=== PATIENT | male | born 1950 | race Two or more races ===

== ENCOUNTER 2020-04-06 17:45 | Inpatient (IN) | payer SELFPAY ==
[~2020-04-06] VITALS: Ht 182.9 cm; Wt 100.2 kg
--- NOTE | 2020-04-06 18:32 | Emergency Room Report ---
History of Present Illness General Chief Complaint: Dyspnea/Respdistress Source: Patient Present Illness HPI Disclaimer: Please note that this report is being documented using LiquidMON technology. This can lead to erroneous entry secondary to incorrect interpretation by the dictating instrument. HPI: 69-year-old male no reported past medical history presented from home due to shortness of breath. Patient tested positive for Covid approximately 2 to 3 weeks ago. He reports a cough, shortness of breath, and lower extremity edema. He denies any diabetes, hypertension or cardiac history. Intermittent fever. Currently not on any medication. Allergies: Coded Allergies: No Known Allergies (Unverified , 04/06/20) COVID-19 Screening Contact w/high risk pt: No Experienced COVID-19 symptoms?: Yes COVID-19 Testing performed [employer]: Yes COVID-19 Screening: Positive COVID-19 COVID-19 Testing Source: 1 month ago Patient History Reviewed Nursing Documentation: PMH: Agreed; PSxH: Agreed Nursing Documentation-PMH Past Medical History: No Stated History Review of Systems All Other Systems: negative except mentioned in HPI Physical Exam Vital Signs Date Time Temp Pulse Resp B/P (MAP) Pulse Ox O2 Delivery O2 Flow Rate FiO2 04/06/20 17:57 98.1 97 24 127/78 (94) 87 Room Air Sp02 EP Interpretation: reviewed, abnormal General Appearance: GCS 15, moderate distress Head: normocephalic, atraumatic Eyes: bilateral eye PERRL, bilateral eye EOMI ENT: hearing grossly normal, moist mucus membranes Neck: full range of motion, supple Respiratory: lungs clear, normal breath sounds, no rhonchi, no retraction, no wheezing, respiratory distress - Respiratory distress Cardiovascular #1: normal peripheral pulses, regular rate, rhythm, no murmur Gastrointestinal: non tender, soft, non-distended, no guarding Neurologic: alert, oriented x3, no focal defects Skin: normal color, warm/dry Procedures Critical Care Time Critical Care Time Critical care is made on this patient due to presentation with COVID-19 pneumonia and hypoxia requiring my acute intervention. Critical care time is 35 minutes and excludes procedures. Medical Decision Making Diagnostic Impression: Primary Impression: Pneumonia due to COVID-19 virus Additional Impression: Hypoxia ER Course MDM: Differential included but not limited to COVID-19 pneumonia, bacterial pneumonia, hypoxic respiratory failure to name a few. Clinical course-IV inserted, IV antibiotics and Decadron given. Patient was hypoxic so oxygen supplementation provided. Septic work-up initiated in the ER. Patient has known COVID-19 positive. Chest x-ray was consistent with bilateral infiltrates and COVID-19 pneumonia. Will require admission the hospital due to hypoxia and COVID-19 pneumonia. Troponin was mildly elevated and BNP elevated as well. Patient given a dose of Lasix in addition to Lovenox secondary to his peripheral edema. Patient will require further work-up on the telemetry floor. Ay have Labs - Laboratory Tests Test 04/06/20 18:54 04/06/20 19:12 04/06/20 20:14 White Blood Count 9.5 K/UL (4.8-10.8) Red Blood Count 4.58 M/UL (4.70-6.10) L Hemoglobin 13.7 G/DL (14.2-18.0) L Hematocrit 43.7 % (42.0-52.0) Mean Corpuscular Volume 95 FL (80-99) Mean Corpuscular Hemoglobin 29.8 PG (27.0-31.0) Mean Corpuscular Hemoglobin Concent 31.3 G/DL (32.0-36.0) L Red Cell Distribution Width 14.4 % (11.6-14.8) Platelet Count 192 K/UL (150-450) Mean Platelet Volume 7.1 FL (6.5-10.1) Neutrophils (%) (Auto) % (45.0-75.0) Lymphocytes (%) (Auto) % (20.0-45.0) Monocytes (%) (Auto) % (1.0-10.0) Eosinophils (%) (Auto) % (0.0-3.0) Basophils (%) (Auto) % (0.0-2.0) Differential Total Cells Counted 100 Neutrophils % (Manual) 82 % (45-75) H Lymphocytes % (Manual) 10 % (20-45) L Monocytes % (Manual) 1 % (1-10) Eosinophils % (Manual) 0 % (0-3) Basophils % (Manual) 2 % (0-2) Band Neutrophils 5 % (0-8) Platelet Estimate Adequate Platelet Morphology Normal Red Blood Cell Morphology Normal Prothrombin Time 12.7 SEC (9.30-11.50) H Prothrombin Time INR 1.2 (0.9-1.1) H Activated Partial Thromboplast Time 28 SEC (23-33) D-Dimer 2.05 mg/L FEU (0.00-0.49) H Sodium Level 135 MMOL/L (136-145) L Potassium Level 3.8 MMOL/L (3.5-5.1) Chloride Level 102 MMOL/L (98-107) Carbon Dioxide Level 27 MMOL/L (21-32) Anion Gap 6 mmol/L (5-15) Blood Urea Nitrogen 25 mg/dL (7-18) H Creatinine 1.2 MG/DL (0.55-1.30) Estimated Glomerular Filtration Rate > 60 mL/min (>60) Glucose Level 97 MG/DL (74-106) Lactic Acid Level 1.80 mmol/L (0.4-2.0) Calcium Level 8.0 MG/DL (8.5-10.1) L Ferritin 643 NG/ML (8-388) H Total Bilirubin 0.8 MG/DL (0.2-1.0) Aspartate Amino Transferase (AST) 148 U/L (15-37) H Alanine Aminotransferase (ALT) 188 U/L (12-78) H Alkaline Phosphatase 126 U/L (46-116) H Lactate Dehydrogenase 735 U/L (81-234) H Troponin I 0.076 ng/mL (0.000-0.056) C-Reactive Protein, Quantitative Pending Pro-B-Type Natriuretic Peptide 06649 pg/mL (0-125) H Total Protein 5.9 G/DL (6.4-8.2) L Albumin 2.0 G/DL (3.4-5.0) L Globulin 3.9 g/dL Albumin/Globulin Ratio 0.5 (1.0-2.7) L Lipase 530 U/L (73-393) H Arterial Blood pH 7.502 (7.350-7.450) Arterial Blood Partial Pressure CO2 33.7 mmHg (35.0-45.0) L Arterial Blood Partial Pressure O2 52.7 mmHg (75.0-100.0) L Arterial Blood HCO3 25.8 mmol/L (22.0-26.0) Arterial Blood Oxygen Saturation 88.5 % (95-100) *L Arterial Blood Base Excess 3.1 (-2-2) H Deo Test Positive Urine Color Yellow Urine Appearance Clear Urine pH 5 (4.5-8.0) Urine Specific [place] 1.010 (1.005-1.035) Urine Protein 3+ (NEGATIVE) H Urine Glucose (UA) Negative (NEGATIVE) Urine Ketones 1+ (NEGATIVE) H Urine Blood 1+ (NEGATIVE) H Urine Nitrite Negative (NEGATIVE) Urine Bilirubin Negative (NEGATIVE) Urine Urobilinogen 4 MG/DL (0.0-1.0) H Urine Leukocyte Esterase 1+ (NEGATIVE) H Urine RBC 0-2 /HPF (0 - 0) H Urine WBC 0-2 /HPF (0 - 0) Urine Squamous Epithelial Cells None /LPF (NONE/OCC) Urine Bacteria Occasional /HPF (NONE) Microbiology Date/Time Source Procedure Growth Status 04/06/20 18:54 Nasopharynx SARS-CoV-2 RdRp Gene Assay - Final Complete On reevaluation: Patient more comfortable but still tachypneic nasal cannula Plan-admission to the telemetry floor under Dr. Magallon EKG Diagnostic Results Rate: tachycardiac Rhythm: other Other Impression Left anterior fascicular block, Rhythm Strip Diag. Results EP Interpretation: yes Rate: 98 Rhythm: NSR, no ectopy Chest X-Ray Diagnostic Results Chest X-Ray Diagnostic Results : Chest X-Ray Ordered: Yes # of Views/Limited/Complete: 1 View Indication: Shortness of Breath Interpretation: other - Bilateral infiltrates noted no pneumothorax, mild ca rdiomegaly Electronically Signed by: Alexander Ojeda MD Last Vital Signs Date Time Temp Pulse Resp B/P (MAP) Pulse Ox O2 Delivery O2 Flow Rate FiO2 04/06/20 17:57 98.1 97 24 127/78 (94) 87 Room Air Disposition: ADMITTED INPATIENT Condition: Serious Scripts No Active Prescriptions or Reported Meds Referrals: NOT CHOSEN IPA/,REFERRING (PCP) Alexander Ojeda M.D. Apr 06, 2020 18:32
[2020-04-06] MEDS ORDERED: Azithromycin 500 MG in NS 275 ML IVPB ONE (19:00)
[2020-04-06] MEDS ORDERED: dexAMETHasone 10mg/ml Inj IV ONE (19:00)
[2020-04-06] MEDS ORDERED: cefTRIAXone 1 GM in NS 55 ML IV ONE (19:00)
[2020-04-06 19:47] LABS: HEMATOCRIT 43.7 % (42.0-52.0); HEMOGLOBIN 13.7 G/DL (14.2-18.0); MEAN CORPUSCULAR VOLUME 95 FL (80-99); PLATELET COUNT 192 K/UL (150-450); RED BLOOD COUNT 4.58 M/UL (4.70-6.10); RED CELL DISTRIBUTION WIDTH 14.4 % (11.6-14.8); WHITE BLOOD COUNT 9.5 K/UL (4.8-10.8)
[2020-04-06 19:57] LABS: INR 1.2 (0.9-1.1)
[2020-04-06 19:58] LABS: ANION GAP 6 mmol/L (5-15); BLOOD UREA NITROGEN 25 mg/dL (7-18); CARBON DIOXIDE 27 MMOL/L (21-32); CHLORIDE 102 MMOL/L (98-107); CREATININE 1.2 MG/DL (0.55-1.30); POTASSIUM 3.8 MMOL/L (3.5-5.1); SODIUM 135 MMOL/L (136-145)
[2020-04-06 20:05] VITALS: BP 124/76
[2020-04-06 20:21] LABS: ALANINE AMINOTRANSFERASE 188 U/L (12-78); ALBUMIN/GLOBULIN RATIO 0.5 (1.0-2.7); ALKALINE PHOSPHATASE 126 U/L (46-116); ASPARTATE AMINO TRANSFERASE 148 U/L (15-37); BILIRUBIN,TOTAL 0.8 MG/DL (0.2-1.0); FERRITIN 643 NG/ML (8-388); LACTATE DEHYDROGENASE 735 U/L (81-234)
[2020-04-06 21:27] LABS: APPEARANCE,URINE CLEAR; BILIRUBIN, URINE NEGATIVE (NEGATIVE); GLUCOSE, URINE (UA) NEGATIVE (NEGATIVE); KETONES,URINE 1+ (NEGATIVE); LEUKOCYTE ESTERASE ,URINE 1+ (NEGATIVE); NITRITE,URINE NEGATIVE (NEGATIVE); PH,URINE 5 (4.5-8.0); PROTEIN,URINE 3+ (NEGATIVE); UROBILINOGEN,URINE 4 MG/DL (0.0-1.0)
[2020-04-06 21:30] LABS: COLOR,URINE YELLOW
[2020-04-06] MEDS ORDERED: Aspirin Baby 81mg ORAL ONE (21:30)
[2020-04-06] MEDS ORDERED: Enoxaparin 40mg Inj SUBQ SCH (21:30)
[2020-04-07] MEDS ORDERED: Albuterol/Ipratropium 3ml neb HHN PRN (01:00)
[2020-04-07 04:00] VITALS: BP 134/93
[2020-04-07 05:52] LABS: HEMATOCRIT 42.5 % (42.0-52.0); HEMOGLOBIN 13.8 G/DL (14.2-18.0); MEAN CORPUSCULAR VOLUME 93 FL (80-99); PLATELET COUNT 186 K/UL (150-450); RED BLOOD COUNT 4.58 M/UL (4.70-6.10); RED CELL DISTRIBUTION WIDTH 14.9 % (11.6-14.8); WHITE BLOOD COUNT 8.3 K/UL (4.8-10.8)
[2020-04-07 06:23] LABS: ALANINE AMINOTRANSFERASE 160 U/L (12-78); ALBUMIN 1.8 G/DL (3.4-5.0); ALBUMIN/GLOBULIN RATIO 0.4 (1.0-2.7); ALKALINE PHOSPHATASE 123 U/L (46-116); ANION GAP 8 mmol/L (5-15); ASPARTATE AMINO TRANSFERASE 108 U/L (15-37); BILIRUBIN,TOTAL 0.7 MG/DL (0.2-1.0); BLOOD UREA NITROGEN 24 mg/dL (7-18); CALCIUM 8.1 MG/DL (8.5-10.1); CARBON DIOXIDE 27 MMOL/L (21-32); CHLORIDE 101 MMOL/L (98-107); CREATININE 1.2 MG/DL (0.55-1.30); PHOSPHORUS 4.3 MG/DL (2.5-4.9); SODIUM 135 MMOL/L (136-145)
[2020-04-07 08:00] VITALS: BP 141/90
--- NOTE | 2020-04-07 08:52 | History & Physical ---
History of Present Illness General Reason for Hospitalization: Dyspnea/Respdistress Present Illness HPI 69-year-old male no reported past medical history presented from home due to shortness of breath. Patient tested positive for Covid approximately 2 to 3 weeks ago. He reports a cough, shortness of breath, and lower extremity edema. He denies any diabetes, hypertension or cardiac history. Intermittent fever. Currently not on any medication. Allergies: Coded Allergies: No Known Allergies (Unverified , 04/06/20) COVID-19 Screening Contact w/high risk pt: No Experienced COVID-19 symptoms?: Yes Coronavirus symptoms experienc: Shortness of Breath, Cough Medication History No Active Prescriptions or Reported Meds Patient History Healthcare decision maker Resuscitation status Advanced Directive on File Review of Systems Review of Symptoms General ROS: no weight loss or fever Psychological ROS: no depression or mood changes, no memory loss Ophthalmic ROS: no visual changes or eye irritation ENT ROS: no nasal congestion, hearing loss, dizziness Allergy and Immunology ROS: no allergic symptoms or urticaria Hematological and Lymphatic ROS: no swollen glands, unusual bleeding or bruising Endocrine ROS: no polyuria, polydipsia, weight changes, temperature intolerance Respiratory ROS: no cough, shortness of breath, or wheezing Cardiovascular ROS: no chest pain or dyspnea on exertion Gastrointestinal ROS: denies abdominal pain, bright red blood in stool. Musculoskeletal ROS: no myalgias or arthralgias Neurological ROS: no TIA or stroke symptoms Dermatological ROS: no new or changing skin lesions, rashes or pruritis Physical Exam Physical Exam General appearance: alert, cooperative, no distress, appears stated age Head: Normocephalic, without obvious abnormality, atraumatic Eyes: conjunctivae/corneas clear. PERRL, EOM's intact. Fundi benign Throat: Lips, mucosa, and tongue normal. Teeth and gums normal Neck: supple, symmetrical, trachea midline, no adenopathy, thyroid: not enlarged, symmetric, no tenderness/mass/nodules, no carotid bruit and no JVD Lungs: + rhonchi bilaterally Heart: regular rate and rhythm, S1, S2 normal, no murmur, click, rub or gallop Abdomen: soft, non-tender. Bowel sounds normal. No masses, no organomegaly Extremities: 1+ pedal edema Pulses: 2+ and symmetric Skin: Skin color, texture, turgor normal. No rashes or lesions Neurologic: Grossly normal Last 24 Hour Vital Signs Date Time Temp Pulse Resp B/P (MAP) Pulse Ox O2 Delivery O2 Flow Rate FiO2 04/07/20 04:00 103 04/07/20 04:00 97.7 22 134/93 (107) 96 04/07/20 01:10 Nasal Cannula 4.0 04/07/20 00:40 97.9 92 28 132/79 98 Nasal Cannula 4.0 04/06/20 20:05 98.0 88 30 124/76 99 Nasal Cannula 2.0 04/06/20 19:06 105 28 Room Air 04/06/20 17:57 98.1 97 24 127/78 (94) 87 Room Air Intake and Output 04/06/20 04/07/20 19:00 07:00 Intake Total 240 ml Balance 240 ml Intake Oral 240 ml # Voids 2 Laboratory Tests Test 04/06/20 18:54 04/06/20 19:12 04/06/20 20:14 04/07/20 03:30 White Blood Count 9.5 K/UL (4.8-10.8) 8.3 K/UL (4.8-10.8) Red Blood Count 4.58 M/UL (4.70-6.10) L 4.58 M/UL (4.70-6.10) L Hemoglobin 13.7 G/DL (14.2-18.0) L 13.8 G/DL (14.2-18.0) L Hematocrit 43.7 % (42.0-52.0) 42.5 % (42.0-52.0) Mean Corpuscular Volume 95 FL (80-99) 93 FL (80-99) Mean Corpuscular Hemoglobin 29.8 PG (27.0-31.0) 30.1 PG (27.0-31.0) Mean Corpuscular Hemoglobin Concent 31.3 G/DL (32.0-36.0) L 32.5 G/DL (32.0-36.0) Red Cell Distribution Width 14.4 % (11.6-14.8) 14.9 % (11.6-14.8) H Platelet Count 192 K/UL (150-450) 186 K/UL (150-450) Mean Platelet Volume 7.1 FL (6.5-10.1) 6.6 FL (6.5-10.1) Neutrophils (%) (Auto) % (45.0-75.0) % (45.0-75.0) Lymphocytes (%) (Auto) % (20.0-45.0) % (20.0-45.0) Monocytes (%) (Auto) % (1.0-10.0) % (1.0-10.0) Eosinophils (%) (Auto) % (0.0-3.0) % (0.0-3.0) Basophils (%) (Auto) % (0.0-2.0) % (0.0-2.0) Differential Total Cells Counted 100 Neutrophils % (Manual) 82 % (45-75) H Pending Lymphocytes % (Manual) 10 % (20-45) L Pending Monocytes % (Manual) 1 % (1-10) Eosinophils % (Manual) 0 % (0-3) Basophils % (Manual) 2 % (0-2) Band Neutrophils 5 % (0-8) Platelet Estimate Adequate Pending Platelet Morphology Normal Pending Red Blood Cell Morphology Normal Prothrombin Time 12.7 SEC (9.30-11.50) H Prothromb Time International Ratio 1.2 (0.9-1.1) H Activated Partial Thromboplast Time 28 SEC (23-33) D-Dimer 2.05 mg/L FEU (0.00-0.49) H Sodium Level 135 MMOL/L (136-145) L 135 MMOL/L (136-145) L Potassium Level 3.8 MMOL/L (3.5-5.1) 4.0 MMOL/L (3.5-5.1) Chloride Level 102 MMOL/L (98-107) 101 MMOL/L (98-107) Carbon Dioxide Level 27 MMOL/L (21-32) 27 MMOL/L (21-32) Anion Gap 6 mmol/L (5-15) 8 mmol/L (5-15) Blood Urea Nitrogen 25 mg/dL (7-18) H 24 mg/dL (7-18) H Creatinine 1.2 MG/DL (0.55-1.30) 1.2 MG/DL (0.55-1.30) Estimat Glomerular Filtration Rate > 60 mL/min (>60) > 60 mL/min (>60) Glucose Level 97 MG/DL (74-106) 163 MG/DL (74-106) H Lactic Acid Level 1.80 mmol/L (0.4-2.0) Calcium Level 8.0 MG/DL (8.5-10.1) L 8.1 MG/DL (8.5-10.1) L Ferritin 643 NG/ML (8-388) H Total Bilirubin 0.8 MG/DL (0.2-1.0) 0.7 MG/DL (0.2-1.0) Aspartate Amino Transf (AST/SGOT) 148 U/L (15-37) H 108 U/L (15-37) H Alanine Aminotransferase (ALT/SGPT) 188 U/L (12-78) H 160 U/L (12-78) H Alkaline Phosphatase 126 U/L (46-116) H 123 U/L (46-116) H Lactate Dehydrogenase 735 U/L (81-234) H Troponin I 0.076 ng/mL (0.000-0.056) C-Reactive Protein, Quantitative Pending Pro-B-Type Natriuretic Peptide 14229 pg/mL (0-125) H Total Protein 5.9 G/DL (6.4-8.2) L 5.8 G/DL (6.4-8.2) L Albumin 2.0 G/DL (3.4-5.0) L 1.8 G/DL (3.4-5.0) L Globulin 3.9 g/dL 4.0 g/dL Albumin/Globulin Ratio 0.5 (1.0-2.7) L 0.4 (1.0-2.7) L Lipase 530 U/L (73-393) H Arterial Blood pH 7.502 (7.350-7.450) Arterial Blood Partial Pressure CO2 33.7 mmHg (35.0-45.0) L Arterial Blood Partial Pressure O2 52.7 mmHg (75.0-100.0) L Arterial Blood HCO3 25.8 mmol/L (22.0-26.0) Arterial Blood Oxygen Saturation 88.5 % (95-100) *L Arterial Blood Base Excess 3.1 (-2-2) H Deo Test Positive Urine Color Yellow Urine Appearance Clear Urine pH 5 (4.5-8.0) Urine Specific [place] 1.010 (1.005-1.035) Urine Protein 3+ (NEGATIVE) H Urine Glucose (UA) Negative (NEGATIVE) Urine Ketones 1+ (NEGATIVE) H Urine Blood 1+ (NEGATIVE) H Urine Nitrite Negative (NEGATIVE) Urine Bilirubin Negative (NEGATIVE) Urine Urobilinogen 4 MG/DL (0.0-1.0) H Urine Leukocyte Esterase 1+ (NEGATIVE) H Urine RBC 0-2 /HPF (0 - 0) H Urine WBC 0-2 /HPF (0 - 0) Urine Squamous Epithelial Cells None /LPF (NONE/OCC) Urine Bacteria Occasional /HPF (NONE) Phosphorus Level 4.3 MG/DL (2.5-4.9) Magnesium Level 1.6 MG/DL (1.8-2.4) L Microbiology Date/Time Source Procedure Growth Status 04/06/20 18:54 Nasopharynx SARS-CoV-2 RdRp Gene Assay - Final Complete Height (Feet): 6 Height (Inches): 0.00 Weight (Pounds): 200 Medications Current Medications Medications (Trade) Dose Ordered Sig/Rima Route PRN Reason Start Time Stop Time Status Last Admin Dose Admin Acetaminophen (Tylenol) 650 mg Q6H PRN ORAL For Pain 04/07/20 01:00 05/07/20 00:59 Acetaminophen (Tylenol) 650 mg Q6H PRN ORAL Temp >100.5 04/07/20 01:00 05/07/20 00:59 Albuterol/ Ipratropium (Albuterol/ Ipratropium) 3 ml Q4H PRN HHN Shortness of Breath 04/07/20 01:00 04/12/20 00:59 Dexamethasone Sodium Phosphate (Decadron 4mg/ml vial) 6 mg DAILY IVP 04/07/20 09:00 04/16/20 08:59 Furosemide (Lasix) 20 mg DAILY IV 04/07/20 09:00 05/07/20 08:59 Heparin Sodium (Porcine) (Heparin 5000 units/ml) 5,000 units EVERY 12 HOURS SUBQ 04/07/20 09:00 05/22/20 08:59 Assessment/Plan Diagnosis [place] I: #COVID infection #elevated trop #LE edema #Elevated BNP #elevated lipase - admit tele - ID eval - pulm eval - cardiology eval - 2d echo - LE duplex - dexamethasone - monitor lytes - abd US - lasix 20 IV daily - metop 25 BID - aspirin 81mg daily MIPS Hospital declaration I spent 70 minutes on this patient's case, and 35 minutes was dedicated to counseling and/or care coordination. MIPS ([employer]-based Incentive Payment System) Applicable CPT: 83106, 09332 CHECK ALL THAT ARE MET: Measure #5 (CHF): All ages. Prescribe [place]/ARB upon discharge for patients with left ventricular systolic dysfunction. If not, the reason is clearly documented in the medical chart. Measure #8 (CHF): All ages. Prescribe a beta sharifa upon discharge for patients with left ventricular systolic dysfunction. If not, the reason is clearly documented in the medical chart. Measure #47 Advance care plan or surrogate decision maker documented in the medical record. Measure #130 The provider has documented, updated, or reviewed the patients current medication list and has documented it in the patients note. Measure #374 (All): Send report to referring provider. Measure #407(Sepsis due to MSSA bacteremia): Age 18+ Patient treated with a beta-lactam antibiotic (Nafcillin, Oxacillin or Cefazolin) as definitive therapy. MEDICAL COMPLEXITY High complexity medical decision making (need 2/3 categories) Problem - need 4 points Acute/new problem with new plan for workup (4 points, 1 max) Acute/new problem without additional workup (3 points, 1 max) Unstable chronic problem actively being managed (2 point each, 2 max) Stable chronic problem actively being managed (1 point each, 2 max) Self-limited/transient process (constipation, muscle ache, etc) (1 point each, 2 max) Data - need 4 points Reviewed labs/imaging studies (1 points, 2 max) Independent review of imaging (EKG, xrays, etc) (2 points, 2 max) Discussed case with consult/other MD/RN (2 points, 2 max) High Risk - qualify if have one of the following: Severe exacerbation of acute problem, acute mental status change, IV narcotics, monitoring drug levels (vancomycin, INR, tacrolimus etc) Didier Magallon M.D. Apr 07, 2020 08:52
[2020-04-07] MEDS: Heparin 5000 units/ml inj SUBQ SCH ×2 (09:08→21:23)
[2020-04-07 12:00] VITALS: BP 147/96
--- NOTE | 2020-04-07 14:04 | Consultation ---
Consult Note Consult Note DATE OF CONSULTATION: 04/07/2020 CONSULTING PHYSICIAN: Chan Lucio MD. ATTENDING PHYSICIAN: Dr. Magallon REASON FOR CONSULTATION: COVID-19, shortness of breath HISTORY OF PRESENT ILLNESS: This is a 69-year-old male with no reported past medical history who presented to the ER from home for evaluation of shortness of breath. Patient reports testing positive for COVID-19 approximately 2 to 3 weeks ago. He reports associated cough, and lower extremity edema. He denies any diabetes, hypertension, or cardiac history. Initial laboratory studies are remarkable for elevated LFTs, elevated troponin, elevated BUN, respiratory alkalosis, proteinuria, ketonuria and presence of leukocyte esterase on UA. Chest x-ray read by ER MD showed bilateral infiltrates with mild cardiomegaly. Patient received aspirin, Lasix, Lovenox, Decadron, ceftriaxone and azithromycin in the ER and was admitted to the hospital for further management. On evaluation, patient is sitting on the edge of bed with mild respiratory distress on 4 L NC. Patient is saturating at 96-98%. PAST MEDICAL HISTORY: Nonpertinent per patient MEDICATIONS: None per patient ALLERGIES: No known allergies FAMILY HISTORY: Unknown PERSONAL/SOCIAL HISTORY: Patient is from home REVIEW OF SYSTEMS: Negative except for mentioned in HPI PHYSICAL EXAMINATION: VITAL SIGNS: Blood pressure 147/96, heart rate 104, respiratory rate 22, weight 90 kg, height 182 cm. General: Sitting on the edge of bed with normal work of breathing on 4 L NC HEENT: Head exam reveals that the head is normocephalic, atraumatic without deformity or unusual swelling. Pupils are PERRLA. CHEST AND LUNGS: Reveals clear, normal, symmetrical breath sounds with no adventitious sounds. CARDIOVASCULAR: Reveals normal S1, S2 without murmurs, rubs, or clicks. ABDOMEN: Soft with no tenderness or organomegaly. RECTAL: Deferred. MUSCULOSKELETAL: There is no tenderness to palpation. Range of motion is normal. Bilateral 1+ pitting edema in lower extremities worse on the left NEUROLOGICAL: Alert and oriented x3 , nonfocal LABORATORY DATA: Laboratory testing shows WBC 8.3, hemoglobin 13.8. Sodium 135, BUN 24, glucose 163, calcium 8.1, magnesium 1.6, AST 108, ALT 160, alk phos 123 Chemistries show sodium 135, BUN 24, glucose 163, calcium 8.1, magnesium 1.6, AST 108, ALT 160, alk phos 123, Troponin 0.076, BNP 12274 Urinalysis shows 3+ protein, 1+ ketones, 1+ blood, 1+ leuk esterase Assessment/Plan 1. Hyperglycemia -Monitor BG -Of note, he is on Decadron 2. Leg edema -Patient is on Lasix -Venous duplex ultrasound of LE pending - 2D echo pending 3. COVID-19 pneumonia with respiratory distress -Agree with dexamethasone - s/p broad spectrum Abx in ER - Antibiotics per ID -Currently saturating at 96-98% on 4 L NC -Continue providing on supplemental oxygen 4. DVT prophylaxis -On heparin 5. Respiratory alkalosis -Continue supplemental oxygen -Monitor ABG 6. ?UTI - per primary MD, and ID 7. The care for this patient was discussed with my supervising physician. Time spent for this case was approximately 31 minutes. Javan Wren Apr 07, 2020 14:04
--- NOTE | 2020-04-07 15:12 | Diagnostic Imaging Report ---
Procedure: XRAY Chest 1v Reason for study: Reason For Exam: SOB Comparison films: None. FINDINGS: A single one view chest is obtained. Vascularity is normal. Diffuse bilateral infiltrates noted. There is cardiomegaly. CP angles are sharp. The bony thorax appear unremarkable. IMPRESSION: Diffuse bilateral infiltrates.
--- NOTE | 2020-04-07 15:14 | Consultation ---
DATE OF CONSULTATION: 04/07/2020 INFECTIOUS DISEASES CONSULTATION CONSULTING PHYSICIAN: Hernan Greene MD This consult is for coverage of Catia Oglesby MD. PRIMARY ATTENDING PHYSICIAN: Didier Magallon MD REASON FOR CONSULT: COVID-19 disease. HISTORY OF PRESENT ILLNESS: This is a 69-year-old male admitted yesterday from home because of shortness of breath, coughing, and legs edema. The patient states that they had a positive COVID test a couple of weeks ago. PAST MEDICAL HISTORY: Insignificant. 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 ALLERGIES: No known drug allergies. MEDICATIONS: Getting Lasix, heparin, dexamethasone, albuterol/ipratropium inhaler, and Tylenol. Got a dose of ceftriaxone, Lasix, and azithromycin in the ER. SOCIAL HISTORY: from many years ago. Ex-smoker. Drinks alcohol. REVIEW OF SYSTEMS: As in history of present illness. PHYSICAL EXAMINATION: VITAL SIGNS: Temperature 97.7, pulse 103, blood pressure 134/93. GENERAL APPEARANCE: Well developed. HEAD AND NECK: [place] conjunctivae. HEART: Normal rate. LUNGS: Clear. ABDOMEN: Obese, soft. EXTREMITIES: He has edema of both legs. LABORATORY AND DIAGNOSTIC DATA: WBC 8.3, hemoglobin 13.8, hematocrit 42.5, and platelet is 186,000. Sodium 135, potassium 4, chloride 101, bicarb 27, BUN 24, creatinine 1.2, glucose is 163. AST 108, ALT 160, alkaline phosphatase 123, bilirubin 0.7. Troponin 0.076. Albumin is 1.8. Blood gas showed pH of 7.502, pCO2 of 33.5, pO2 of 52.7, O2 saturation is 88.5. COVID test was positive. IMPRESSION: COVID-19 disease. The patient states that he was positive for a couple of weeks. He has hypoxemia, hypoxemic respiratory failure. He has elevated transaminase. He has elevated BNP, may have CHF. He has decreased albumin. He has elevated lipase, likely pancreatitis. Alcohol abuse. RECOMMENDATION: Continue with dexamethasone. We will order echocardiogram and abdominal ultrasound. We will follow clinically. At the end of my exam, I thank Dr. Magallon for involving me in the care of this patient. Hernan Greene M.D. DR: NICOL JOB#: [id number] CC: [email or web address]
--- NOTE | 2020-04-07 15:20 | Diagnostic Imaging Report ---
EXAM: ULTRASOUND Venous Duplex Scan Ken Leg CLINICAL HISTORY: Leg pain and edema. COMPARISON: None TECHNIQUE: Doppler examination include grayscale images obtained with and without compression, and color and spectral doppler analysis. FINDINGS: Doppler examination shows normal spontaneity, phasicity, compressibility in the bilateral lower extremities. There is no thrombus identified by grayscale. Normal color and spectral flow is identified. There is no evidence of valvular incompetency or insufficiency. There is a left Lang[place]'s cyst noted. IMPRESSION: NO EVIDENCE OF DVT. LEFT LANGFORD'S CYST.
[2020-04-07 16:00] VITALS: BP 145/92
--- NOTE | 2020-04-07 17:05 | Cardiac Electrophysiology PN ---
Subjective Subjective [id number] Objective Last 24 Hour Vital Signs Date Time Temp Pulse Resp B/P (MAP) Pulse Ox O2 Delivery O2 Flow Rate FiO2 04/07/20 12:00 98.0 22 147/96 (113) 99 04/07/20 12:00 104 04/07/20 09:00 Nasal Cannula 4.0 04/07/20 08:00 101 04/07/20 08:00 98.2 23 141/90 (107) 93 04/07/20 04:00 103 04/07/20 04:00 97.7 22 134/93 (107) 96 04/07/20 01:10 Nasal Cannula 4.0 04/07/20 00:40 97.9 92 28 132/79 98 Nasal Cannula 4.0 04/06/20 20:05 98.0 88 30 124/76 99 Nasal Cannula 2.0 04/06/20 19:06 105 28 Room Air 04/06/20 17:57 98.1 97 24 127/78 (94) 87 Room Air Intake and Output 04/06/20 04/07/20 19:00 07:00 Intake Total 240 ml Balance 240 ml Intake Oral 240 ml # Voids 2 Laboratory Tests Test 04/06/20 18:54 04/06/20 19:12 04/06/20 20:14 04/07/20 03:30 White Blood Count 9.5 K/UL (4.8-10.8) 8.3 K/UL (4.8-10.8) Red Blood Count 4.58 M/UL (4.70-6.10) L 4.58 M/UL (4.70-6.10) L Hemoglobin 13.7 G/DL (14.2-18.0) L 13.8 G/DL (14.2-18.0) L Hematocrit 43.7 % (42.0-52.0) 42.5 % (42.0-52.0) Mean Corpuscular Volume 95 FL (80-99) 93 FL (80-99) Mean Corpuscular Hemoglobin 29.8 PG (27.0-31.0) 30.1 PG (27.0-31.0) Mean Corpuscular Hemoglobin Concent 31.3 G/DL (32.0-36.0) L 32.5 G/DL (32.0-36.0) Red Cell Distribution Width 14.4 % (11.6-14.8) 14.9 % (11.6-14.8) H Platelet Count 192 K/UL (150-450) 186 K/UL (150-450) Mean Platelet Volume 7.1 FL (6.5-10.1) 6.6 FL (6.5-10.1) Neutrophils (%) (Auto) % (45.0-75.0) % (45.0-75.0) Lymphocytes (%) (Auto) % (20.0-45.0) % (20.0-45.0) Monocytes (%) (Auto) % (1.0-10.0) % (1.0-10.0) Eosinophils (%) (Auto) % (0.0-3.0) % (0.0-3.0) Basophils (%) (Auto) % (0.0-2.0) % (0.0-2.0) Differential Total Cells Counted 100 100 Neutrophils % (Manual) 82 % (45-75) H 96 % (45-75) H Lymphocytes % (Manual) 10 % (20-45) L 3 % (20-45) L Monocytes % (Manual) 1 % (1-10) 1 % (1-10) Eosinophils % (Manual) 0 % (0-3) 0 % (0-3) Basophils % (Manual) 2 % (0-2) 0 % (0-2) Band Neutrophils 5 % (0-8) 0 % (0-8) Platelet Estimate Adequate Adequate Platelet Morphology Normal Normal Red Blood Cell Morphology Normal Prothrombin Time 12.7 SEC (9.30-11.50) H Prothromb Time International Ratio 1.2 (0.9-1.1) H Activated Partial Thromboplast Time 28 SEC (23-33) D-Dimer 2.05 mg/L FEU (0.00-0.49) H Sodium Level 135 MMOL/L (136-145) L 135 MMOL/L (136-145) L Potassium Level 3.8 MMOL/L (3.5-5.1) 4.0 MMOL/L (3.5-5.1) Chloride Level 102 MMOL/L (98-107) 101 MMOL/L (98-107) Carbon Dioxide Level 27 MMOL/L (21-32) 27 MMOL/L (21-32) Anion Gap 6 mmol/L (5-15) 8 mmol/L (5-15) Blood Urea Nitrogen 25 mg/dL (7-18) H 24 mg/dL (7-18) H Creatinine 1.2 MG/DL (0.55-1.30) 1.2 MG/DL (0.55-1.30) Estimat Glomerular Filtration Rate > 60 mL/min (>60) > 60 mL/min (>60) Glucose Level 97 MG/DL (74-106) 163 MG/DL (74-106) H Lactic Acid Level 1.80 mmol/L (0.4-2.0) Calcium Level 8.0 MG/DL (8.5-10.1) L 8.1 MG/DL (8.5-10.1) L Ferritin 643 NG/ML (8-388) H Total Bilirubin 0.8 MG/DL (0.2-1.0) 0.7 MG/DL (0.2-1.0) Aspartate Amino Transf (AST/SGOT) 148 U/L (15-37) H 108 U/L (15-37) H Alanine Aminotransferase (ALT/SGPT) 188 U/L (12-78) H 160 U/L (12-78) H Alkaline Phosphatase 126 U/L (46-116) H 123 U/L (46-116) H Lactate Dehydrogenase 735 U/L (81-234) H Troponin I 0.076 ng/mL (0.000-0.056) C-Reactive Protein, Quantitative Pending Pro-B-Type Natriuretic Peptide 77132 pg/mL (0-125) H Total Protein 5.9 G/DL (6.4-8.2) L 5.8 G/DL (6.4-8.2) L Albumin 2.0 G/DL (3.4-5.0) L 1.8 G/DL (3.4-5.0) L Globulin 3.9 g/dL 4.0 g/dL Albumin/Globulin Ratio 0.5 (1.0-2.7) L 0.4 (1.0-2.7) L Lipase 530 U/L (73-393) H Arterial Blood pH 7.502 (7.350-7.450) Arterial Blood Partial Pressure CO2 33.7 mmHg (35.0-45.0) L Arterial Blood Partial Pressure O2 52.7 mmHg (75.0-100.0) L Arterial Blood HCO3 25.8 mmol/L (22.0-26.0) Arterial Blood Oxygen Saturation 88.5 % (95-100) *L Arterial Blood Base Excess 3.1 (-2-2) H Deo Test Positive Urine Color Yellow Urine Appearance Clear Urine pH 5 (4.5-8.0) Urine Specific [place] 1.010 (1.005-1.035) Urine Protein 3+ (NEGATIVE) H Urine Glucose (UA) Negative (NEGATIVE) Urine Ketones 1+ (NEGATIVE) H Urine Blood 1+ (NEGATIVE) H Urine Nitrite Negative (NEGATIVE) Urine Bilirubin Negative (NEGATIVE) Urine Urobilinogen 4 MG/DL (0.0-1.0) H Urine Leukocyte Esterase 1+ (NEGATIVE) H Urine RBC 0-2 /HPF (0 - 0) H Urine WBC 0-2 /HPF (0 - 0) Urine Squamous Epithelial Cells None /LPF (NONE/OCC) Urine Bacteria Occasional /HPF (NONE) Anisocytosis 1+ Phosphorus Level 4.3 MG/DL (2.5-4.9) Magnesium Level 1.6 MG/DL (1.8-2.4) L Microbiology Date/Time Source Procedure Growth Status 04/06/20 18:54 Nasopharynx SARS-CoV-2 RdRp Gene Assay - Final Complete Tutu Farah MD Apr 07, 2020 17:05
--- NOTE | 2020-04-07 18:04 | Neurology Progress Note ---
Interim History Interim History Interim History seen this am for encephalopathy. 69-year-old male no reported past medical history presented from home due to shortness of breath. Patient tested positive for Covid approximately 2 to 3 weeks ago. He reports a cough, shortness of breath, and lower extremity edema. He denies any diabetes, hypertension or cardiac history. Intermittent fever. Now on oxygen, more responsive, non focal Objective Physical Exam Last Vital Signs Date Time Temp Pulse Resp B/P (MAP) Pulse Ox O2 Delivery O2 Flow Rate FiO2 04/07/20 16:00 97.5 23 145/92 (109) 100 04/07/20 12:00 104 04/07/20 09:00 Nasal Cannula 4.0 Laboratory Tests Test 04/06/20 18:54 04/06/20 19:12 04/06/20 20:14 04/07/20 03:30 White Blood Count 9.5 K/UL (4.8-10.8) 8.3 K/UL (4.8-10.8) Red Blood Count 4.58 M/UL (4.70-6.10) L 4.58 M/UL (4.70-6.10) L Hemoglobin 13.7 G/DL (14.2-18.0) L 13.8 G/DL (14.2-18.0) L Hematocrit 43.7 % (42.0-52.0) 42.5 % (42.0-52.0) Mean Corpuscular Volume 95 FL (80-99) 93 FL (80-99) Mean Corpuscular Hemoglobin 29.8 PG (27.0-31.0) 30.1 PG (27.0-31.0) Mean Corpuscular Hemoglobin Concent 31.3 G/DL (32.0-36.0) L 32.5 G/DL (32.0-36.0) Red Cell Distribution Width 14.4 % (11.6-14.8) 14.9 % (11.6-14.8) H Platelet Count 192 K/UL (150-450) 186 K/UL (150-450) Mean Platelet Volume 7.1 FL (6.5-10.1) 6.6 FL (6.5-10.1) Neutrophils (%) (Auto) % (45.0-75.0) % (45.0-75.0) Lymphocytes (%) (Auto) % (20.0-45.0) % (20.0-45.0) Monocytes (%) (Auto) % (1.0-10.0) % (1.0-10.0) Eosinophils (%) (Auto) % (0.0-3.0) % (0.0-3.0) Basophils (%) (Auto) % (0.0-2.0) % (0.0-2.0) Differential Total Cells Counted 100 100 Neutrophils % (Manual) 82 % (45-75) H 96 % (45-75) H Lymphocytes % (Manual) 10 % (20-45) L 3 % (20-45) L Monocytes % (Manual) 1 % (1-10) 1 % (1-10) Eosinophils % (Manual) 0 % (0-3) 0 % (0-3) Basophils % (Manual) 2 % (0-2) 0 % (0-2) Band Neutrophils 5 % (0-8) 0 % (0-8) Platelet Estimate Adequate Adequate Platelet Morphology Normal Normal Red Blood Cell Morphology Normal Prothrombin Time 12.7 SEC (9.30-11.50) H Prothromb Time International Ratio 1.2 (0.9-1.1) H Activated Partial Thromboplast Time 28 SEC (23-33) D-Dimer 2.05 mg/L FEU (0.00-0.49) H Sodium Level 135 MMOL/L (136-145) L 135 MMOL/L (136-145) L Potassium Level 3.8 MMOL/L (3.5-5.1) 4.0 MMOL/L (3.5-5.1) Chloride Level 102 MMOL/L (98-107) 101 MMOL/L (98-107) Carbon Dioxide Level 27 MMOL/L (21-32) 27 MMOL/L (21-32) Anion Gap 6 mmol/L (5-15) 8 mmol/L (5-15) Blood Urea Nitrogen 25 mg/dL (7-18) H 24 mg/dL (7-18) H Creatinine 1.2 MG/DL (0.55-1.30) 1.2 MG/DL (0.55-1.30) Estimat Glomerular Filtration Rate > 60 mL/min (>60) > 60 mL/min (>60) Glucose Level 97 MG/DL (74-106) 163 MG/DL (74-106) H Lactic Acid Level 1.80 mmol/L (0.4-2.0) Calcium Level 8.0 MG/DL (8.5-10.1) L 8.1 MG/DL (8.5-10.1) L Ferritin 643 NG/ML (8-388) H Total Bilirubin 0.8 MG/DL (0.2-1.0) 0.7 MG/DL (0.2-1.0) Aspartate Amino Transf (AST/SGOT) 148 U/L (15-37) H 108 U/L (15-37) H Alanine Aminotransferase (ALT/SGPT) 188 U/L (12-78) H 160 U/L (12-78) H Alkaline Phosphatase 126 U/L (46-116) H 123 U/L (46-116) H Lactate Dehydrogenase 735 U/L (81-234) H Troponin I 0.076 ng/mL (0.000-0.056) C-Reactive Protein, Quantitative Pending Pro-B-Type Natriuretic Peptide 93232 pg/mL (0-125) H Total Protein 5.9 G/DL (6.4-8.2) L 5.8 G/DL (6.4-8.2) L Albumin 2.0 G/DL (3.4-5.0) L 1.8 G/DL (3.4-5.0) L Globulin 3.9 g/dL 4.0 g/dL Albumin/Globulin Ratio 0.5 (1.0-2.7) L 0.4 (1.0-2.7) L Lipase 530 U/L (73-393) H Arterial Blood pH 7.502 (7.350-7.450) Arterial Blood Partial Pressure CO2 33.7 mmHg (35.0-45.0) L Arterial Blood Partial Pressure O2 52.7 mmHg (75.0-100.0) L Arterial Blood HCO3 25.8 mmol/L (22.0-26.0) Arterial Blood Oxygen Saturation 88.5 % (95-100) *L Arterial Blood Base Excess 3.1 (-2-2) H Deo Test Positive Urine Color Yellow Urine Appearance Clear Urine pH 5 (4.5-8.0) Urine Specific [place] 1.010 (1.005-1.035) Urine Protein 3+ (NEGATIVE) H Urine Glucose (UA) Negative (NEGATIVE) Urine Ketones 1+ (NEGATIVE) H Urine Blood 1+ (NEGATIVE) H Urine Nitrite Negative (NEGATIVE) Urine Bilirubin Negative (NEGATIVE) Urine Urobilinogen 4 MG/DL (0.0-1.0) H Urine Leukocyte Esterase 1+ (NEGATIVE) H Urine RBC 0-2 /HPF (0 - 0) H Urine WBC 0-2 /HPF (0 - 0) Urine Squamous Epithelial Cells None /LPF (NONE/OCC) Urine Bacteria Occasional /HPF (NONE) Anisocytosis 1+ Phosphorus Level 4.3 MG/DL (2.5-4.9) Magnesium Level 1.6 MG/DL (1.8-2.4) L General: well developed Head: normocophalic Neck: no rigidity EENT: benign Neurologic Exam Objective nc at more alert, responsive, oriented x 2 non focal, diffuse weakness Impression/Recommendations Problems: (1) Hypoxia (2) Pneumonia due to COVID-19 virus Diagnostic Impression encephalopathy likely 2/2 covid non focal exam defer neuro imaging delirium precautions Mark Edouard MD Apr 07, 2020 18:04
--- NOTE | 2020-04-07 18:15 | Consultation ---
DATE OF CONSULTATION: 04/07/2020 CARDIOLOGY CONSULTATION CONSULTING PHYSICIAN: Tutu Farah MD. REFERRING PHYSICIAN: Didier Magallon MD. REASON FOR CONSULTATION: Non-ST elevation myocardial infarction, congestive heart failure, as well as frequent PVCs in a patient with COVID pneumonia. HISTORY OF PRESENT ILLNESS: The patient is a 69-year-old gentleman who presented to the emergency room with shortness of breath and cough and he had also positive COVID test a couple of weeks ago. The patient also has history of surgical amputation of the left thumb. The patient was noted to have elevated troponin as well as elevated brain natriuretic peptide. On telemetry, the patient has frequent PVCs and Cardiology consultation was obtained for further evaluation and management. REVIEW OF SYSTEMS: Negative other than what was mentioned in history of present illness. PAST MEDICAL HISTORY: As mentioned above. FAMILY HISTORY: Noncontributory. MEDICATIONS: None. ALLERGIES: No known drug allergies. SOCIAL HISTORY: He lives at home. Does not smoke or drink alcohol. PHYSICAL EXAMINATION: VITAL SIGNS: Show blood pressure of 147/96, pulse 100, respirations 18, temperature 98. HEAD AND NECK: Shows mild JVD. LUNGS: Decreased breath sounds. CARDIOVASCULAR: Shows regular S1 and S2 with no gallop. ABDOMEN: Soft. EXTREMITIES: 1+ pitting edema. LABORATORY DATA: Labs show white count 8.3, hemoglobin 13.8, hematocrit 42, and platelet count 186,000. Sodium is 135, potassium 4.0, BUN of 24, creatinine 1.2, and glucose of 163. BNP is 12,342 and troponin is 0.076. ASSESSMENT AND PLAN: 1. Non-ST elevation myocardial infarction with troponin of 0.076. It could be some myocarditis due to the patient's COVID. The patient does not have renal failure and the creatinine is 1.2. We will repeat troponin as well as EKG and echocardiogram for further evaluation. 2. Congestive heart failure with BNP of more than 12,000. Again echocardiogram is pending. Continue the patient on Lasix 20 mg IV daily. 3. Elevated troponin. The patient is already on aspirin 81 mg daily and metoprolol 25 mg b.i.d. 4. Frequent PVCs. I will see what the echocardiogram shows, and rule out for myocardial infarction. Continue metoprolol 25 mg b.i.d. 5. COVID-19 pneumonia, on dexamethasone per ID. Thank you very much for allowing me to participate in the care of this patient. Please do not hesitate to contact me for any questions regarding my evaluation. Tutu Farah M.D. DR: KEIRY JOB#: [id number] CC:
--- NOTE | 2020-04-07 18:25 | Consultation ---
History of Present Illness General Date patient seen: Apr 07, 2020 Reason for Hospitalization: Dyspnea/Respdistress Present Illness HPI 69-year-old male no reported past medical history presented from home due to shortness of breath. Patient tested positive for Covid approximately 2 to 3 weeks ago. He reports a cough, shortness of breath, and lower extremity edema. He denies any diabetes, hypertension or cardiac history. Intermittent fever. Currently not on any medication. noted to have abnormal lft's. surgery called toe vlauate. no abd pain. no n/v/f/c. Allergies: Coded Allergies: No Known Allergies (Unverified , 04/06/20) COVID-19 Screening Contact w/high risk pt: No Experienced COVID-19 symptoms?: Yes Coronavirus symptoms experienc: Shortness of Breath, Cough Medication History No Active Prescriptions or Reported Meds Patient History History Provided By: Patient Healthcare decision maker Resuscitation status Advanced Directive on File Past Medical/Surgical History Past Medical/Surgical History: (1) Abnormal LFTs (2) Hypoxia (3) Pneumonia due to COVID-19 virus Review of Systems Review of Symptoms General ROS: no weight loss or fever Psychological ROS: no depression or mood changes, no memory loss Ophthalmic ROS: no visual changes or eye irritation ENT ROS: no nasal congestion, hearing loss, dizziness Allergy and Immunology ROS: no allergic symptoms or urticaria Hematological and Lymphatic ROS: no swollen glands, unusual bleeding or bruising Endocrine ROS: no polyuria, polydipsia, weight changes, temperature intolerance Respiratory ROS: no cough, shortness of breath, or wheezing Cardiovascular ROS: no chest pain or dyspnea on exertion Gastrointestinal ROS: denies abdominal pain, bright red blood in stool. Musculoskeletal ROS: no myalgias or arthralgias Neurological ROS: no TIA or stroke symptoms Dermatological ROS: no new or changing skin lesions, rashes or pruritis Physical Exam Physical Exam General appearance: alert, cooperative, no distress, appears stated age Head: Normocephalic, without obvious abnormality, atraumatic Eyes: conjunctivae/corneas clear. PERRL, EOM's intact. Fundi benign Throat: Lips, mucosa, and tongue normal. Teeth and gums normal Neck: supple, symmetrical, trachea midline, no adenopathy, thyroid: not enlarged, symmetric, no tenderness/mass/nodules, no carotid bruit and no JVD Lungs: clear to auscultation bilaterally Heart: regular rate and rhythm, S1, S2 normal, no murmur, click, rub or gallop Abdomen: soft, non-tender. Bowel sounds normal. No masses, no organomegaly Extremities: extremities normal, atraumatic, no cyanosis or edema Pulses: 2+ and symmetric Skin: Skin color, texture, turgor normal. No rashes or lesions Neurologic: Grossly normal Last 24 Hour Vital Signs Date Time Temp Pulse Resp B/P (MAP) Pulse Ox O2 Delivery O2 Flow Rate FiO2 04/07/20 16:00 104 04/07/20 16:00 97.5 23 145/92 (109) 100 04/07/20 12:00 98.0 22 147/96 (113) 99 04/07/20 12:00 104 04/07/20 09:00 Nasal Cannula 4.0 04/07/20 08:00 101 04/07/20 08:00 98.2 23 141/90 (107) 93 04/07/20 04:00 103 04/07/20 04:00 97.7 22 134/93 (107) 96 04/07/20 01:10 Nasal Cannula 4.0 04/07/20 00:40 97.9 92 28 132/79 98 Nasal Cannula 4.0 04/06/20 20:05 98.0 88 30 124/76 99 Nasal Cannula 2.0 04/06/20 19:06 105 28 Room Air Intake and Output 04/06/20 04/07/20 19:00 07:00 Intake Total 240 ml Balance 240 ml Intake Oral 240 ml # Voids 2 Laboratory Tests Test 04/06/20 18:54 04/06/20 19:12 04/06/20 20:14 04/07/20 03:30 White Blood Count 9.5 K/UL (4.8-10.8) 8.3 K/UL (4.8-10.8) Red Blood Count 4.58 M/UL (4.70-6.10) L 4.58 M/UL (4.70-6.10) L Hemoglobin 13.7 G/DL (14.2-18.0) L 13.8 G/DL (14.2-18.0) L Hematocrit 43.7 % (42.0-52.0) 42.5 % (42.0-52.0) Mean Corpuscular Volume 95 FL (80-99) 93 FL (80-99) Mean Corpuscular Hemoglobin 29.8 PG (27.0-31.0) 30.1 PG (27.0-31.0) Mean Corpuscular Hemoglobin Concent 31.3 G/DL (32.0-36.0) L 32.5 G/DL (32.0-36.0) Red Cell Distribution Width 14.4 % (11.6-14.8) 14.9 % (11.6-14.8) H Platelet Count 192 K/UL (150-450) 186 K/UL (150-450) Mean Platelet Volume 7.1 FL (6.5-10.1) 6.6 FL (6.5-10.1) Neutrophils (%) (Auto) % (45.0-75.0) % (45.0-75.0) Lymphocytes (%) (Auto) % (20.0-45.0) % (20.0-45.0) Monocytes (%) (Auto) % (1.0-10.0) % (1.0-10.0) Eosinophils (%) (Auto) % (0.0-3.0) % (0.0-3.0) Basophils (%) (Auto) % (0.0-2.0) % (0.0-2.0) Differential Total Cells Counted 100 100 Neutrophils % (Manual) 82 % (45-75) H 96 % (45-75) H Lymphocytes % (Manual) 10 % (20-45) L 3 % (20-45) L Monocytes % (Manual) 1 % (1-10) 1 % (1-10) Eosinophils % (Manual) 0 % (0-3) 0 % (0-3) Basophils % (Manual) 2 % (0-2) 0 % (0-2) Band Neutrophils 5 % (0-8) 0 % (0-8) Platelet Estimate Adequate Adequate Platelet Morphology Normal Normal Red Blood Cell Morphology Normal Prothrombin Time 12.7 SEC (9.30-11.50) H Prothromb Time International Ratio 1.2 (0.9-1.1) H Activated Partial Thromboplast Time 28 SEC (23-33) D-Dimer 2.05 mg/L FEU (0.00-0.49) H Sodium Level 135 MMOL/L (136-145) L 135 MMOL/L (136-145) L Potassium Level 3.8 MMOL/L (3.5-5.1) 4.0 MMOL/L (3.5-5.1) Chloride Level 102 MMOL/L (98-107) 101 MMOL/L (98-107) Carbon Dioxide Level 27 MMOL/L (21-32) 27 MMOL/L (21-32) Anion Gap 6 mmol/L (5-15) 8 mmol/L (5-15) Blood Urea Nitrogen 25 mg/dL (7-18) H 24 mg/dL (7-18) H Creatinine 1.2 MG/DL (0.55-1.30) 1.2 MG/DL (0.55-1.30) Estimat Glomerular Filtration Rate > 60 mL/min (>60) > 60 mL/min (>60) Glucose Level 97 MG/DL (74-106) 163 MG/DL (74-106) H Lactic Acid Level 1.80 mmol/L (0.4-2.0) Calcium Level 8.0 MG/DL (8.5-10.1) L 8.1 MG/DL (8.5-10.1) L Ferritin 643 NG/ML (8-388) H Total Bilirubin 0.8 MG/DL (0.2-1.0) 0.7 MG/DL (0.2-1.0) Aspartate Amino Transf (AST/SGOT) 148 U/L (15-37) H 108 U/L (15-37) H Alanine Aminotransferase (ALT/SGPT) 188 U/L (12-78) H 160 U/L (12-78) H Alkaline Phosphatase 126 U/L (46-116) H 123 U/L (46-116) H Lactate Dehydrogenase 735 U/L (81-234) H Troponin I 0.076 ng/mL (0.000-0.056) C-Reactive Protein, Quantitative Pending Pro-B-Type Natriuretic Peptide 17969 pg/mL (0-125) H Total Protein 5.9 G/DL (6.4-8.2) L 5.8 G/DL (6.4-8.2) L Albumin 2.0 G/DL (3.4-5.0) L 1.8 G/DL (3.4-5.0) L Globulin 3.9 g/dL 4.0 g/dL Albumin/Globulin Ratio 0.5 (1.0-2.7) L 0.4 (1.0-2.7) L Lipase 530 U/L (73-393) H Arterial Blood pH 7.502 (7.350-7.450) Arterial Blood Partial Pressure CO2 33.7 mmHg (35.0-45.0) L Arterial Blood Partial Pressure O2 52.7 mmHg (75.0-100.0) L Arterial Blood HCO3 25.8 mmol/L (22.0-26.0) Arterial Blood Oxygen Saturation 88.5 % (95-100) *L Arterial Blood Base Excess 3.1 (-2-2) H Deo Test Positive Urine Color Yellow Urine Appearance Clear Urine pH 5 (4.5-8.0) Urine Specific [place] 1.010 (1.005-1.035) Urine Protein 3+ (NEGATIVE) H Urine Glucose (UA) Negative (NEGATIVE) Urine Ketones 1+ (NEGATIVE) H Urine Blood 1+ (NEGATIVE) H Urine Nitrite Negative (NEGATIVE) Urine Bilirubin Negative (NEGATIVE) Urine Urobilinogen 4 MG/DL (0.0-1.0) H Urine Leukocyte Esterase 1+ (NEGATIVE) H Urine RBC 0-2 /HPF (0 - 0) H Urine WBC 0-2 /HPF (0 - 0) Urine Squamous Epithelial Cells None /LPF (NONE/OCC) Urine Bacteria Occasional /HPF (NONE) Anisocytosis 1+ Phosphorus Level 4.3 MG/DL (2.5-4.9) Magnesium Level 1.6 MG/DL (1.8-2.4) L Microbiology Date/Time Source Procedure Growth Status 04/06/20 18:54 Nasopharynx SARS-CoV-2 RdRp Gene Assay - Final Complete Height (Feet): 6 Height (Inches): 0.00 Weight (Pounds): 200 Medications Current Medications Medications (Trade) Dose Ordered Sig/Rima Route PRN Reason Start Time Stop Time Status Last Admin Dose Admin Acetaminophen (Tylenol) 650 mg Q6H PRN ORAL For Pain 04/07/20 01:00 05/07/20 00:59 Acetaminophen (Tylenol) 650 mg Q6H PRN ORAL Temp >100.5 04/07/20 01:00 05/07/20 00:59 Albuterol/ Ipratropium (Albuterol/ Ipratropium) 3 ml Q4H PRN HHN Shortness of Breath 04/07/20 01:00 04/12/20 00:59 Aspirin (Ecotrin) 81 mg DAILY ORAL 04/08/20 09:00 05/23/20 08:59 Dexamethasone Sodium Phosphate (Decadron 4mg/ml vial) 6 mg DAILY IVP 04/07/20 09:00 04/16/20 08:59 04/07/20 09:05 Furosemide (Lasix) 20 mg DAILY IV 04/07/20 09:00 05/07/20 08:59 04/07/20 09:04 Heparin Sodium (Porcine) (Heparin 5000 units/ml) 5,000 units EVERY 12 HOURS SUBQ 04/07/20 09:00 05/22/20 08:59 04/07/20 09:08 Metoprolol Tartrate (Lopressor) 25 mg Q12HR ORAL 04/07/20 21:00 07/06/20 20:59 Assessment/Plan Problem List: (1) Hypoxia ICD Codes: R09.02 - Hypoxemia; J12.82 - Pneumonia due to coronavirus disease 2019 SNOMED: 538926436 (2) Pneumonia due to COVID-19 virus ICD Codes: U07.1 - COVID-19; J12.82 - Pneumonia due to coronavirus disease 2019 SNOMED: [id number] (3) Abnormal LFTs Assessment & Plan: significantly elevated lfts on admission no etoh use meds noted and reviewed US ordered trend labs no abd pain exam benign will follow with recs thank you ICD Codes: R94.5 - Abnormal results of liver function studies SNOMED: [id number] Shaji Godinez Apr 07, 2020 18:25
[2020-04-07 20:00] VITALS: BP 148/90
[2020-04-07] MEDS ORDERED: guaiFENesin /DM 10ml syrup ORAL PRN (20:15)
[2020-04-08] VITALS: BP 136/94
[2020-04-08] MEDS ORDERED: Albuterol 90mcg Inhaler 8gm INH PRN (02:00)
[2020-04-08 04:00] VITALS: BP 126/82
[2020-04-08 05:08] LABS: INR 1.1 (0.9-1.1)
[2020-04-08 05:25] LABS: HEMATOCRIT 41.7 % (42.0-52.0); HEMOGLOBIN 13.4 G/DL (14.2-18.0); MEAN CORPUSCULAR VOLUME 94 FL (80-99); PLATELET COUNT 220 K/UL (150-450); RED BLOOD COUNT 4.45 M/UL (4.70-6.10); RED CELL DISTRIBUTION WIDTH 15.6 % (11.6-14.8); WHITE BLOOD COUNT 9.7 K/UL (4.8-10.8)
[2020-04-08 06:03] LABS: AMYLASE 70 U/L (25-115)
[2020-04-08 06:12] LABS: ALANINE AMINOTRANSFERASE 144 U/L (12-78); ALBUMIN 1.9 G/DL (3.4-5.0); ALBUMIN/GLOBULIN RATIO 0.6 (1.0-2.7); ALKALINE PHOSPHATASE 114 U/L (46-116); ANION GAP 4 mmol/L (5-15); ASPARTATE AMINO TRANSFERASE 109 U/L (15-37); BILIRUBIN,TOTAL 0.6 MG/DL (0.2-1.0); BLOOD UREA NITROGEN 28 mg/dL (7-18); CALCIUM 8.1 MG/DL (8.5-10.1); CARBON DIOXIDE 30 MMOL/L (21-32); CHLORIDE 103 MMOL/L (98-107); PHOSPHORUS 3.9 MG/DL (2.5-4.9); POTASSIUM 4.9 MMOL/L (3.5-5.1); SODIUM 137 MMOL/L (136-145)
[2020-04-08 08:00] VITALS: BP 129/93
[2020-04-08] MEDS: Aspirin EC 81mg tab ORAL SCH (09:00)
[2020-04-08] MEDS: Heparin 5000 units/ml inj SUBQ SCH ×2 (09:00→21:23)
--- NOTE | 2020-04-08 10:55 | Surgery Progress Note ---
Surgery Progress Note Subjective Additional Comments Patient seen and examined bedside. No acute events. Resting comfortably. Labs reviewed micro reviewed imaging reviewed. Afebrile hemodynamically stable at this time Objective Last 24 Hour Vital Signs Date Time Temp Pulse Resp B/P (MAP) Pulse Ox O2 Delivery O2 Flow Rate FiO2 04/08/20 09:00 90 126/82 04/08/20 08:39 Venturi Mask 15.0 04/08/20 04:00 90 04/08/20 04:00 97.5 92 20 126/82 (97) 94 04/08/20 00:00 97.4 91 22 136/94 (108) 96 04/08/20 00:00 108 04/07/20 21:22 101 148/90 04/07/20 21:00 Venturi Mask 15.0 04/07/20 20:00 96 04/07/20 20:00 97.5 19 148/90 (109) 95 04/07/20 16:00 104 04/07/20 16:00 97.5 23 145/92 (109) 100 04/07/20 12:00 98.0 22 147/96 (113) 99 04/07/20 12:00 104 I&O Intake and Output 04/07/20 04/08/20 19:00 07:00 Intake Total 350 ml Output Total 650 ml Balance 350 ml -650 ml Intake Oral 350 ml Output Urine Total 650 ml # Voids 6 3 # Bowel Movements 1 1 Cardiovascular: RSR Respiratory: clear Abdomen: soft, non-tender, present bowel sounds, non-distended Extremities: no edema, no tenderness, no cyanosis Laboratory Tests Test 04/08/20 04:00 White Blood Count 9.7 K/UL (4.8-10.8) Red Blood Count 4.45 M/UL (4.70-6.10) L Hemoglobin 13.4 G/DL (14.2-18.0) L Hematocrit 41.7 % (42.0-52.0) L Mean Corpuscular Volume 94 FL (80-99) Mean Corpuscular Hemoglobin 30.2 PG (27.0-31.0) Mean Corpuscular Hemoglobin Concent 32.2 G/DL (32.0-36.0) Red Cell Distribution Width 15.6 % (11.6-14.8) H Platelet Count 220 K/UL (150-450) Mean Platelet Volume 7.4 FL (6.5-10.1) Neutrophils (%) (Auto) % (45.0-75.0) Lymphocytes (%) (Auto) % (20.0-45.0) Monocytes (%) (Auto) % (1.0-10.0) Eosinophils (%) (Auto) % (0.0-3.0) Basophils (%) (Auto) % (0.0-2.0) Erythrocyte Sedimentation Rate 44 MM/HR (0-20) H Prothrombin Time 12.0 SEC (9.30-11.50) H Prothromb Time International Ratio 1.1 (0.9-1.1) Activated Partial Thromboplast Time 26 SEC (23-33) Sodium Level 137 MMOL/L (136-145) Potassium Level 4.9 MMOL/L (3.5-5.1) Chloride Level 103 MMOL/L (98-107) Carbon Dioxide Level 30 MMOL/L (21-32) Anion Gap 4 mmol/L (5-15) L Blood Urea Nitrogen 28 mg/dL (7-18) H Creatinine 1.0 MG/DL (0.55-1.30) Estimat Glomerular Filtration Rate > 60 mL/min (>60) Glucose Level 139 MG/DL (74-106) H Lactic Acid Level 1.60 mmol/L (0.4-2.0) Calcium Level 8.1 MG/DL (8.5-10.1) L Phosphorus Level 3.9 MG/DL (2.5-4.9) Magnesium Level 2.2 MG/DL (1.8-2.4) Total Bilirubin 0.6 MG/DL (0.2-1.0) Aspartate Amino Transf (AST/SGOT) 109 U/L (15-37) H Alanine Aminotransferase (ALT/SGPT) 144 U/L (12-78) H Alkaline Phosphatase 114 U/L (46-116) Troponin I 0.042 ng/mL (0.000-0.056) C-Reactive Protein, Quantitative Pending Pro-B-Type Natriuretic Peptide 68348 pg/mL (0-125) H Total Protein 5.3 G/DL (6.4-8.2) L Albumin 1.9 G/DL (3.4-5.0) L Globulin 3.4 g/dL Albumin/Globulin Ratio 0.6 (1.0-2.7) L Amylase Level 70 U/L (25-115) Lipase 307 U/L (73-393) Thyroid Stimulating Hormone (TSH) 0.215 uiU/mL (0.358-3.740) Free Thyroxine 1.03 NG/DL (0.76-1.46) Plan Problems: (1) Hypoxia (2) Pneumonia due to COVID-19 virus (3) Abnormal LFTs Assessment & Plan: significantly elevated lfts on admission no etoh use meds noted and reviewed US ordered trend labs no abd pain exam benign will follow with recs thank you Shaji Godinez Apr 08, 2020 10:55
--- NOTE | 2020-04-08 11:34 | Infectious Diseases Prog Note ---
Assessment/Plan Assessment/Plan antibiotics : none A 1. covid 19 pneumonia on 15 liters O2 with saturation 94 % 2. increased LFT 3. CHF P 1. start remdesivir 2. continue dexamethasone day 3 3. continue isolation Subjective Constitutional: Denies: fever, chills Respiratory: Reports: shortness of breath, dry cough Gastrointestinal/Abdominal: Reports: diarrhea; Denies: nausea, vomiting Musculoskeletal: Denies: pain Allergies: Coded Allergies: No Known Allergies (Unverified , 04/06/20) Objective Last 24 Hour Vital Signs Date Time Temp Pulse Resp B/P (MAP) Pulse Ox O2 Delivery O2 Flow Rate FiO2 04/08/20 09:00 90 126/82 04/08/20 08:39 Venturi Mask 15.0 04/08/20 04:00 90 04/08/20 04:00 97.5 92 20 126/82 (97) 94 04/08/20 00:00 97.4 91 22 136/94 (108) 96 04/08/20 00:00 108 04/07/20 21:22 101 148/90 04/07/20 21:00 Venturi Mask 15.0 04/07/20 20:00 96 04/07/20 20:00 97.5 19 148/90 (109) 95 04/07/20 16:00 104 04/07/20 16:00 97.5 23 145/92 (109) 100 04/07/20 12:00 98.0 22 147/96 (113) 99 04/07/20 12:00 104 Height (Feet): 6 Height (Inches): 0.00 Weight (Pounds): 200 Microbiology Date/Time Source Procedure Growth Status 04/06/20 18:54 Nasopharynx SARS-CoV-2 RdRp Gene Assay - Final Complete 04/06/20 18:54 Blood Blood Culture - Preliminary NO GROWTH AFTER 24 HOURS Resulted 04/06/20 18:40 Blood Blood Culture - Preliminary NO GROWTH AFTER 24 HOURS Resulted Laboratory Tests Test 04/08/20 04:00 White Blood Count 9.7 K/UL (4.8-10.8) Red Blood Count 4.45 M/UL (4.70-6.10) L Hemoglobin 13.4 G/DL (14.2-18.0) L Hematocrit 41.7 % (42.0-52.0) L Mean Corpuscular Volume 94 FL (80-99) Mean Corpuscular Hemoglobin 30.2 PG (27.0-31.0) Mean Corpuscular Hemoglobin Concent 32.2 G/DL (32.0-36.0) Red Cell Distribution Width 15.6 % (11.6-14.8) H Platelet Count 220 K/UL (150-450) Mean Platelet Volume 7.4 FL (6.5-10.1) Neutrophils (%) (Auto) % (45.0-75.0) Lymphocytes (%) (Auto) % (20.0-45.0) Monocytes (%) (Auto) % (1.0-10.0) Eosinophils (%) (Auto) % (0.0-3.0) Basophils (%) (Auto) % (0.0-2.0) Erythrocyte Sedimentation Rate 44 MM/HR (0-20) H Prothrombin Time 12.0 SEC (9.30-11.50) H Prothromb Time International Ratio 1.1 (0.9-1.1) Activated Partial Thromboplast Time 26 SEC (23-33) Sodium Level 137 MMOL/L (136-145) Potassium Level 4.9 MMOL/L (3.5-5.1) Chloride Level 103 MMOL/L (98-107) Carbon Dioxide Level 30 MMOL/L (21-32) Anion Gap 4 mmol/L (5-15) L Blood Urea Nitrogen 28 mg/dL (7-18) H Creatinine 1.0 MG/DL (0.55-1.30) Estimat Glomerular Filtration Rate > 60 mL/min (>60) Glucose Level 139 MG/DL (74-106) H Lactic Acid Level 1.60 mmol/L (0.4-2.0) Calcium Level 8.1 MG/DL (8.5-10.1) L Phosphorus Level 3.9 MG/DL (2.5-4.9) Magnesium Level 2.2 MG/DL (1.8-2.4) Total Bilirubin 0.6 MG/DL (0.2-1.0) Aspartate Amino Transf (AST/SGOT) 109 U/L (15-37) H Alanine Aminotransferase (ALT/SGPT) 144 U/L (12-78) H Alkaline Phosphatase 114 U/L (46-116) Troponin I 0.042 ng/mL (0.000-0.056) C-Reactive Protein, Quantitative Pending Pro-B-Type Natriuretic Peptide 72197 pg/mL (0-125) H Total Protein 5.3 G/DL (6.4-8.2) L Albumin 1.9 G/DL (3.4-5.0) L Globulin 3.4 g/dL Albumin/Globulin Ratio 0.6 (1.0-2.7) L Amylase Level 70 U/L (25-115) Lipase 307 U/L (73-393) Thyroid Stimulating Hormone (TSH) 0.215 uiU/mL (0.358-3.740) Free Thyroxine 1.03 NG/DL (0.76-1.46) Current Medications Medications (Trade) Dose Ordered Sig/Rima Route PRN Reason Start Time Stop Time Status Last Admin Dose Admin Acetaminophen (Tylenol) 650 mg Q6H PRN ORAL For Pain 04/07/20 01:00 05/07/20 00:59 Acetaminophen (Tylenol) 650 mg Q6H PRN ORAL Temp >100.5 04/07/20 01:00 05/07/20 00:59 Albuterol Sulfate (Proventil MDI) 2 puff Q4H PRN INH Shortness of Breath 04/08/20 02:00 07/07/20 01:59 Aspirin (Ecotrin) 81 mg DAILY ORAL 04/08/20 09:00 05/23/20 08:59 04/08/20 09:00 Dexamethasone Sodium Phosphate (Decadron 4mg/ml vial) 6 mg DAILY IVP 04/07/20 09:00 04/16/20 08:59 04/08/20 09:00 Furosemide (Lasix) 20 mg DAILY IV 04/07/20 09:00 05/07/20 08:59 04/08/20 09:00 Guaifenesin/ Dextromethorphan (Robitussin DM Syrup) 10 ml Q6H PRN ORAL For Cough 04/07/20 20:15 07/06/20 20:14 04/07/20 21:27 Heparin Sodium (Porcine) (Heparin 5000 units/ml) 5,000 units EVERY 12 HOURS SUBQ 04/07/20 09:00 05/22/20 08:59 04/08/20 09:00 Metoprolol Tartrate (Lopressor) 25 mg Q12HR ORAL 04/07/20 21:00 07/06/20 20:59 04/08/20 09:00 Catia Oglesby MD Apr 08, 2020 11:34
[2020-04-08 12:00] VITALS: BP 133/94
--- NOTE | 2020-04-08 12:03 | Neurology Progress Note ---
Interim History Interim History Events: confused no acute events covering Dr. Edouard Objective Physical Exam Last Vital Signs Date Time Temp Pulse Resp B/P (MAP) Pulse Ox O2 Delivery O2 Flow Rate FiO2 04/08/20 09:00 90 126/82 04/08/20 08:39 Venturi Mask 15.0 04/08/20 04:00 97.5 20 94 Laboratory Tests Test 04/08/20 04:00 White Blood Count 9.7 K/UL (4.8-10.8) Red Blood Count 4.45 M/UL (4.70-6.10) L Hemoglobin 13.4 G/DL (14.2-18.0) L Hematocrit 41.7 % (42.0-52.0) L Mean Corpuscular Volume 94 FL (80-99) Mean Corpuscular Hemoglobin 30.2 PG (27.0-31.0) Mean Corpuscular Hemoglobin Concent 32.2 G/DL (32.0-36.0) Red Cell Distribution Width 15.6 % (11.6-14.8) H Platelet Count 220 K/UL (150-450) Mean Platelet Volume 7.4 FL (6.5-10.1) Neutrophils (%) (Auto) % (45.0-75.0) Lymphocytes (%) (Auto) % (20.0-45.0) Monocytes (%) (Auto) % (1.0-10.0) Eosinophils (%) (Auto) % (0.0-3.0) Basophils (%) (Auto) % (0.0-2.0) Erythrocyte Sedimentation Rate 44 MM/HR (0-20) H Prothrombin Time 12.0 SEC (9.30-11.50) H Prothromb Time International Ratio 1.1 (0.9-1.1) Activated Partial Thromboplast Time 26 SEC (23-33) Sodium Level 137 MMOL/L (136-145) Potassium Level 4.9 MMOL/L (3.5-5.1) Chloride Level 103 MMOL/L (98-107) Carbon Dioxide Level 30 MMOL/L (21-32) Anion Gap 4 mmol/L (5-15) L Blood Urea Nitrogen 28 mg/dL (7-18) H Creatinine 1.0 MG/DL (0.55-1.30) Estimat Glomerular Filtration Rate > 60 mL/min (>60) Glucose Level 139 MG/DL (74-106) H Lactic Acid Level 1.60 mmol/L (0.4-2.0) Calcium Level 8.1 MG/DL (8.5-10.1) L Phosphorus Level 3.9 MG/DL (2.5-4.9) Magnesium Level 2.2 MG/DL (1.8-2.4) Total Bilirubin 0.6 MG/DL (0.2-1.0) Aspartate Amino Transf (AST/SGOT) 109 U/L (15-37) H Alanine Aminotransferase (ALT/SGPT) 144 U/L (12-78) H Alkaline Phosphatase 114 U/L (46-116) Troponin I 0.042 ng/mL (0.000-0.056) C-Reactive Protein, Quantitative Pending Pro-B-Type Natriuretic Peptide 29636 pg/mL (0-125) H Total Protein 5.3 G/DL (6.4-8.2) L Albumin 1.9 G/DL (3.4-5.0) L Globulin 3.4 g/dL Albumin/Globulin Ratio 0.6 (1.0-2.7) L Amylase Level 70 U/L (25-115) Lipase 307 U/L (73-393) Thyroid Stimulating Hormone (TSH) 0.215 uiU/mL (0.358-3.740) Free Thyroxine 1.03 NG/DL (0.76-1.46) General: well developed Head: normocophalic Neck: no rigidity EENT: benign Neurologic Exam Objective General: well developed Head: normocophalic Neck: no rigidity EENT: benign Neuro: Objective nc at more alert, responsive, oriented x 2 non focal, diffuse weakness Impression/Recommendations Diagnostic Impression Assessment and Rec's: 1. Encephalopathy likely 2/2 Covid 19 --> non focal exam 2. Hypoxia- -> oxygen 3. COVID 19+++ PNA --> isolation ID rec's defer neuro imaging delirium precautions Gissel Quiroga NP Apr 08, 2020 12:03
--- NOTE | 2020-04-08 12:18 | Pulmonology Progress Note ---
Subjective ROS Limited/Unobtainable: No Constitutional: Reports: no symptoms; Denies: fever, chills HEENT: Repors: no symptoms Respiratory: Reports: dry cough, shortness of breath Cardiovascular: Reports: no symptoms Gastrointestinal/Abdominal: Reports: no symptoms, diarrhea; Denies: nausea, vomiting Genitourinary: Reports: no symptoms Musculoskeletal: Denies: pain Allergies: Coded Allergies: No Known Allergies (Unverified , 04/06/20) Objective Last 24 Hour Vital Signs Date Time Temp Pulse Resp B/P (MAP) Pulse Ox O2 Delivery O2 Flow Rate FiO2 04/08/20 09:00 90 126/82 04/08/20 08:39 Venturi Mask 15.0 04/08/20 04:00 90 04/08/20 04:00 97.5 92 20 126/82 (97) 94 04/08/20 00:00 97.4 91 22 136/94 (108) 96 04/08/20 00:00 108 04/07/20 21:22 101 148/90 04/07/20 21:00 Venturi Mask 15.0 04/07/20 20:00 96 04/07/20 20:00 97.5 19 148/90 (109) 95 04/07/20 16:00 104 04/07/20 16:00 97.5 23 145/92 (109) 100 Intake and Output 04/07/20 04/08/20 19:00 07:00 Intake Total 350 ml Output Total 650 ml Balance 350 ml -650 ml Intake Oral 350 ml Output Urine Total 650 ml # Voids 6 3 # Bowel Movements 1 1 Objective 04/08 saturating at 97% on 15L Venturi mask Microbiology Date/Time Source Procedure Growth Status 04/06/20 18:54 Nasopharynx SARS-CoV-2 RdRp Gene Assay - Final Complete 04/06/20 18:54 Blood Blood Culture - Preliminary NO GROWTH AFTER 24 HOURS Resulted 04/06/20 18:40 Blood Blood Culture - Preliminary NO GROWTH AFTER 24 HOURS Resulted Laboratory Tests 04/08/20 04:00: White Blood Count 9.7, Red Blood Count 4.45L, Hemoglobin 13.4L, Hematocrit 41.7L , Mean Corpuscular Volume 94, Mean Corpuscular Hemoglobin 30.2, Mean Corpuscular Hemoglobin Concent 32.2, Red Cell Distribution Width 15.6H, Platelet Count 220, Mean Platelet Volume 7.4, Neutrophils (%) (Auto) , Lymphocytes (%) (Auto) , Mon ocytes (%) (Auto) , Eosinophils (%) (Auto) , Basophils (%) (Auto) , Erythrocyte Sedimentation Rate 44H, Prothrombin Time 12.0H, Prothromb Time International Ratio 1.1, Activated Partial Thromboplast Time 26, Sodium Level 137, Potassium Level 4.9, Chloride Level 103, Carbon Dioxide Level 30, Anion Gap 4L, Blood Urea Nitrogen 28H, Creatinine 1.0, Estimat Glomerular Filtration Rate > 60, Glucose Level 139H, Lactic Acid Level 1.60, Calcium Level 8.1L, Phosphorus Level 3.9, Magnesium Level 2.2, Total Bilirubin 0.6, Aspartate Amino Transf (AST/SGOT) 109H , Alanine Aminotransferase (ALT/SGPT) 144H, Alkaline Phosphatase 114, Troponin I 0.042, C-Reactive Protein, Quantitative [Pending], Pro-B-Type Natriuretic Peptide [id number], Total Protein 5.3L, Albumin 1.9L, Globulin 3.4, Albumin/Globulin Ratio 0.6L, Amylase Level 70, Lipase 307, Thyroid Stimulating Hormone (TSH) 0.215L, Free Thyroxine 1.03 Current Medications Medications (Trade) Dose Ordered Sig/Rima Route PRN Reason Start Time Stop Time Status Last Admin Dose Admin Acetaminophen (Tylenol) 650 mg Q6H PRN ORAL For Pain 04/07/20 01:00 05/07/20 00:59 Acetaminophen (Tylenol) 650 mg Q6H PRN ORAL Temp >100.5 04/07/20 01:00 05/07/20 00:59 Albuterol Sulfate (Proventil MDI) 2 puff Q4H PRN INH Shortness of Breath 04/08/20 02:00 07/07/20 01:59 Aspirin (Ecotrin) 81 mg DAILY ORAL 04/08/20 09:00 05/23/20 08:59 04/08/20 09:00 Dexamethasone Sodium Phosphate (Decadron 4mg/ml vial) 6 mg DAILY IVP 04/07/20 09:00 04/16/20 08:59 04/08/20 09:00 Furosemide (Lasix) 20 mg DAILY IV 04/07/20 09:00 05/07/20 08:59 04/08/20 09:00 Guaifenesin/ Dextromethorphan (Robitussin DM Syrup) 10 ml Q6H PRN ORAL For Cough 04/07/20 20:15 07/06/20 20:14 04/07/20 21:27 Heparin Sodium (Porcine) (Heparin 5000 units/ml) 5,000 units EVERY 12 HOURS SUBQ 04/07/20 09:00 05/22/20 08:59 04/08/20 09:00 Metoprolol Tartrate (Lopressor) 25 mg Q12HR ORAL 04/07/20 21:00 07/06/20 20:59 04/08/20 09:00 Remdesivir 100 mg/ Sodium Chloride 250 ml @ 250 mls/hr Q24H IV 04/09/20 15:00 04/12/20 15:59 Remdesivir 200 mg/ Sodium Chloride 250 ml @ 125 mls/hr ONCE IV 04/08/20 15:00 04/08/20 16:59 Assessment/Plan Assessment/Plan 1. Hyperglycemia -Monitor BG -Of note, he is on Decadron 2. Leg edema -Patient is on Lasix -Venous duplex ultrasound of LE negative for DVT - 2D echo LV EF 20-25% - management per cardio 3. COVID-19 pneumonia with respiratory distress - On dexamethasone (04/07-) - On remdesivir (04/08-) - s/p broad spectrum Abx in ER - Currently saturating at 97% on 15L Venturi mask; will titrate down - Continue providing supplemental oxygen and wean as tolerated 4. DVT prophylaxis -On heparin 5. Respiratory alkalosis -Continue supplemental oxygen -Monitor ABG 6. ?UTI - per primary MD, and ID 7. Elevated LFTs - elevated but trending down - Abd US result pending The care for this patient was discussed with my supervising physician. Time spent for this case was approximately 31 minutes. Javan Wren Apr 08, 2020 12:18
--- NOTE | 2020-04-08 12:54 | Cardiology Report ---
APPROVED REPORT EKG Measurement Heart [id number] ND [id number] <Conclusion> Sinus rhythm with frequent premature ventricular complexes Possible Left atrial enlargement Left anterior fascicular block Nonspecific ST abnormality Prolonged QT Abnormal ECG
--- NOTE | 2020-04-08 12:58 | Cardiology Report ---
APPROVED REPORT EKG Measurement Heart [id number] AL [id number] <Conclusion> Sinus tachycardia with occasional premature ventricular complexes Possible Left atrial enlargement Left anterior fascicular block Septal infarct, age undetermined Abnormal ECG
--- NOTE | 2020-04-08 13:06 | Diagnostic Imaging Report ---
Indication: Abnormal liver function tests, abnormal renal function tests Technique: Cowan-scale and duplex images of the upper abdomen were obtained Comparison: none Findings: Gallbladder is unremarkable, without stones, wall thickening, nor pericholecystic fluid. Sonographic Sandoval's sign is negative. Common bile duct measures 5 mm in diameter. No intrahepatic biliary ductal dilatation. Liver demonstrates normal echogenicity, no focal abnormality. Portal vein and hepatic veins are patent. Pancreas is incompletely visualized due to overlying bowel gas, visualized portions are unremarkable. Spleen is unremarkable. Left kidney measures 10.2 cm in length. Right kidney measures 10.9 cm length. Both kidneys demonstrate normal echogenicity. There is no hydronephrosis. No focal abnormality . Unremarkable inferior vena cava. Abdominal aorta is partially obscured by bowel gas, visualized portions are non-aneurysmal . Impression: Essentially unremarkable exam. Negative for gallstones, dilated bile ducts, or other significant finding Incompletely visualized pancreas and abdominal aorta
[2020-04-08] MEDS ORDERED: Loading Dose:Remdesivir 200mg/NS 210ml IV SCH ×2 (15:00)
--- NOTE | 2020-04-08 15:01 | Cardiac Electrophysiology PN ---
Assessment/Plan Assessment/Plan 1. Non-ST elevation myocardial infarction with troponin of 0.076. It could be myocarditis due to the patient's COVID. The patient does not have renal failure and the creatinine is 1.2. 2. Congestive heart failure with BNP of more than 12,000. Echo EF 20-25% and severe MR and TR Increase Lasix to 40 iv bid. Add lisinopril and aldactone to metoprolol 3. Elevated troponin. The patient is already on aspirin 81 mg daily and metoprolol 25 mg b.i.d. 4. Frequent PVCs. Due to EF 20% Continue metoprolol 25 mg b.i.d. 5. COVID-19 pneumonia, on dexamethasone and 15 liter VM Subjective Subjective Has frequent PVCs and couplets on 15 liter VM Objective Last 24 Hour Vital Signs Date Time Temp Pulse Resp B/P (MAP) Pulse Ox O2 Delivery O2 Flow Rate FiO2 04/08/20 09:00 90 126/82 04/08/20 08:39 Venturi Mask 15.0 04/08/20 04:00 90 04/08/20 04:00 97.5 92 20 126/82 (97) 94 04/08/20 00:00 97.4 91 22 136/94 (108) 96 04/08/20 00:00 108 04/07/20 21:22 101 148/90 04/07/20 21:00 Venturi Mask 15.0 04/07/20 20:00 96 04/07/20 20:00 97.5 19 148/90 (109) 95 04/07/20 16:00 104 04/07/20 16:00 97.5 23 145/92 (109) 100 Intake and Output 04/07/20 04/08/20 19:00 07:00 Intake Total 350 ml Output Total 650 ml Balance 350 ml -650 ml Intake Oral 350 ml Output Urine Total 650 ml # Voids 6 3 # Bowel Movements 1 1 Laboratory Tests Test 04/08/20 04:00 White Blood Count 9.7 K/UL (4.8-10.8) Red Blood Count 4.45 M/UL (4.70-6.10) L Hemoglobin 13.4 G/DL (14.2-18.0) L Hematocrit 41.7 % (42.0-52.0) L Mean Corpuscular Volume 94 FL (80-99) Mean Corpuscular Hemoglobin 30.2 PG (27.0-31.0) Mean Corpuscular Hemoglobin Concent 32.2 G/DL (32.0-36.0) Red Cell Distribution Width 15.6 % (11.6-14.8) H Platelet Count 220 K/UL (150-450) Mean Platelet Volume 7.4 FL (6.5-10.1) Neutrophils (%) (Auto) % (45.0-75.0) Lymphocytes (%) (Auto) % (20.0-45.0) Monocytes (%) (Auto) % (1.0-10.0) Eosinophils (%) (Auto) % (0.0-3.0) Basophils (%) (Auto) % (0.0-2.0) Erythrocyte Sedimentation Rate 44 MM/HR (0-20) H Prothrombin Time 12.0 SEC (9.30-11.50) H Prothromb Time International Ratio 1.1 (0.9-1.1) Activated Partial Thromboplast Time 26 SEC (23-33) Sodium Level 137 MMOL/L (136-145) Potassium Level 4.9 MMOL/L (3.5-5.1) Chloride Level 103 MMOL/L (98-107) Carbon Dioxide Level 30 MMOL/L (21-32) Anion Gap 4 mmol/L (5-15) L Blood Urea Nitrogen 28 mg/dL (7-18) H Creatinine 1.0 MG/DL (0.55-1.30) Estimat Glomerular Filtration Rate > 60 mL/min (>60) Glucose Level 139 MG/DL (74-106) H Lactic Acid Level 1.60 mmol/L (0.4-2.0) Calcium Level 8.1 MG/DL (8.5-10.1) L Phosphorus Level 3.9 MG/DL (2.5-4.9) Magnesium Level 2.2 MG/DL (1.8-2.4) Total Bilirubin 0.6 MG/DL (0.2-1.0) Aspartate Amino Transf (AST/SGOT) 109 U/L (15-37) H Alanine Aminotransferase (ALT/SGPT) 144 U/L (12-78) H Alkaline Phosphatase 114 U/L (46-116) Troponin I 0.042 ng/mL (0.000-0.056) C-Reactive Protein, Quantitative Pending Pro-B-Type Natriuretic Peptide 96741 pg/mL (0-125) H Total Protein 5.3 G/DL (6.4-8.2) L Albumin 1.9 G/DL (3.4-5.0) L Globulin 3.4 g/dL Albumin/Globulin Ratio 0.6 (1.0-2.7) L Amylase Level 70 U/L (25-115) Lipase 307 U/L (73-393) Thyroid Stimulating Hormone (TSH) 0.215 uiU/mL (0.358-3.740) Free Thyroxine 1.03 NG/DL (0.76-1.46) Microbiology Date/Time Source Procedure Growth Status 04/06/20 18:54 Nasopharynx SARS-CoV-2 RdRp Gene Assay - Final Complete 04/06/20 18:54 Blood Blood Culture - Preliminary NO GROWTH AFTER 24 HOURS Resulted 04/06/20 18:40 Blood Blood Culture - Preliminary NO GROWTH AFTER 24 HOURS Resulted Objective HEAD AND NECK: mild JVD. LUNGS: Decreased breath sounds. CARDIOVASCULAR: regular S1 and S2 with no gallop. ABDOMEN: Soft. EXTREMITIES: 1+ pitting edema. Tutu Farah MD Apr 08, 2020 15:01
[2020-04-08] MEDS ORDERED: Carvedilol 6.25mg Tab ORAL SCH (15:15)
--- NOTE | 2020-04-08 15:29 | Internal Med Progress Note ---
Subjective Physician Name Didier Magallon Attending Physician Didier Magallon M.D. Current Medications Medications (Trade) Dose Ordered Sig/Rima Route PRN Reason Start Time Stop Time Status Last Admin Dose Admin Acetaminophen (Tylenol) 650 mg Q6H PRN ORAL For Pain 04/07/20 01:00 05/07/20 00:59 Acetaminophen (Tylenol) 650 mg Q6H PRN ORAL Temp >100.5 04/07/20 01:00 05/07/20 00:59 Albuterol Sulfate (Proventil MDI) 2 puff Q4H PRN INH Shortness of Breath 04/08/20 02:00 07/07/20 01:59 Aspirin (Ecotrin) 81 mg DAILY ORAL 04/08/20 09:00 05/23/20 08:59 04/08/20 09:00 Carvedilol (Coreg) 6.25 mg ONCE ORAL 04/08/20 15:15 04/08/20 18:00 04/08/20 15:18 Dexamethasone Sodium Phosphate (Decadron 4mg/ml vial) 6 mg DAILY IVP 04/07/20 09:00 04/16/20 08:59 04/08/20 09:00 Furosemide (Lasix) 40 mg BID IV 04/08/20 15:05 05/08/20 15:04 04/08/20 15:18 Guaifenesin/ Dextromethorphan (Robitussin DM Syrup) 10 ml Q6H PRN ORAL For Cough 04/07/20 20:15 07/06/20 20:14 04/07/20 21:27 Heparin Sodium (Porcine) (Heparin 5000 units/ml) 5,000 units EVERY 12 HOURS SUBQ 04/07/20 09:00 05/22/20 08:59 04/08/20 09:00 Lisinopril (ZestriL) 10 mg DAILY ORAL 04/09/20 09:00 05/09/20 08:59 Remdesivir 100 mg/ Sodium Chloride 250 ml @ 250 mls/hr Q24H IV 04/09/20 15:00 04/12/20 15:59 Remdesivir 200 mg/ Sodium Chloride 250 ml @ 125 mls/hr ONCE IV 04/08/20 15:00 04/08/20 16:59 04/08/20 15:12 Spironolactone (Aldactone) 25 mg DAILY ORAL 04/09/20 09:00 05/09/20 08:59 Allergies: Coded Allergies: No Known Allergies (Unverified , 04/06/20) ROS Limited/Unobtainable: No Constitutional: Reports: weakness HEENT: Denies: no symptoms, eye pain, blurred vision, tearing, double vision, ear pain, ear discharge, nose pain, nose congestion, throat pain, throat swelling, mouth pain, mouth swelling, other Cardiovascular: Denies: no symptoms, chest pain, edema, irregular heart rate, lightheadedness, palpitations, syncope, other Gastrointestinal/Abdominal: Denies: no symptoms, abdomen distended, abdominal pain, black stools, tarry stools, blood in stool, constipated, diarrhea, difficulty swallowing, nausea, poor appetite, poor fluid intake, rectal bleeding, vomiting, other Genitourinary: Denies: no symptoms, burning, discharge, frequency, flank pain, hematuria, incontinence, pain, urgency, other Neurologic/Psychiatric: Denies: no symptoms, anxiety, depressed, emotional problems, headache, numbness, paresthesia, pre-existing deficit, seizure, t ingling, tremors, weakness, other Subjective on venturi mask Objective Last Vital Signs Date Time Temp Pulse Resp B/P (MAP) Pulse Ox O2 Delivery O2 Flow Rate FiO2 04/08/20 15:18 115 126/82 04/08/20 08:39 Venturi Mask 15.0 04/08/20 04:00 97.5 20 94 Laboratory Tests Test 04/08/20 04:00 White Blood Count 9.7 K/UL (4.8-10.8) Red Blood Count 4.45 M/UL (4.70-6.10) L Hemoglobin 13.4 G/DL (14.2-18.0) L Hematocrit 41.7 % (42.0-52.0) L Mean Corpuscular Volume 94 FL (80-99) Mean Corpuscular Hemoglobin 30.2 PG (27.0-31.0) Mean Corpuscular Hemoglobin Concent 32.2 G/DL (32.0-36.0) Red Cell Distribution Width 15.6 % (11.6-14.8) H Platelet Count 220 K/UL (150-450) Mean Platelet Volume 7.4 FL (6.5-10.1) Neutrophils (%) (Auto) % (45.0-75.0) Lymphocytes (%) (Auto) % (20.0-45.0) Monocytes (%) (Auto) % (1.0-10.0) Eosinophils (%) (Auto) % (0.0-3.0) Basophils (%) (Auto) % (0.0-2.0) Erythrocyte Sedimentation Rate 44 MM/HR (0-20) H Prothrombin Time 12.0 SEC (9.30-11.50) H Prothromb Time International Ratio 1.1 (0.9-1.1) Activated Partial Thromboplast Time 26 SEC (23-33) Sodium Level 137 MMOL/L (136-145) Potassium Level 4.9 MMOL/L (3.5-5.1) Chloride Level 103 MMOL/L (98-107) Carbon Dioxide Level 30 MMOL/L (21-32) Anion Gap 4 mmol/L (5-15) L Blood Urea Nitrogen 28 mg/dL (7-18) H Creatinine 1.0 MG/DL (0.55-1.30) Estimat Glomerular Filtration Rate > 60 mL/min (>60) Glucose Level 139 MG/DL (74-106) H Lactic Acid Level 1.60 mmol/L (0.4-2.0) Calcium Level 8.1 MG/DL (8.5-10.1) L Phosphorus Level 3.9 MG/DL (2.5-4.9) Magnesium Level 2.2 MG/DL (1.8-2.4) Total Bilirubin 0.6 MG/DL (0.2-1.0) Aspartate Amino Transf (AST/SGOT) 109 U/L (15-37) H Alanine Aminotransferase (ALT/SGPT) 144 U/L (12-78) H Alkaline Phosphatase 114 U/L (46-116) Troponin I 0.042 ng/mL (0.000-0.056) C-Reactive Protein, Quantitative Pending Pro-B-Type Natriuretic Peptide 30949 pg/mL (0-125) H Total Protein 5.3 G/DL (6.4-8.2) L Albumin 1.9 G/DL (3.4-5.0) L Globulin 3.4 g/dL Albumin/Globulin Ratio 0.6 (1.0-2.7) L Amylase Level 70 U/L (25-115) Lipase 307 U/L (73-393) Thyroid Stimulating Hormone (TSH) 0.215 uiU/mL (0.358-3.740) Free Thyroxine 1.03 NG/DL (0.76-1.46) Microbiology Date/Time Source Procedure Growth Status 04/06/20 18:54 Nasopharynx SARS-CoV-2 RdRp Gene Assay - Final Complete 04/06/20 18:54 Blood Blood Culture - Preliminary NO GROWTH AFTER 24 HOURS Resulted 04/06/20 18:40 Blood Blood Culture - Preliminary NO GROWTH AFTER 24 HOURS Resulted Intake and Output 04/07/20 04/08/20 19:00 07:00 Intake Total 350 ml Output Total 650 ml Balance 350 ml -650 ml Intake Oral 350 ml Output Urine Total 650 ml # Voids 6 3 # Bowel Movements 1 1 Objective General appearance: alert, cooperative, no distress, appears stated age Head: Normocephalic, without obvious abnormality, atraumatic Eyes: conjunctivae/corneas clear. PERRL, EOM's intact. Fundi benign Throat: Lips, mucosa, and tongue normal. Teeth and gums normal Neck: supple, symmetrical, trachea midline, no adenopathy, thyroid: not enlarged, symmetric, no tenderness/mass/nodules, no carotid bruit and no JVD Lungs: + rhonchi bilaterally Heart: regular rate and rhythm, S1, S2 normal, no murmur, click, rub or gallop Abdomen: soft, non-tender. Bowel sounds normal. No masses, no organomegaly Extremities: 1+ pedal edema Pulses: 2+ and symmetric Skin: Skin color, texture, turgor normal. No rashes or lesions Neurologic: Grossly normal Assessment/Plan Assessment/Plan #COVID infection #elevated trop #LE edema #Elevated BNP #elevated lipase - admit tele - ID eval - pulm eval - cardiology eval - 2d echo - LE duplex - dexamethasone - monitor lytes - abd US - lasix 20 IV daily - metop 25 BID - aspirin 81mg daily Didier Magallon M.D. Apr 08, 2020 15:29
[2020-04-08 16:00] VITALS: BP 131/94
[2020-04-08 20:00] VITALS: BP 131/93
[2020-04-09] VITALS: BP 126/89
[2020-04-09 04:00] VITALS: BP 121/87
[2020-04-09 06:09] LABS: HEMOGLOBIN 12.6 G/DL (14.2-18.0); MEAN CORPUSCULAR VOLUME 92 FL (80-99); PLATELET COUNT 209 K/UL (150-450); RED BLOOD COUNT 4.23 M/UL (4.70-6.10); RED CELL DISTRIBUTION WIDTH 15.8 % (11.6-14.8); WHITE BLOOD COUNT 8.7 K/UL (4.8-10.8)
[2020-04-09 06:26] LABS: ALANINE AMINOTRANSFERASE 117 U/L (12-78); ALBUMIN 1.9 G/DL (3.4-5.0); ALBUMIN/GLOBULIN RATIO 0.5 (1.0-2.7); ALKALINE PHOSPHATASE 99 U/L (46-116); ANION GAP 6 mmol/L (5-15); ASPARTATE AMINO TRANSFERASE 67 U/L (15-37); BILIRUBIN,TOTAL 0.6 MG/DL (0.2-1.0); BLOOD UREA NITROGEN 32 mg/dL (7-18); CALCIUM 7.9 MG/DL (8.5-10.1); CARBON DIOXIDE 30 MMOL/L (21-32); CHLORIDE 102 MMOL/L (98-107); CREATININE 0.9 MG/DL (0.55-1.30); PHOSPHORUS 4.4 MG/DL (2.5-4.9); POTASSIUM 3.9 MMOL/L (3.5-5.1); SODIUM 138 MMOL/L (136-145)
[2020-04-09 08:00] VITALS: BP 132/89
[2020-04-09] MEDS: Spironolactone 25mg tab ORAL SCH (09:00)
[2020-04-09] MEDS: Aspirin EC 81mg tab ORAL SCH (09:00)
[2020-04-09] MEDS: Lisinopril 10mg tab ORAL SCH (09:02)
[2020-04-09] MEDS: Heparin 5000 units/ml inj SUBQ SCH ×2 (09:03→21:45)
--- NOTE | 2020-04-09 10:06 | Pulmonology Progress Note ---
Subjective ROS Limited/Unobtainable: No Interval Events: None new Constitutional: Reports: no symptoms; Denies: fever, chills HEENT: Repors: no symptoms Respiratory: Reports: dry cough, shortness of breath Cardiovascular: Reports: no symptoms Gastrointestinal/Abdominal: Reports: no symptoms, diarrhea; Denies: nausea, vomiting Genitourinary: Reports: no symptoms Musculoskeletal: Denies: pain Allergies: Coded Allergies: No Known Allergies (Unverified , 04/06/20) Objective Last 24 Hour Vital Signs Date Time Temp Pulse Resp B/P (MAP) Pulse Ox O2 Delivery O2 Flow Rate FiO2 04/09/20 09:02 123/87 04/09/20 08:00 97.2 75 18 132/89 (103) 100 04/09/20 04:00 96.8 69 20 121/87 (98) 100 04/09/20 04:00 66 04/09/20 00:00 81 04/09/20 00:00 96.8 79 20 126/89 (101) 94 04/08/20 22:31 94 Venturi Mask 14.0 55 04/08/20 21:00 Venturi Mask 15.0 04/08/20 20:00 97.5 80 20 131/93 (106) 95 04/08/20 20:00 90 04/08/20 16:00 88 04/08/20 16:00 97.8 88 22 131/94 (106) 97 04/08/20 15:18 115 126/82 04/08/20 12:00 90 04/08/20 12:00 97.4 92 20 133/94 (107) 96 Intake and Output 04/08/20 04/09/20 19:00 07:00 Intake Total 240 ml 500 ml Output Total 2500 ml 300 ml Balance -2260 ml 200 ml Intake Oral 240 ml 500 ml Output Urine Total 2500 ml 300 ml General Appearance: no acute distress HEENT: normocephalic Respiratory: chest wall non-tender, lungs clear Cardiovascular: normal peripheral pulses Abdomen: normal bowel sounds Microbiology Date/Time Source Procedure Growth Status 04/06/20 18:54 Nasopharynx SARS-CoV-2 RdRp Gene Assay - Final Complete 04/06/20 18:54 Blood Blood Culture - Preliminary NO GROWTH AFTER 24 HOURS Resulted 04/06/20 18:40 Blood Blood Culture - Preliminary NO GROWTH AFTER 24 HOURS Resulted Laboratory Tests 04/09/20 05:09: White Blood Count 8.7, Red Blood Count 4.23L, Hemoglobin 12.6L, Hematocrit 39.0L , Mean Corpuscular Volume 92, Mean Corpuscular Hemoglobin 29.8, Mean Corpuscular Hemoglobin Concent 32.3, Red Cell Distribution Width 15.8H, Platelet Count 209, Mean Platelet Volume 7.4, Neutrophils (%) (Auto) , Lymphocytes (%) (Auto) , Monocytes (%) (Auto) , Eosinophils (%) (Auto) , Basophils (%) (Auto) , Differential Total Cells Counted 100, Neutrophils % (Manual) 88H, Lymphocytes % (Manual) 7L, Monocytes % (Manual) 5, Eosinophils % (Manual) 0, Basophils % (Manual) 0, Band Neutrophils 0, Platelet Estimate Adequate, Platelet Morphology Normal, Anisocytosis 1+, Sodium Level 138, Potassium Level 3.9, Chloride Level 102, Carbon Dioxide Level 30, Anion Gap 6, Blood Urea Nitrogen 32H, Creatinine 0.9, Estimat Glomerular Filtration Rate > 60, Glucose Level 107H, Calcium Level 7.9L, Phosphorus Level 4.4, Magnesium Level 2.0, Total Bilirubin 0.6, Direct Bilirubin 0.3, Aspartate Amino Transf (AST/SGOT) 67H, Alanine Aminotransferase (ALT/SGPT) 117H, Alkaline Phosphatase 99, Total Protein 5.5L, Albumin 1.9L, Globulin 3.6, Albumin/Globulin Ratio 0.5L Current Medications Medications (Trade) Dose Ordered Sig/Rima Route PRN Reason Start Time Stop Time Status Last Admin Dose Admin Acetaminophen (Tylenol) 650 mg Q6H PRN ORAL For Pain 04/07/20 01:00 05/07/20 00:59 Acetaminophen (Tylenol) 650 mg Q6H PRN ORAL Temp >100.5 04/07/20 01:00 05/07/20 00:59 Albuterol Sulfate (Proventil MDI) 2 puff Q4H PRN INH Shortness of Breath 04/08/20 02:00 07/07/20 01:59 Aspirin (Ecotrin) 81 mg DAILY ORAL 04/08/20 09:00 05/23/20 08:59 04/09/20 09:00 Dexamethasone Sodium Phosphate (Decadron 4mg/ml vial) 6 mg DAILY IVP 04/07/20 09:00 04/16/20 08:59 04/09/20 09:00 Furosemide (Lasix) 40 mg BID IV 04/08/20 15:05 05/08/20 15:04 04/09/20 09:00 Guaifenesin/ Dextromethorphan (Robitussin DM Syrup) 10 ml Q6H PRN ORAL For Cough 04/07/20 20:15 07/06/20 20:14 04/07/20 21:27 Heparin Sodium (Porcine) (Heparin 5000 units/ml) 5,000 units EVERY 12 HOURS SUBQ 04/07/20 09:00 05/22/20 08:59 04/09/20 09:03 Lisinopril (ZestriL) 10 mg DAILY ORAL 04/09/20 09:00 05/09/20 08:59 04/09/20 09:02 Remdesivir 100 mg/ Sodium Chloride 250 ml @ 250 mls/hr Q24H IV 04/09/20 15:00 04/12/20 15:59 Spironolactone (Aldactone) 25 mg DAILY ORAL 04/09/20 09:00 05/09/20 08:59 04/09/20 09:00 Assessment/Plan Assessment/Plan Assessment/Plan 1. Hyperglycemia -Monitor BG -Of note, he is on Decadron 2. Leg edema -Patient is on Lasix -Venous duplex ultrasound of LE negative for DVT - 2D echo LV EF 20-25% - management per cardio 3. COVID-19 pneumonia with respiratory distress - On dexamethasone (04/07-) - On remdesivir (04/08-) - s/p broad spectrum Abx in ER - Currently saturating at 100% on 15L Venturi mask; will titrate down - Continue providing supplemental oxygen and wean as tolerated 4. DVT prophylaxis -On heparin 5. Respiratory alkalosis -Continue supplemental oxygen -Monitor ABG 6. Elevated LFTs - elevated but trending down - Abd US result; unremarkable exam. Negative for gallstones, dilated bile ducts, or other significant finding The care for this patient was discussed with supervising physician. James Robles NP Apr 09, 2020 10:06 Chan Lucio MD Apr 09, 2020 15:08
--- NOTE | 2020-04-09 11:35 | Infectious Diseases Prog Note ---
Assessment/Plan Assessment/Plan A 1. COVID19 pneumonia 2. increased LFT 3. CHF, EF=20-25% 4. Mitral & Tricuspid regurgitation P 1. Continue remdesivir 2. continue dexamethasone day 4 3. continue isolation Subjective ROS Limited/Unobtainable: No Constitutional: Reports: other - feels better Respiratory: Reports: shortness of breath; Denies: dry cough, productive cough Cardiovascular: Reports: dyspnea on exertion Gastrointestinal/Abdominal: Reports: no symptoms Genitourinary: Reports: no symptoms Allergies: Coded Allergies: No Known Allergies (Unverified , 04/06/20) Objective Last 24 Hour Vital Signs Date Time Temp Pulse Resp B/P (MAP) Pulse Ox O2 Delivery O2 Flow Rate FiO2 04/09/20 09:02 123/87 04/09/20 08:00 97.2 75 18 132/89 (103) 100 04/09/20 04:00 96.8 69 20 121/87 (98) 100 04/09/20 04:00 66 04/09/20 00:00 81 04/09/20 00:00 96.8 79 20 126/89 (101) 94 04/08/20 22:31 94 Venturi Mask 14.0 55 04/08/20 21:00 Venturi Mask 15.0 04/08/20 20:00 97.5 80 20 131/93 (106) 95 04/08/20 20:00 90 04/08/20 16:00 88 04/08/20 16:00 97.8 88 22 131/94 (106) 97 04/08/20 15:18 115 126/82 04/08/20 12:00 90 04/08/20 12:00 97.4 92 20 133/94 (107) 96 Height (Feet): 6 Height (Inches): 0.00 Weight (Pounds): 200 General Appearance: no acute distress HEENT: mucous membranes moist Respiratory/Chest: other Cardiovascular: normal rate Abdomen: soft, non tender Extremities: other - legs edema Neurologic/Psychiatric: alert, responsive Microbiology Date/Time Source Procedure Growth Status 04/06/20 18:54 Nasopharynx SARS-CoV-2 RdRp Gene Assay - Final Complete 04/06/20 18:54 Blood Blood Culture - Preliminary NO GROWTH AFTER 24 HOURS Resulted 04/06/20 18:40 Blood Blood Culture - Preliminary NO GROWTH AFTER 24 HOURS Resulted Laboratory Tests Test 04/09/20 05:09 White Blood Count 8.7 K/UL (4.8-10.8) Red Blood Count 4.23 M/UL (4.70-6.10) L Hemoglobin 12.6 G/DL (14.2-18.0) L Hematocrit 39.0 % (42.0-52.0) L Mean Corpuscular Volume 92 FL (80-99) Mean Corpuscular Hemoglobin 29.8 PG (27.0-31.0) Mean Corpuscular Hemoglobin Concent 32.3 G/DL (32.0-36.0) Red Cell Distribution Width 15.8 % (11.6-14.8) H Platelet Count 209 K/UL (150-450) Mean Platelet Volume 7.4 FL (6.5-10.1) Neutrophils (%) (Auto) % (45.0-75.0) Lymphocytes (%) (Auto) % (20.0-45.0) Monocytes (%) (Auto) % (1.0-10.0) Eosinophils (%) (Auto) % (0.0-3.0) Basophils (%) (Auto) % (0.0-2.0) Differential Total Cells Counted 100 Neutrophils % (Manual) 88 % (45-75) H Lymphocytes % (Manual) 7 % (20-45) L Monocytes % (Manual) 5 % (1-10) Eosinophils % (Manual) 0 % (0-3) Basophils % (Manual) 0 % (0-2) Band Neutrophils 0 % (0-8) Platelet Estimate Adequate Platelet Morphology Normal Anisocytosis 1+ Sodium Level 138 MMOL/L (136-145) Potassium Level 3.9 MMOL/L (3.5-5.1) Chloride Level 102 MMOL/L (98-107) Carbon Dioxide Level 30 MMOL/L (21-32) Anion Gap 6 mmol/L (5-15) Blood Urea Nitrogen 32 mg/dL (7-18) H Creatinine 0.9 MG/DL (0.55-1.30) Estimat Glomerular Filtration Rate > 60 mL/min (>60) Glucose Level 107 MG/DL (74-106) H Calcium Level 7.9 MG/DL (8.5-10.1) L Phosphorus Level 4.4 MG/DL (2.5-4.9) Magnesium Level 2.0 MG/DL (1.8-2.4) Total Bilirubin 0.6 MG/DL (0.2-1.0) Direct Bilirubin 0.3 MG/DL (0.0-0.3) Aspartate Amino Transf (AST/SGOT) 67 U/L (15-37) H Alanine Aminotransferase (ALT/SGPT) 117 U/L (12-78) H Alkaline Phosphatase 99 U/L (46-116) Total Protein 5.5 G/DL (6.4-8.2) L Albumin 1.9 G/DL (3.4-5.0) L Globulin 3.6 g/dL Albumin/Globulin Ratio 0.5 (1.0-2.7) L Current Medications Medications (Trade) Dose Ordered Sig/Rima Route PRN Reason Start Time Stop Time Status Last Admin Dose Admin Acetaminophen (Tylenol) 650 mg Q6H PRN ORAL For Pain 04/07/20 01:00 05/07/20 00:59 Acetaminophen (Tylenol) 650 mg Q6H PRN ORAL Temp >100.5 04/07/20 01:00 05/07/20 00:59 Albuterol Sulfate (Proventil MDI) 2 puff Q4H PRN INH Shortness of Breath 04/08/20 02:00 07/07/20 01:59 Aspirin (Ecotrin) 81 mg DAILY ORAL 04/08/20 09:00 05/23/20 08:59 04/09/20 09:00 Dexamethasone Sodium Phosphate (Decadron 4mg/ml vial) 6 mg DAILY IVP 04/07/20 09:00 04/16/20 08:59 04/09/20 09:00 Furosemide (Lasix) 40 mg BID IV 04/08/20 15:05 05/08/20 15:04 04/09/20 09:00 Guaifenesin/ Dextromethorphan (Robitussin DM Syrup) 10 ml Q6H PRN ORAL For Cough 04/07/20 20:15 07/06/20 20:14 04/07/20 21:27 Heparin Sodium (Porcine) (Heparin 5000 units/ml) 5,000 units EVERY 12 HOURS SUBQ 04/07/20 09:00 05/22/20 08:59 04/09/20 09:03 Lisinopril (ZestriL) 10 mg DAILY ORAL 04/09/20 09:00 05/09/20 08:59 04/09/20 09:02 Remdesivir 100 mg/ Sodium Chloride 250 ml @ 250 mls/hr Q24H IV 04/09/20 15:00 04/12/20 15:59 Spironolactone (Aldactone) 25 mg DAILY ORAL 04/09/20 09:00 05/09/20 08:59 04/09/20 09:00 Hernan Greene MD Apr 09, 2020 11:35
--- NOTE | 2020-04-09 11:54 | Surgery Progress Note ---
Surgery Progress Note Subjective Additional Comments doing well comfortable no n/v Objective Last 24 Hour Vital Signs Date Time Temp Pulse Resp B/P (MAP) Pulse Ox O2 Delivery O2 Flow Rate FiO2 04/09/20 09:02 123/87 04/09/20 08:00 97.2 75 18 132/89 (103) 100 04/09/20 04:00 96.8 69 20 121/87 (98) 100 04/09/20 04:00 66 04/09/20 00:00 81 04/09/20 00:00 96.8 79 20 126/89 (101) 94 04/08/20 22:31 94 Venturi Mask 14.0 55 04/08/20 21:00 Venturi Mask 15.0 04/08/20 20:00 97.5 80 20 131/93 (106) 95 04/08/20 20:00 90 04/08/20 16:00 88 04/08/20 16:00 97.8 88 22 131/94 (106) 97 04/08/20 15:18 115 126/82 04/08/20 12:00 90 04/08/20 12:00 97.4 92 20 133/94 (107) 96 I&O Intake and Output 04/08/20 04/09/20 19:00 07:00 Intake Total 240 ml 500 ml Output Total 2500 ml 300 ml Balance -2260 ml 200 ml Intake Oral 240 ml 500 ml Output Urine Total 2500 ml 300 ml Cardiovascular: RSR Respiratory: clear Abdomen: soft, non-tender, present bowel sounds, non-distended Extremities: no edema, no tenderness, no cyanosis Laboratory Tests Test 04/09/20 05:09 White Blood Count 8.7 K/UL (4.8-10.8) Red Blood Count 4.23 M/UL (4.70-6.10) L Hemoglobin 12.6 G/DL (14.2-18.0) L Hematocrit 39.0 % (42.0-52.0) L Mean Corpuscular Volume 92 FL (80-99) Mean Corpuscular Hemoglobin 29.8 PG (27.0-31.0) Mean Corpuscular Hemoglobin Concent 32.3 G/DL (32.0-36.0) Red Cell Distribution Width 15.8 % (11.6-14.8) H Platelet Count 209 K/UL (150-450) Mean Platelet Volume 7.4 FL (6.5-10.1) Neutrophils (%) (Auto) % (45.0-75.0) Lymphocytes (%) (Auto) % (20.0-45.0) Monocytes (%) (Auto) % (1.0-10.0) Eosinophils (%) (Auto) % (0.0-3.0) Basophils (%) (Auto) % (0.0-2.0) Differential Total Cells Counted 100 Neutrophils % (Manual) 88 % (45-75) H Lymphocytes % (Manual) 7 % (20-45) L Monocytes % (Manual) 5 % (1-10) Eosinophils % (Manual) 0 % (0-3) Basophils % (Manual) 0 % (0-2) Band Neutrophils 0 % (0-8) Platelet Estimate Adequate Platelet Morphology Normal Anisocytosis 1+ Sodium Level 138 MMOL/L (136-145) Potassium Level 3.9 MMOL/L (3.5-5.1) Chloride Level 102 MMOL/L (98-107) Carbon Dioxide Level 30 MMOL/L (21-32) Anion Gap 6 mmol/L (5-15) Blood Urea Nitrogen 32 mg/dL (7-18) H Creatinine 0.9 MG/DL (0.55-1.30) Estimat Glomerular Filtration Rate > 60 mL/min (>60) Glucose Level 107 MG/DL (74-106) H Calcium Level 7.9 MG/DL (8.5-10.1) L Phosphorus Level 4.4 MG/DL (2.5-4.9) Magnesium Level 2.0 MG/DL (1.8-2.4) Total Bilirubin 0.6 MG/DL (0.2-1.0) Direct Bilirubin 0.3 MG/DL (0.0-0.3) Aspartate Amino Transf (AST/SGOT) 67 U/L (15-37) H Alanine Aminotransferase (ALT/SGPT) 117 U/L (12-78) H Alkaline Phosphatase 99 U/L (46-116) Total Protein 5.5 G/DL (6.4-8.2) L Albumin 1.9 G/DL (3.4-5.0) L Globulin 3.6 g/dL Albumin/Globulin Ratio 0.5 (1.0-2.7) L Plan Problems: (1) Hypoxia (2) Pneumonia due to COVID-19 virus (3) Abnormal LFTs Assessment & Plan: significantly elevated lfts on admission no etoh use meds noted and reviewed US ordered trend labs no abd pain exam benign will follow with recs thank you Gallbladder is unremarkable, without stones, wall thickening, nor pericholecystic fluid. Sonographic Sandoval's sign is negative. Common bile duct measures 5 mm in diameter. No intrahepatic biliary ductal dilatation. Liver demonstrates normal echogenicity, no focal abnormality. Portal vein and hep atic veins are patent. Pancreas is incompletely visualized due to overlying bowel gas, visualized portions are unremarkable. Spleen is unremarkable. Left kidney measures 10.2 cm in length. Right kidney measures 10.9 cm length. Both kidneys demonstrate normal echogenicity. There is no hydronephrosis. No focal abnormality . Unremarkable inferior vena cava. Abdominal aorta is partially obscured by bowel gas, visualized portions are non-aneurysmal . Impression: Essentially unremarkable exam. Negative for gallstones, dilated bile ducts, or other significant finding Incompletely visualized pancreas and abdominal aorta Shaji Godinez Apr 09, 2020 11:54
[2020-04-09 12:00] VITALS: BP 130/93
--- NOTE | 2020-04-09 12:52 | Internal Med Progress Note ---
Subjective Physician Name Didier Magallon Attending Physician Didier Magallon M.D. Current Medications Medications (Trade) Dose Ordered Sig/Rima Route PRN Reason Start Time Stop Time Status Last Admin Dose Admin Acetaminophen (Tylenol) 650 mg Q6H PRN ORAL For Pain 04/07/20 01:00 05/07/20 00:59 Acetaminophen (Tylenol) 650 mg Q6H PRN ORAL Temp >100.5 04/07/20 01:00 05/07/20 00:59 Albuterol Sulfate (Proventil MDI) 2 puff Q4H PRN INH Shortness of Breath 04/08/20 02:00 07/07/20 01:59 Aspirin (Ecotrin) 81 mg DAILY ORAL 04/08/20 09:00 05/23/20 08:59 04/09/20 09:00 Dexamethasone Sodium Phosphate (Decadron 4mg/ml vial) 6 mg DAILY IVP 04/07/20 09:00 04/16/20 08:59 04/09/20 09:00 Furosemide (Lasix) 40 mg BID IV 04/08/20 15:05 05/08/20 15:04 04/09/20 09:00 Guaifenesin/ Dextromethorphan (Robitussin DM Syrup) 10 ml Q6H PRN ORAL For Cough 04/07/20 20:15 07/06/20 20:14 04/07/20 21:27 Heparin Sodium (Porcine) (Heparin 5000 units/ml) 5,000 units EVERY 12 HOURS SUBQ 04/07/20 09:00 05/22/20 08:59 04/09/20 09:03 Lisinopril (ZestriL) 10 mg DAILY ORAL 04/09/20 09:00 05/09/20 08:59 04/09/20 09:02 Remdesivir 100 mg/ Sodium Chloride 250 ml @ 250 mls/hr Q24H IV 04/09/20 15:00 04/12/20 15:59 Spironolactone (Aldactone) 25 mg DAILY ORAL 04/09/20 09:00 05/09/20 08:59 04/09/20 09:00 Allergies: Coded Allergies: No Known Allergies (Unverified , 04/06/20) ROS Limited/Unobtainable: No Constitutional: Reports: weakness HEENT: Denies: no symptoms, eye pain, blurred vision, tearing, double vision, ear pain, ear discharge, nose pain, nose congestion, throat pain, throat swelling, mouth pain, mouth swelling, other Respiratory: Denies: no symptoms, cough, orthopnea, shortness of breath, SOB with excertion, SOB at rest, sputum, stridor, wheezing, other Gastrointestinal/Abdominal: Denies: no symptoms, abdomen distended, abdominal pain, black stools, tarry stools, blood in stool, constipated, diarrhea, difficulty swallowing, nausea, poor appetite, poor fluid intake, rectal ble eding, vomiting, other Subjective on venturi mask abd US neg LE duplex negative for DVT Objective Last Vital Signs Date Time Temp Pulse Resp B/P (MAP) Pulse Ox O2 Delivery O2 Flow Rate FiO2 04/09/20 09:02 123/87 04/09/20 08:00 96 Venturi Mask 14.0 55 04/09/20 08:00 97.2 75 18 Laboratory Tests Test 04/09/20 05:09 White Blood Count 8.7 K/UL (4.8-10.8) Red Blood Count 4.23 M/UL (4.70-6.10) L Hemoglobin 12.6 G/DL (14.2-18.0) L Hematocrit 39.0 % (42.0-52.0) L Mean Corpuscular Volume 92 FL (80-99) Mean Corpuscular Hemoglobin 29.8 PG (27.0-31.0) Mean Corpuscular Hemoglobin Concent 32.3 G/DL (32.0-36.0) Red Cell Distribution Width 15.8 % (11.6-14.8) H Platelet Count 209 K/UL (150-450) Mean Platelet Volume 7.4 FL (6.5-10.1) Neutrophils (%) (Auto) % (45.0-75.0) Lymphocytes (%) (Auto) % (20.0-45.0) Monocytes (%) (Auto) % (1.0-10.0) Eosinophils (%) (Auto) % (0.0-3.0) Basophils (%) (Auto) % (0.0-2.0) Differential Total Cells Counted 100 Neutrophils % (Manual) 88 % (45-75) H Lymphocytes % (Manual) 7 % (20-45) L Monocytes % (Manual) 5 % (1-10) Eosinophils % (Manual) 0 % (0-3) Basophils % (Manual) 0 % (0-2) Band Neutrophils 0 % (0-8) Platelet Estimate Adequate Platelet Morphology Normal Anisocytosis 1+ Sodium Level 138 MMOL/L (136-145) Potassium Level 3.9 MMOL/L (3.5-5.1) Chloride Level 102 MMOL/L (98-107) Carbon Dioxide Level 30 MMOL/L (21-32) Anion Gap 6 mmol/L (5-15) Blood Urea Nitrogen 32 mg/dL (7-18) H Creatinine 0.9 MG/DL (0.55-1.30) Estimat Glomerular Filtration Rate > 60 mL/min (>60) Glucose Level 107 MG/DL (74-106) H Calcium Level 7.9 MG/DL (8.5-10.1) L Phosphorus Level 4.4 MG/DL (2.5-4.9) Magnesium Level 2.0 MG/DL (1.8-2.4) Total Bilirubin 0.6 MG/DL (0.2-1.0) Direct Bilirubin 0.3 MG/DL (0.0-0.3) Aspartate Amino Transf (AST/SGOT) 67 U/L (15-37) H Alanine Aminotransferase (ALT/SGPT) 117 U/L (12-78) H Alkaline Phosphatase 99 U/L (46-116) Total Protein 5.5 G/DL (6.4-8.2) L Albumin 1.9 G/DL (3.4-5.0) L Globulin 3.6 g/dL Albumin/Globulin Ratio 0.5 (1.0-2.7) L Microbiology Date/Time Source Procedure Growth Status 04/06/20 18:54 Nasopharynx SARS-CoV-2 RdRp Gene Assay - Final Complete 04/06/20 18:54 Blood Blood Culture - Preliminary NO GROWTH AFTER 24 HOURS Resulted 04/06/20 18:40 Blood Blood Culture - Preliminary NO GROWTH AFTER 24 HOURS Resulted Intake and Output 04/08/20 04/09/20 19:00 07:00 Intake Total 240 ml 500 ml Output Total 2500 ml 300 ml Balance -2260 ml 200 ml Intake Oral 240 ml 500 ml Output Urine Total 2500 ml 300 ml Objective General appearance: alert, cooperative, no distress, appears stated age Head: Normocephalic, without obvious abnormality, atraumatic Eyes: conjunctivae/corneas clear. PERRL, EOM's intact. Fundi benign Throat: Lips, mucosa, and tongue normal. Teeth and gums normal Neck: supple, symmetrical, trachea midline, no adenopathy, thyroid: not enlarged, symmetric, no tenderness/mass/nodules, no carotid bruit and no JVD Lungs: + rhonchi bilaterally Heart: regular rate and rhythm, S1, S2 normal, no murmur, click, rub or gallop Abdomen: soft, non-tender. Bowel sounds normal. No masses, no organomegaly Extremities: 1+ pedal edema Pulses: 2+ and symmetric Skin: Skin color, texture, turgor normal. No rashes or lesions Neurologic: Grossly normal Assessment/Plan Assessment/Plan #COVID infection #elevated trop #LE edema #Elevated BNP #elevated lipase - admit tele - ID eval - pulm eval - cardiology eval - 2d echo - LE duplex - dexamethasone - monitor lytes - abd US - lasix per cardiology - aldactone - lisinopril - metop 25 BID - aspirin 81mg daily Didier Magallon M.D. Apr 09, 2020 12:52
[2020-04-09] MEDS: Maintenance Dose:Remdesivir 100mg/NS 230ml x 4 Doses IV SCH ×2 (15:28)
[2020-04-09 16:00] VITALS: BP 133/83
--- NOTE | 2020-04-09 18:54 | Cardiac Electrophysiology PN ---
Assessment/Plan Assessment/Plan 1. Non-ST elevation myocardial infarction with troponin of 0.076. It could be myocarditis due to the patient's COVID. The patient does not have renal failure and the creatinine is 1.2. 2. Congestive heart failure with BNP of more than 12,000. EF 20-25% and severe MR and TR On Lasix 40 iv bid, lisinopril, aldactone. Change metoprolol to coreg 3.125 bid 3. Elevated troponin. The patient is already on aspirin 81 mg daily and metoprolol 25 mg b.i.d. 4. Frequent PVCs. Due to EF 20% Continue Coreg 3.125 bid 5. COVID-19 pneumonia, on dexamethasone and 15 liter VM Subjective Subjective Has frequent PVCs and couplets on 15 liter VM. In SR Objective Last 24 Hour Vital Signs Date Time Temp Pulse Resp B/P (MAP) Pulse Ox O2 Delivery O2 Flow Rate FiO2 04/09/20 16:00 96.8 80 20 133/83 (100) 100 04/09/20 12:00 98.6 20 130/93 (105) 100 04/09/20 09:02 123/87 04/09/20 09:00 Venturi Mask 15.0 04/09/20 08:00 70 04/09/20 08:00 96 Venturi Mask 14.0 55 04/09/20 08:00 97.2 75 18 132/89 (103) 100 04/09/20 04:00 96.8 69 20 121/87 (98) 100 04/09/20 04:00 66 04/09/20 00:00 81 04/09/20 00:00 96.8 79 20 126/89 (101) 94 04/08/20 22:31 94 Venturi Mask 14.0 55 04/08/20 21:00 Venturi Mask 15.0 04/08/20 20:00 97.5 80 20 131/93 (106) 95 04/08/20 20:00 90 Intake and Output 04/08/20 04/09/20 19:00 07:00 Intake Total 240 ml 500 ml Output Total 2500 ml 300 ml Balance -2260 ml 200 ml Intake Oral 240 ml 500 ml Output Urine Total 2500 ml 300 ml Laboratory Tests Test 04/09/20 05:09 White Blood Count 8.7 K/UL (4.8-10.8) Red Blood Count 4.23 M/UL (4.70-6.10) L Hemoglobin 12.6 G/DL (14.2-18.0) L Hematocrit 39.0 % (42.0-52.0) L Mean Corpuscular Volume 92 FL (80-99) Mean Corpuscular Hemoglobin 29.8 PG (27.0-31.0) Mean Corpuscular Hemoglobin Concent 32.3 G/DL (32.0-36.0) Red Cell Distribution Width 15.8 % (11.6-14.8) H Platelet Count 209 K/UL (150-450) Mean Platelet Volume 7.4 FL (6.5-10.1) Neutrophils (%) (Auto) % (45.0-75.0) Lymphocytes (%) (Auto) % (20.0-45.0) Monocytes (%) (Auto) % (1.0-10.0) Eosinophils (%) (Auto) % (0.0-3.0) Basophils (%) (Auto) % (0.0-2.0) Differential Total Cells Counted 100 Neutrophils % (Manual) 88 % (45-75) H Lymphocytes % (Manual) 7 % (20-45) L Monocytes % (Manual) 5 % (1-10) Eosinophils % (Manual) 0 % (0-3) Basophils % (Manual) 0 % (0-2) Band Neutrophils 0 % (0-8) Platelet Estimate Adequate Platelet Morphology Normal Anisocytosis 1+ Sodium Level 138 MMOL/L (136-145) Potassium Level 3.9 MMOL/L (3.5-5.1) Chloride Level 102 MMOL/L (98-107) Carbon Dioxide Level 30 MMOL/L (21-32) Anion Gap 6 mmol/L (5-15) Blood Urea Nitrogen 32 mg/dL (7-18) H Creatinine 0.9 MG/DL (0.55-1.30) Estimat Glomerular Filtration Rate > 60 mL/min (>60) Glucose Level 107 MG/DL (74-106) H Calcium Level 7.9 MG/DL (8.5-10.1) L Phosphorus Level 4.4 MG/DL (2.5-4.9) Magnesium Level 2.0 MG/DL (1.8-2.4) Total Bilirubin 0.6 MG/DL (0.2-1.0) Direct Bilirubin 0.3 MG/DL (0.0-0.3) Aspartate Amino Transf (AST/SGOT) 67 U/L (15-37) H Alanine Aminotransferase (ALT/SGPT) 117 U/L (12-78) H Alkaline Phosphatase 99 U/L (46-116) Total Protein 5.5 G/DL (6.4-8.2) L Albumin 1.9 G/DL (3.4-5.0) L Globulin 3.6 g/dL Albumin/Globulin Ratio 0.5 (1.0-2.7) L Microbiology Date/Time Source Procedure Growth Status 04/06/20 18:54 Nasopharynx SARS-CoV-2 RdRp Gene Assay - Final Complete 04/06/20 18:54 Blood Blood Culture - Preliminary NO GROWTH AFTER 24 HOURS Resulted Objective HEAD AND NECK: mild JVD. LUNGS: Decreased breath sounds. CARDIOVASCULAR: regular S1 and S2 with no gallop. ABDOMEN: Soft. EXTREMITIES: 1+ pitting edema. Tutu Farah MD Apr 09, 2020 18:54
[2020-04-09 20:00] VITALS: BP 134/94
[2020-04-10] VITALS: BP 118/90
[2020-04-10 04:00] VITALS: BP 114/54
[2020-04-10 08:00] VITALS: BP 131/76
--- NOTE | 2020-04-10 08:06 | Neurology Progress Note ---
Interim History Interim History ROS Limited/Unobtainable: No Events: on Venturi maskl, am covering Dr. Edouard Objective Physical Exam Last Vital Signs Date Time Temp Pulse Resp B/P (MAP) Pulse Ox O2 Delivery O2 Flow Rate FiO2 04/10/20 04:00 98.9 74 19 114/54 (74) 97 04/09/20 21:00 Venturi Mask 15.0 04/09/20 19:50 55 General: well developed Head: normocophalic Neck: no rigidity EENT: benign Neurologic Exam Objective General: well developed Head: normocophalic Neck: no rigidity EENT: benign Neuro: Objective nc at more alert, responsive, oriented x 2 non focal, diffuse weakness Impression/Recommendations Diagnostic Impression Assessment and Rec's: 1. Encephalopathy likely 2/2 Covid 19 --> non focal exam 2. Hypoxia-liekly due to above -> oxygen, on VM 3. COVID 19+++ PNA --> isolation ID rec's defer neuro imaging delirium precautions Gissel Quiroga NP Apr 10, 2020 08:06
[2020-04-10 08:24] LABS: BASOPHILS % (AUTO) 0.9 % (0.0-2.0); EOSINOPHILS % (AUTO) 0.4 % (0.0-3.0); HEMATOCRIT 41.8 % (42.0-52.0); HEMOGLOBIN 13.2 G/DL (14.2-18.0); LYMPHOCYTES % (AUTO) 11.5 % (20.0-45.0); MEAN CORPUSCULAR VOLUME 95 FL (80-99); MONOCYTES % (AUTO) 3.6 % (1.0-10.0); NEUTROPHILS % (AUTO) 83.7 % (45.0-75.0); PLATELET COUNT 218 K/UL (150-450); RED BLOOD COUNT 4.38 M/UL (4.70-6.10); RED CELL DISTRIBUTION WIDTH 14.9 % (11.6-14.8); WHITE BLOOD COUNT 7.4 K/UL (4.8-10.8)
[2020-04-10 08:42] LABS: ALANINE AMINOTRANSFERASE 122 U/L (12-78); ALBUMIN/GLOBULIN RATIO 0.5 (1.0-2.7); ALKALINE PHOSPHATASE 95 U/L (46-116); ANION GAP 3 mmol/L (5-15); ASPARTATE AMINO TRANSFERASE 61 U/L (15-37); BILIRUBIN,TOTAL 0.6 MG/DL (0.2-1.0); BLOOD UREA NITROGEN 33 mg/dL (7-18); CARBON DIOXIDE 34 MMOL/L (21-32); CHLORIDE 102 MMOL/L (98-107); PHOSPHORUS 3.5 MG/DL (2.5-4.9); SODIUM 139 MMOL/L (136-145)
[2020-04-10] MEDS: Lisinopril 10mg tab ORAL SCH (09:47)
[2020-04-10] MEDS: Spironolactone 25mg tab ORAL SCH (09:47)
[2020-04-10] MEDS: Heparin 5000 units/ml inj SUBQ SCH ×2 (09:48→21:24)
[2020-04-10] MEDS: Aspirin EC 81mg tab ORAL SCH (09:49)
[2020-04-10 12:00] VITALS: BP 130/69
--- NOTE | 2020-04-10 12:43 | Internal Med Progress Note ---
Subjective Physician Name Didier Magallon Attending Physician Didier Magallon M.D. Current Medications Medications (Trade) Dose Ordered Sig/Rima Route PRN Reason Start Time Stop Time Status Last Admin Dose Admin Acetaminophen (Tylenol) 650 mg Q6H PRN ORAL For Pain 04/07/20 01:00 05/07/20 00:59 Acetaminophen (Tylenol) 650 mg Q6H PRN ORAL Temp >100.5 04/07/20 01:00 05/07/20 00:59 Albuterol Sulfate (Proventil MDI) 2 puff Q4H PRN INH Shortness of Breath 04/08/20 02:00 07/07/20 01:59 Aspirin (Ecotrin) 81 mg DAILY ORAL 04/08/20 09:00 05/23/20 08:59 04/10/20 09:49 Carvedilol (Coreg) 3.125 mg EVERY 12 HOURS ORAL 04/09/20 21:00 05/09/20 20:59 04/10/20 09:47 Dexamethasone Sodium Phosphate (Decadron 4mg/ml vial) 6 mg DAILY IVP 04/07/20 09:00 04/16/20 08:59 04/10/20 09:46 Furosemide (Lasix) 40 mg BID IV 04/08/20 15:05 05/08/20 15:04 04/10/20 09:46 Guaifenesin/ Dextromethorphan (Robitussin DM Syrup) 10 ml Q6H PRN ORAL For Cough 04/07/20 20:15 07/06/20 20:14 04/07/20 21:27 Heparin Sodium (Porcine) (Heparin 5000 units/ml) 5,000 units EVERY 12 HOURS SUBQ 04/07/20 09:00 05/22/20 08:59 04/10/20 09:48 Lisinopril (ZestriL) 10 mg DAILY ORAL 04/09/20 09:00 05/09/20 08:59 04/10/20 09:47 Remdesivir 100 mg/ Sodium Chloride 250 ml @ 250 mls/hr Q24H IV 04/09/20 15:00 04/12/20 15:59 04/09/20 15:28 Spironolactone (Aldactone) 25 mg DAILY ORAL 04/09/20 09:00 05/09/20 08:59 04/10/20 09:47 Allergies: Coded Allergies: No Known Allergies (Unverified , 04/06/20) ROS Limited/Unobtainable: No Constitutional: Reports: weakness HEENT: Denies: no symptoms, eye pain, blurred vision, tearing, double vision, ear pain, ear discharge, nose pain, nose congestion, throat pain, throat swelling, mouth pain, mouth swelling, other Cardiovascular: Denies: no symptoms, chest pain, edema, irregular heart rate, lightheadedness, palpitations, syncope, other Respiratory: Denies: no symptoms, cough, orthopnea, shortness of breath, SOB with excertion, SOB at rest, sputum, stridor, wheezing, other Gastrointestinal/Abdominal: Denies: no symptoms, abdomen distended, abdominal pain, black stools, tarry stools, blood in stool, constipated, diarrhea, difficulty swallowing, nausea, poor appetite, poor fluid intake, rectal bleeding, vomiting, other Genitourinary: Denies: no symptoms, burning, discharge, frequency, flank pain, hematuria, incontinence, pain, urgency, other Subjective on venturi mask abd US neg LE duplex negative for DVT Objective Last Vital Signs Date Time Temp Pulse Resp B/P (MAP) Pulse Ox O2 Delivery O2 Flow Rate FiO2 04/10/20 09:47 76 131/96 04/10/20 09:00 Venturi Mask 15.0 04/10/20 08:00 96.7 20 97 04/09/20 19:50 55 Laboratory Tests Test 04/10/20 06:35 White Blood Count 7.4 K/UL (4.8-10.8) Red Blood Count 4.38 M/UL (4.70-6.10) L Hemoglobin 13.2 G/DL (14.2-18.0) L Hematocrit 41.8 % (42.0-52.0) L Mean Corpuscular Volume 95 FL (80-99) Mean Corpuscular Hemoglobin 30.0 PG (27.0-31.0) Mean Corpuscular Hemoglobin Concent 31.5 G/DL (32.0-36.0) L Red Cell Distribution Width 14.9 % (11.6-14.8) H Platelet Count 218 K/UL (150-450) Mean Platelet Volume 7.4 FL (6.5-10.1) Neutrophils (%) (Auto) 83.7 % (45.0-75.0) H Lymphocytes (%) (Auto) 11.5 % (20.0-45.0) L Monocytes (%) (Auto) 3.6 % (1.0-10.0) Eosinophils (%) (Auto) 0.4 % (0.0-3.0) Basophils (%) (Auto) 0.9 % (0.0-2.0) Sodium Level 139 MMOL/L (136-145) Potassium Level 4.0 MMOL/L (3.5-5.1) Chloride Level 102 MMOL/L (98-107) Carbon Dioxide Level 34 MMOL/L (21-32) H Anion Gap 3 mmol/L (5-15) L Blood Urea Nitrogen 33 mg/dL (7-18) H Creatinine 1.0 MG/DL (0.55-1.30) Estimat Glomerular Filtration Rate > 60 mL/min (>60) Glucose Level 86 MG/DL (74-106) Calcium Level 8.0 MG/DL (8.5-10.1) L Phosphorus Level 3.5 MG/DL (2.5-4.9) Magnesium Level 2.0 MG/DL (1.8-2.4) Total Bilirubin 0.6 MG/DL (0.2-1.0) Direct Bilirubin 0.1 MG/DL (0.0-0.3) Aspartate Amino Transf (AST/SGOT) 61 U/L (15-37) H Alanine Aminotransferase (ALT/SGPT) 122 U/L (12-78) H Alkaline Phosphatase 95 U/L (46-116) Total Protein 5.7 G/DL (6.4-8.2) L Albumin 2.0 G/DL (3.4-5.0) L Globulin 3.7 g/dL Albumin/Globulin Ratio 0.5 (1.0-2.7) L Hepatitis A IgM Antibody Pending Hepatitis B Surface Antigen Pending Hepatitis B Core IgM Antibody Pending Hepatitis C Antibody Pending HIV (1&2) Antibody Rapid Pending Intake and Output 04/09/20 04/10/20 19:00 07:00 Intake Total 2500 ml 240 ml Output Total 3000 ml 1450 ml Balance -500 ml -1210 ml Intake Oral 2500 ml 240 ml Output Urine Total 3000 ml 1450 ml # Voids 6 4 Objective General appearance: alert, cooperative, no distress, appears stated age Head: Normocephalic, without obvious abnormality, atraumatic Eyes: conjunctivae/corneas clear. PERRL, EOM's intact. Fundi benign Throat: Lips, mucosa, and tongue normal. Teeth and gums normal Neck: supple, symmetrical, trachea midline, no adenopathy, thyroid: not enlarged, symmetric, no tenderness/mass/nodules, no carotid bruit and no JVD Lungs: + rhonchi bilaterally Heart: regular rate and rhythm, S1, S2 normal, no murmur, click, rub or gallop Abdomen: soft, non-tender. Bowel sounds normal. No masses, no organomegaly Extremities: 1+ pedal edema Pulses: 2+ and symmetric Skin: Skin color, texture, turgor normal. No rashes or lesions Neurologic: Grossly normal Assessment/Plan Assessment/Plan #COVID infection #elevated trop #LE edema #Elevated BNP #elevated lipase - admit tele - ID eval - pulm eval - cardiology eval - 2d echo - LE duplex - dexamethasone - monitor lytes - abd US - lasix per cardiology - aldactone - lisinopril - metop 25 BID - aspirin 81mg daily Didier Magallon M.D. Apr 10, 2020 12:43
--- NOTE | 2020-04-10 13:36 | Surgery Progress Note ---
Surgery Progress Note Subjective Additional Comments lft's stable no n/v comfortable tolerating Objective Last 24 Hour Vital Signs Date Time Temp Pulse Resp B/P (MAP) Pulse Ox O2 Delivery O2 Flow Rate FiO2 04/10/20 09:47 76 131/96 04/10/20 09:47 131/96 04/10/20 09:00 Venturi Mask 15.0 04/10/20 08:00 96.7 76 20 131/76 (94) 97 04/10/20 08:00 79 04/10/20 04:00 98.9 74 19 114/54 (74) 97 04/10/20 04:00 74 04/10/20 00:00 74 04/10/20 00:00 98.6 79 19 118/90 (99) 97 04/09/20 21:46 76 134/94 04/09/20 21:00 Venturi Mask 15.0 04/09/20 20:00 98.9 78 20 134/94 (107) 97 04/09/20 19:50 98 Venturi Mask 14.0 55 04/09/20 16:00 96.8 80 20 133/83 (100) 100 04/09/20 16:00 75 I&O Intake and Output 04/09/20 04/10/20 19:00 07:00 Intake Total 2500 ml 240 ml Output Total 3000 ml 1450 ml Balance -500 ml -1210 ml Intake Oral 2500 ml 240 ml Output Urine Total 3000 ml 1450 ml # Voids 6 4 Dressing: saturated Cardiovascular: RSR Respiratory: decreased breath sounds Abdomen: soft, non-tender, present bowel sounds Extremities: no edema, no tenderness, no cyanosis Laboratory Tests Test 04/10/20 06:35 White Blood Count 7.4 K/UL (4.8-10.8) Red Blood Count 4.38 M/UL (4.70-6.10) L Hemoglobin 13.2 G/DL (14.2-18.0) L Hematocrit 41.8 % (42.0-52.0) L Mean Corpuscular Volume 95 FL (80-99) Mean Corpuscular Hemoglobin 30.0 PG (27.0-31.0) Mean Corpuscular Hemoglobin Concent 31.5 G/DL (32.0-36.0) L Red Cell Distribution Width 14.9 % (11.6-14.8) H Platelet Count 218 K/UL (150-450) Mean Platelet Volume 7.4 FL (6.5-10.1) Neutrophils (%) (Auto) 83.7 % (45.0-75.0) H Lymphocytes (%) (Auto) 11.5 % (20.0-45.0) L Monocytes (%) (Auto) 3.6 % (1.0-10.0) Eosinophils (%) (Auto) 0.4 % (0.0-3.0) Basophils (%) (Auto) 0.9 % (0.0-2.0) Sodium Level 139 MMOL/L (136-145) Potassium Level 4.0 MMOL/L (3.5-5.1) Chloride Level 102 MMOL/L (98-107) Carbon Dioxide Level 34 MMOL/L (21-32) H Anion Gap 3 mmol/L (5-15) L Blood Urea Nitrogen 33 mg/dL (7-18) H Creatinine 1.0 MG/DL (0.55-1.30) Estimat Glomerular Filtration Rate > 60 mL/min (>60) Glucose Level 86 MG/DL (74-106) Calcium Level 8.0 MG/DL (8.5-10.1) L Phosphorus Level 3.5 MG/DL (2.5-4.9) Magnesium Level 2.0 MG/DL (1.8-2.4) Total Bilirubin 0.6 MG/DL (0.2-1.0) Direct Bilirubin 0.1 MG/DL (0.0-0.3) Aspartate Amino Transf (AST/SGOT) 61 U/L (15-37) H Alanine Aminotransferase (ALT/SGPT) 122 U/L (12-78) H Alkaline Phosphatase 95 U/L (46-116) Total Protein 5.7 G/DL (6.4-8.2) L Albumin 2.0 G/DL (3.4-5.0) L Globulin 3.7 g/dL Albumin/Globulin Ratio 0.5 (1.0-2.7) L Hepatitis A IgM Antibody Pending Hepatitis B Surface Antigen Pending Hepatitis B Core IgM Antibody Pending Hepatitis C Antibody Pending HIV (1&2) Antibody Rapid Pending Plan Problems: (1) Hypoxia (2) Pneumonia due to COVID-19 virus (3) Abnormal LFTs Assessment & Plan: significantly elevated lfts on admission no etoh use meds noted and reviewed US ordered trend labs no abd pain exam benign will follow with recs thank you Gallbladder is unremarkable, without stones, wall thickening, nor pericholecystic fluid. Sonographic Sandoval's sign is negative. Common bile duct measures 5 mm in diameter. No intrahepatic biliary ductal dilatation. Liver demonstrates normal echogenicity, no focal abnormality. Portal vein and hepatic veins are patent. Pancreas is incompletely visualized due to overlying bowel gas, visualized portions are unremarkable. Spleen is unremarkable. Left kidney measures 10.2 cm in length. Right kidney measures 10.9 cm length. Both kidneys demonstrate normal echogenicity. There is no hydronephrosis. No focal abnormality . Unremarkable inferior vena cava. Abdominal aorta is partially obscured by bowel gas, visualized portions are non-aneurysmal . Impression: Essentially unremarkable exam. Negative for gallstones, dilated bile ducts, or other significant finding Incompletely visualized pancreas and abdominal aorta Shaji Godinez Apr 10, 2020 13:36
[2020-04-10] MEDS: Maintenance Dose:Remdesivir 100mg/NS 230ml x 4 Doses IV SCH ×2 (15:45)
[2020-04-10 16:00] VITALS: BP 131/96
[2020-04-10 20:00] VITALS: BP 127/90
[2020-04-11] VITALS: BP 116/74
[2020-04-11 04:00] VITALS: BP 117/73
[2020-04-11 06:49] LABS: BASOPHILS % (AUTO) 1.4 % (0.0-2.0); EOSINOPHILS % (AUTO) 0.7 % (0.0-3.0); HEMATOCRIT 45.2 % (42.0-52.0); HEMOGLOBIN 14.1 G/DL (14.2-18.0); MEAN CORPUSCULAR VOLUME 95 FL (80-99); MONOCYTES % (AUTO) 3.8 % (1.0-10.0); NEUTROPHILS % (AUTO) 83.2 % (45.0-75.0); PLATELET COUNT 232 K/UL (150-450); RED BLOOD COUNT 4.75 M/UL (4.70-6.10); RED CELL DISTRIBUTION WIDTH 14.7 % (11.6-14.8); WHITE BLOOD COUNT 5.3 K/UL (4.8-10.8)
[2020-04-11 08:00] VITALS: BP 134/88
[2020-04-11 08:22] LABS: ALANINE AMINOTRANSFERASE 106 U/L (12-78); ALBUMIN/GLOBULIN RATIO 0.5 (1.0-2.7); ALKALINE PHOSPHATASE 92 U/L (46-116); ASPARTATE AMINO TRANSFERASE 47 U/L (15-37); BILIRUBIN,DIRECT 0.2 MG/DL (0.0-0.3); BILIRUBIN,TOTAL 0.5 MG/DL (0.2-1.0); BLOOD UREA NITROGEN 33 mg/dL (7-18); CALCIUM 8.4 MG/DL (8.5-10.1); CHLORIDE 100 MMOL/L (98-107); POTASSIUM 3.8 MMOL/L (3.5-5.1); SODIUM 137 MMOL/L (136-145)
[2020-04-11 08:30] LABS: CARBON DIOXIDE 30 MMOL/L (21-32)
[2020-04-11] MEDS: Heparin 5000 units/ml inj SUBQ SCH ×2 (09:22→21:00)
[2020-04-11] MEDS: Spironolactone 25mg tab ORAL SCH (09:23)
[2020-04-11] MEDS: Aspirin EC 81mg tab ORAL SCH (09:23)
[2020-04-11] MEDS: Lisinopril 10mg tab ORAL SCH (09:25)
--- NOTE | 2020-04-11 10:08 | Cardiac Electrophysiology PN ---
Assessment/Plan Assessment/Plan 1. Non-ST elevation myocardial infarction with troponin of 0.076 vs myocarditis due to the patient's COVID. The patient is already on aspirin 81 mg daily and Coreg Creatinine is 1.2. 2. Congestive heart failure with BNP of more than 12,000. EF 20-25% and severe MR and TR On Lasix 40 iv bid, lisinopril, Aldactone and Coreg 3.125 bid. Change Lasix to 40 po bid 3. Elevated troponin. 4. Frequent PVCs. Due to EF 20% Continue Coreg 3.125 bid 5. COVID-19 pneumonia, on dexamethasone and 3 liter NC Subjective Subjective Has less frequent PVCs in SR Off VM down to 3 liter NC Objective Last 24 Hour Vital Signs Date Time Temp Pulse Resp B/P (MAP) Pulse Ox O2 Delivery O2 Flow Rate FiO2 04/11/20 09:26 81 134/88 04/11/20 09:25 134/88 04/11/20 04:00 97.8 79 19 117/73 (88) 96 04/11/20 04:00 76 04/11/20 00:00 95 04/11/20 00:00 97.0 82 17 116/74 (88) 94 04/10/20 21:23 84 127/90 04/10/20 21:00 Nasal Cannula 3.0 04/10/20 20:17 96 Venturi Mask 14.0 55 04/10/20 20:00 96.9 76 17 127/90 (102) 96 04/10/20 20:00 83 04/10/20 18:00 82 04/10/20 16:00 97.7 89 18 131/96 (108) 97 04/10/20 12:00 81 04/10/20 12:00 96.4 81 19 130/69 (89) 98 Intake and Output 04/10/20 04/11/20 19:00 07:00 Intake Total 120 ml 800 ml Balance 120 ml 800 ml Intake Oral 120 ml 400 ml Other 400 ml # Voids 6 Laboratory Tests Test 04/11/20 05:30 White Blood Count 5.3 K/UL (4.8-10.8) Red Blood Count 4.75 M/UL (4.70-6.10) Hemoglobin 14.1 G/DL (14.2-18.0) L Hematocrit 45.2 % (42.0-52.0) Mean Corpuscular Volume 95 FL (80-99) Mean Corpuscular Hemoglobin 29.7 PG (27.0-31.0) Mean Corpuscular Hemoglobin Concent 31.2 G/DL (32.0-36.0) L Red Cell Distribution Width 14.7 % (11.6-14.8) Platelet Count 232 K/UL (150-450) Mean Platelet Volume 6.8 FL (6.5-10.1) Neutrophils (%) (Auto) 83.2 % (45.0-75.0) H Lymphocytes (%) (Auto) 11.0 % (20.0-45.0) L Monocytes (%) (Auto) 3.8 % (1.0-10.0) Eosinophils (%) (Auto) 0.7 % (0.0-3.0) Basophils (%) (Auto) 1.4 % (0.0-2.0) Sodium Level 137 MMOL/L (136-145) Potassium Level 3.8 MMOL/L (3.5-5.1) Chloride Level 100 MMOL/L (98-107) Carbon Dioxide Level 30 MMOL/L (21-32) Blood Urea Nitrogen 33 mg/dL (7-18) H Creatinine 1.0 MG/DL (0.55-1.30) Estimat Glomerular Filtration Rate > 60 mL/min (>60) Glucose Level 142 MG/DL (74-106) H Calcium Level 8.4 MG/DL (8.5-10.1) L Total Bilirubin 0.5 MG/DL (0.2-1.0) Direct Bilirubin 0.2 MG/DL (0.0-0.3) Aspartate Amino Transf (AST/SGOT) 47 U/L (15-37) H Alanine Aminotransferase (ALT/SGPT) 106 U/L (12-78) H Alkaline Phosphatase 92 U/L (46-116) Total Protein 5.8 G/DL (6.4-8.2) L Albumin 2.0 G/DL (3.4-5.0) L Globulin 3.8 g/dL Albumin/Globulin Ratio 0.5 (1.0-2.7) L Objective HEAD AND NECK: mild JVD. LUNGS: Decreased breath sounds. CARDIOVASCULAR: regular S1 and S2 with no gallop. ABDOMEN: Soft. EXTREMITIES: 1+ pitting edema. Tutu Farah MD Apr 11, 2020 10:08
--- NOTE | 2020-04-11 10:34 | CDS Physician Query ---
Clarification is required for compliance, coding accuracy, and to reflect severity of illness for this patient Dear Date: CDS:Queenie Moreau "Heart Failure / CHF" documented in Congestive heart failure with BNP of more than 12,000. EF 20-25% and severe MR and TR On Lasix 40 iv bid, lisinopril, Aldactone and Coreg 3.125 bid. Change Lasix to 40 po bid Please Clarify: Acuity [] Acute [] Chronic [] Acute on Chronic Type [] Systolic [] Diastolic [] Systolic & Diastolic (Combined) [] Other: Present on Admission: [] Yes [] No [] Clinically Undetermined Physician signature Date Please also document in your Progress Notes and/or Discharge Summary and indicate if the condition was present on admission. [facility]
--- NOTE | 2020-04-11 11:29 | Infectious Diseases Prog Note ---
Assessment/Plan Assessment/Plan antibiotics : remdesivir A 1. covid 19 pneumonia improving on 3 liters O2 with saturation 97 % 2. increased LFT 3. CHF P 1. continue remdesivir day 4 2. continue dexamethasone day 6 3. continue isolation Subjective Constitutional: Denies: fever, chills Respiratory: Reports: shortness of breath - less, dry cough - less Gastrointestinal/Abdominal: Denies: nausea, vomiting, diarrhea Musculoskeletal: Denies: pain Allergies: Coded Allergies: No Known Allergies (Unverified , 04/06/20) Objective Last 24 Hour Vital Signs Date Time Temp Pulse Resp B/P (MAP) Pulse Ox O2 Delivery O2 Flow Rate FiO2 04/11/20 09:26 81 134/88 04/11/20 09:25 134/88 04/11/20 08:00 96.8 86 20 134/88 (103) 97 04/11/20 04:00 97.8 79 19 117/73 (88) 96 04/11/20 04:00 76 04/11/20 00:00 95 04/11/20 00:00 97.0 82 17 116/74 (88) 94 04/10/20 21:23 84 127/90 04/10/20 21:00 Nasal Cannula 3.0 04/10/20 20:17 96 Venturi Mask 14.0 55 04/10/20 20:00 96.9 76 17 127/90 (102) 96 04/10/20 20:00 83 04/10/20 18:00 82 04/10/20 16:00 97.7 89 18 131/96 (108) 97 04/10/20 12:00 81 04/10/20 12:00 96.4 81 19 130/69 (89) 98 Height (Feet): 6 Height (Inches): 0.00 Weight (Pounds): 200 Laboratory Tests Test 04/11/20 05:30 White Blood Count 5.3 K/UL (4.8-10.8) Red Blood Count 4.75 M/UL (4.70-6.10) Hemoglobin 14.1 G/DL (14.2-18.0) L Hematocrit 45.2 % (42.0-52.0) Mean Corpuscular Volume 95 FL (80-99) Mean Corpuscular Hemoglobin 29.7 PG (27.0-31.0) Mean Corpuscular Hemoglobin Concent 31.2 G/DL (32.0-36.0) L Red Cell Distribution Width 14.7 % (11.6-14.8) Platelet Count 232 K/UL (150-450) Mean Platelet Volume 6.8 FL (6.5-10.1) Neutrophils (%) (Auto) 83.2 % (45.0-75.0) H Lymphocytes (%) (Auto) 11.0 % (20.0-45.0) L Monocytes (%) (Auto) 3.8 % (1.0-10.0) Eosinophils (%) (Auto) 0.7 % (0.0-3.0) Basophils (%) (Auto) 1.4 % (0.0-2.0) Sodium Level 137 MMOL/L (136-145) Potassium Level 3.8 MMOL/L (3.5-5.1) Chloride Level 100 MMOL/L (98-107) Carbon Dioxide Level 30 MMOL/L (21-32) Blood Urea Nitrogen 33 mg/dL (7-18) H Creatinine 1.0 MG/DL (0.55-1.30) Estimat Glomerular Filtration Rate > 60 mL/min (>60) Glucose Level 142 MG/DL (74-106) H Calcium Level 8.4 MG/DL (8.5-10.1) L Total Bilirubin 0.5 MG/DL (0.2-1.0) Direct Bilirubin 0.2 MG/DL (0.0-0.3) Aspartate Amino Transf (AST/SGOT) 47 U/L (15-37) H Alanine Aminotransferase (ALT/SGPT) 106 U/L (12-78) H Alkaline Phosphatase 92 U/L (46-116) Total Protein 5.8 G/DL (6.4-8.2) L Albumin 2.0 G/DL (3.4-5.0) L Globulin 3.8 g/dL Albumin/Globulin Ratio 0.5 (1.0-2.7) L Current Medications Medications (Trade) Dose Ordered Sig/Rima Route PRN Reason Start Time Stop Time Status Last Admin Dose Admin Acetaminophen (Tylenol) 650 mg Q6H PRN ORAL For Pain 04/07/20 01:00 05/07/20 00:59 Acetaminophen (Tylenol) 650 mg Q6H PRN ORAL Temp >100.5 04/07/20 01:00 05/07/20 00:59 Albuterol Sulfate (Proventil MDI) 2 puff Q4H PRN INH Shortness of Breath 04/08/20 02:00 07/07/20 01:59 Aspirin (Ecotrin) 81 mg DAILY ORAL 04/08/20 09:00 05/23/20 08:59 04/11/20 09:23 Carvedilol (Coreg) 3.125 mg EVERY 12 HOURS ORAL 04/09/20 21:00 05/09/20 20:59 04/11/20 09:26 Dexamethasone Sodium Phosphate (Decadron 4mg/ml vial) 6 mg DAILY IVP 04/07/20 09:00 04/16/20 08:59 04/11/20 09:23 Furosemide (Lasix) 40 mg EVERY 12 HOURS ORAL 04/11/20 21:00 05/11/20 20:59 Guaifenesin/ Dextromethorphan (Robitussin DM Syrup) 10 ml Q6H PRN ORAL For Cough 04/07/20 20:15 07/06/20 20:14 04/07/20 21:27 Heparin Sodium (Porcine) (Heparin 5000 units/ml) 5,000 units EVERY 12 HOURS SUBQ 04/07/20 09:00 05/22/20 08:59 04/11/20 09:22 Lisinopril (ZestriL) 10 mg DAILY ORAL 04/09/20 09:00 05/09/20 08:59 04/11/20 09:25 Remdesivir 100 mg/ Sodium Chloride 250 ml @ 250 mls/hr Q24H IV 04/09/20 15:00 04/12/20 15:59 04/10/20 15:45 Spironolactone (Aldactone) 25 mg DAILY ORAL 04/09/20 09:00 05/09/20 08:59 04/11/20 09:23 Catia Oglesby MD Apr 11, 2020 11:29
[2020-04-11 12:00] VITALS: BP 127/87
--- NOTE | 2020-04-11 14:31 | Pulmonology Progress Note ---
Subjective ROS Limited/Unobtainable: No Interval Events: None new Constitutional: Denies: fever, chills HEENT: Repors: no symptoms Respiratory: Reports: dry cough, shortness of breath Cardiovascular: Reports: no symptoms Gastrointestinal/Abdominal: Denies: nausea, vomiting, diarrhea Genitourinary: Reports: no symptoms Musculoskeletal: Denies: pain Allergies: Coded Allergies: No Known Allergies (Unverified , 04/06/20) Objective Last 24 Hour Vital Signs Date Time Temp Pulse Resp B/P (MAP) Pulse Ox O2 Delivery O2 Flow Rate FiO2 04/11/20 09:26 81 134/88 04/11/20 09:25 134/88 04/11/20 08:00 77 04/11/20 08:00 96.8 86 20 134/88 (103) 97 04/11/20 04:00 97.8 79 19 117/73 (88) 96 04/11/20 04:00 76 04/11/20 00:00 95 04/11/20 00:00 97.0 82 17 116/74 (88) 94 04/10/20 21:23 84 127/90 04/10/20 21:00 Nasal Cannula 3.0 04/10/20 20:17 96 Venturi Mask 14.0 55 04/10/20 20:00 96.9 76 17 127/90 (102) 96 04/10/20 20:00 83 04/10/20 18:00 82 04/10/20 16:00 97.7 89 18 131/96 (108) 97 Intake and Output 04/10/20 04/11/20 19:00 07:00 Intake Total 120 ml 800 ml Balance 120 ml 800 ml Intake Oral 120 ml 400 ml Other 400 ml # Voids 6 Objective 04/11 saturating at 97% on 2L NC 04/08 saturating at 97% on 15L Venturi mask General Appearance: no acute distress HEENT: normocephalic Respiratory: chest wall non-tender, lungs clear Cardiovascular: normal peripheral pulses Abdomen: normal bowel sounds Laboratory Tests 04/11/20 05:30: White Blood Count 5.3, Red Blood Count 4.75, Hemoglobin 14.1L, Hematocrit 45.2, Mean Corpuscular Volume 95, Mean Corpuscular Hemoglobin 29.7, Mean Corpuscular Hemoglobin Concent 31.2L, Red Cell Distribution Width 14.7, Platelet Count 232, Mean Platelet Volume 6.8, Neutrophils (%) (Auto) 83.2H, Lymphocytes (%) (Auto) 11.0L, Monocytes (%) (Auto) 3.8, Eosinophils (%) (Auto) 0.7, Basophils (%) (Auto) 1.4, Sodium Level 137, Potassium Level 3.8, Chloride Level 100, Carbon Dioxide Level 30, Blood Urea Nitrogen 33H, Creatinine 1.0, Estimat Glomerular Filtration Rate > 60, Glucose Level 142H, Calcium Level 8.4L, Total Bilirubin 0.5, Direct Bilirubin 0.2, Aspartate Amino Transf (AST/SGOT) 47H, Alanine Aminotransferase (ALT/SGPT) 106H, Alkaline Phosphatase 92, Total Protein 5.8L, Albumin 2.0L, Globulin 3.8, Albumin/Globulin Ratio 0.5L Current Medications Medications (Trade) Dose Ordered Sig/Rima Route PRN Reason Start Time Stop Time Status Last Admin Dose Admin Acetaminophen (Tylenol) 650 mg Q6H PRN ORAL For Pain 04/07/20 01:00 05/07/20 00:59 Acetaminophen (Tylenol) 650 mg Q6H PRN ORAL Temp >100.5 04/07/20 01:00 05/07/20 00:59 Albuterol Sulfate (Proventil MDI) 2 puff Q4H PRN INH Shortness of Breath 04/08/20 02:00 07/07/20 01:59 Aspirin (Ecotrin) 81 mg DAILY ORAL 04/08/20 09:00 05/23/20 08:59 04/11/20 09:23 Carvedilol (Coreg) 3.125 mg EVERY 12 HOURS ORAL 04/09/20 21:00 05/09/20 20:59 04/11/20 09:26 Dexamethasone Sodium Phosphate (Decadron 4mg/ml vial) 6 mg DAILY IVP 04/07/20 09:00 04/16/20 08:59 04/11/20 09:23 Furosemide (Lasix) 40 mg EVERY 12 HOURS ORAL 04/11/20 21:00 05/11/20 20:59 Guaifenesin/ Dextromethorphan (Robitussin DM Syrup) 10 ml Q6H PRN ORAL For Cough 04/07/20 20:15 07/06/20 20:14 04/07/20 21:27 Heparin Sodium (Porcine) (Heparin 5000 units/ml) 5,000 units EVERY 12 HOURS SUBQ 04/07/20 09:00 05/22/20 08:59 04/11/20 09:22 Lisinopril (ZestriL) 10 mg DAILY ORAL 04/09/20 09:00 05/09/20 08:59 04/11/20 09:25 Remdesivir 100 mg/ Sodium Chloride 250 ml @ 250 mls/hr Q24H IV 04/09/20 15:00 04/12/20 15:59 04/10/20 15:45 Spironolactone (Aldactone) 25 mg DAILY ORAL 04/09/20 09:00 05/09/20 08:59 04/11/20 09:23 Assessment/Plan Assessment/Plan 1. Hyperglycemia -Monitor BG -Of note, he is on Decadron 2. Leg edema -Patient is on Lasix -Venous duplex ultrasound of LE negative for DVT - 2D echo LV EF 20-25% - management per cardio 3. COVID-19 pneumonia with respiratory distress - On dexamethasone (04/07-) - On remdesivir (04/08-) - s/p broad spectrum Abx in ER - Currently saturating at 97% on 2L NC; will titrate down - Continue providing supplemental oxygen and wean as tolerated 4. DVT prophylaxis -On heparin 5. Respiratory alkalosis -Continue supplemental oxygen -Monitor ABG 6. ?UTI - per primary MD, and ID 7. Elevated LFTs - elevated but trending down - Abd US result pending The care for this patient was discussed with my supervising physician. Time spent for this case was approximately 31 minutes. Javan Wren Apr 11, 2020 14:31
[2020-04-11] MEDS: Maintenance Dose:Remdesivir 100mg/NS 230ml x 4 Doses IV SCH ×2 (15:00)
[2020-04-11 16:00] VITALS: BP 133/88
--- NOTE | 2020-04-11 17:29 | Internal Med Progress Note ---
Subjective Physician Name Didier Magallon Attending Physician Didier Magallon M.D. Current Medications Medications (Trade) Dose Ordered Sig/Rima Route PRN Reason Start Time Stop Time Status Last Admin Dose Admin Acetaminophen (Tylenol) 650 mg Q6H PRN ORAL For Pain 04/07/20 01:00 05/07/20 00:59 Acetaminophen (Tylenol) 650 mg Q6H PRN ORAL Temp >100.5 04/07/20 01:00 05/07/20 00:59 Albuterol Sulfate (Proventil MDI) 2 puff Q4H PRN INH Shortness of Breath 04/08/20 02:00 07/07/20 01:59 Aspirin (Ecotrin) 81 mg DAILY ORAL 04/08/20 09:00 05/23/20 08:59 04/11/20 09:23 Carvedilol (Coreg) 3.125 mg EVERY 12 HOURS ORAL 04/09/20 21:00 05/09/20 20:59 04/11/20 09:26 Dexamethasone Sodium Phosphate (Decadron 4mg/ml vial) 6 mg DAILY IVP 04/07/20 09:00 04/16/20 08:59 04/11/20 09:23 Furosemide (Lasix) 40 mg EVERY 12 HOURS ORAL 04/11/20 21:00 05/11/20 20:59 Guaifenesin/ Dextromethorphan (Robitussin DM Syrup) 10 ml Q6H PRN ORAL For Cough 04/07/20 20:15 07/06/20 20:14 04/07/20 21:27 Heparin Sodium (Porcine) (Heparin 5000 units/ml) 5,000 units EVERY 12 HOURS SUBQ 04/07/20 09:00 05/22/20 08:59 04/11/20 09:22 Lisinopril (ZestriL) 10 mg DAILY ORAL 04/09/20 09:00 05/09/20 08:59 04/11/20 09:25 Remdesivir 100 mg/ Sodium Chloride 250 ml @ 250 mls/hr Q24H IV 04/09/20 15:00 04/12/20 15:59 04/11/20 15:00 Spironolactone (Aldactone) 25 mg DAILY ORAL 04/09/20 09:00 05/09/20 08:59 04/11/20 09:23 Allergies: Coded Allergies: No Known Allergies (Unverified , 04/06/20) ROS Limited/Unobtainable: No Constitutional: Reports: weakness HEENT: Denies: no symptoms, eye pain, blurred vision, tearing, double vision, ear pain, ear discharge, nose pain, nose congestion, throat pain, throat swelling, mouth pain, mouth swelling, other Cardiovascular: Denies: no symptoms, chest pain, edema, irregular heart rate, lightheadedness, palpitations, syncope, other Gastrointestinal/Abdominal: Denies: no symptoms, abdomen distended, abdominal pain, black stools, tarry stools, blood in stool, constipated, diarrhea, difficulty swallowing, nausea, poor appetite, poor fluid intake, rectal bleeding, vomiting, other Genitourinary: Denies: no symptoms, burning, discharge, frequency, flank pain, hematuria, incontinence, pain, urgency, other Neurologic/Psychiatric: Denies: no symptoms, anxiety, depressed, emotional problems, headache, numbness, paresthesia, pre-existing deficit, seizure, tingling, tremors, weakness, other Subjective Decreasing oxygen requirement abd US neg LE duplex negative for DVT Objective Last Vital Signs Date Time Temp Pulse Resp B/P (MAP) Pulse Ox O2 Delivery O2 Flow Rate FiO2 04/11/20 12:00 98.1 96 20 127/87 (100) 98 04/11/20 09:00 Room Air 04/10/20 21:00 3.0 04/10/20 20:17 55 Laboratory Tests Test 04/11/20 05:30 White Blood Count 5.3 K/UL (4.8-10.8) Red Blood Count 4.75 M/UL (4.70-6.10) Hemoglobin 14.1 G/DL (14.2-18.0) L Hematocrit 45.2 % (42.0-52.0) Mean Corpuscular Volume 95 FL (80-99) Mean Corpuscular Hemoglobin 29.7 PG (27.0-31.0) Mean Corpuscular Hemoglobin Concent 31.2 G/DL (32.0-36.0) L Red Cell Distribution Width 14.7 % (11.6-14.8) Platelet Count 232 K/UL (150-450) Mean Platelet Volume 6.8 FL (6.5-10.1) Neutrophils (%) (Auto) 83.2 % (45.0-75.0) H Lymphocytes (%) (Auto) 11.0 % (20.0-45.0) L Monocytes (%) (Auto) 3.8 % (1.0-10.0) Eosinophils (%) (Auto) 0.7 % (0.0-3.0) Basophils (%) (Auto) 1.4 % (0.0-2.0) Sodium Level 137 MMOL/L (136-145) Potassium Level 3.8 MMOL/L (3.5-5.1) Chloride Level 100 MMOL/L (98-107) Carbon Dioxide Level 30 MMOL/L (21-32) Blood Urea Nitrogen 33 mg/dL (7-18) H Creatinine 1.0 MG/DL (0.55-1.30) Estimat Glomerular Filtration Rate > 60 mL/min (>60) Glucose Level 142 MG/DL (74-106) H Calcium Level 8.4 MG/DL (8.5-10.1) L Total Bilirubin 0.5 MG/DL (0.2-1.0) Direct Bilirubin 0.2 MG/DL (0.0-0.3) Aspartate Amino Transf (AST/SGOT) 47 U/L (15-37) H Alanine Aminotransferase (ALT/SGPT) 106 U/L (12-78) H Alkaline Phosphatase 92 U/L (46-116) Total Protein 5.8 G/DL (6.4-8.2) L Albumin 2.0 G/DL (3.4-5.0) L Globulin 3.8 g/dL Albumin/Globulin Ratio 0.5 (1.0-2.7) L Intake and Output 04/10/20 04/11/20 19:00 07:00 Intake Total 120 ml 800 ml Balance 120 ml 800 ml Intake Oral 120 ml 400 ml Other 400 ml # Voids 6 Objective General appearance: alert, cooperative, no distress, appears stated age Head: Normocephalic, without obvious abnormality, atraumatic Eyes: conjunctivae/corneas clear. PERRL, EOM's intact. Fundi benign Throat: Lips, mucosa, and tongue normal. Teeth and gums normal Neck: supple, symmetrical, trachea midline, no adenopathy, thyroid: not enlarged, symmetric, no tenderness/mass/nodules, no carotid bruit and no JVD Lungs: + rhonchi bilaterally Heart: regular rate and rhythm, S1, S2 normal, no murmur, click, rub or gallop Abdomen: soft, non-tender. Bowel sounds normal. No masses, no organomegaly Extremities: 1+ pedal edema Pulses: 2+ and symmetric Skin: Skin color, texture, turgor normal. No rashes or lesions Neurologic: Grossly normal Assessment/Plan Assessment/Plan #COVID infection #elevated trop #LE edema #Elevated BNP #elevated lipase - admit tele - ID eval - pulm eval - cardiology eval - 2d echo - LE duplex - dexamethasone - monitor lytes - abd US - lasix per cardiology - aldactone - lisinopril - metop 25 BID - aspirin 81mg daily Didier Magallon M.D. Apr 11, 2020 17:29
--- NOTE | 2020-04-11 18:52 | Surgery Progress Note ---
Surgery Progress Note Subjective Additional Comments lft's improving no n/v no pain abd stable comfortable Objective Last 24 Hour Vital Signs Date Time Temp Pulse Resp B/P (MAP) Pulse Ox O2 Delivery O2 Flow Rate FiO2 04/11/20 16:00 92 04/11/20 16:00 96.3 81 20 133/88 (103) 95 04/11/20 12:00 81 04/11/20 12:00 98.1 96 20 127/87 (100) 98 04/11/20 09:26 81 134/88 04/11/20 09:25 134/88 04/11/20 09:04 95 Venturi Mask 14.0 55 04/11/20 09:00 Room Air 04/11/20 08:00 77 04/11/20 08:00 96.8 86 20 134/88 (103) 97 04/11/20 04:00 97.8 79 19 117/73 (88) 96 04/11/20 04:00 76 04/11/20 00:00 95 04/11/20 00:00 97.0 82 17 116/74 (88) 94 04/10/20 21:23 84 127/90 04/10/20 21:00 Nasal Cannula 3.0 04/10/20 20:17 96 Venturi Mask 14.0 55 04/10/20 20:00 96.9 76 17 127/90 (102) 96 04/10/20 20:00 83 I&O l Intake and Output 04/10/20 04/11/20 19:00 07:00 Intake Total 120 ml 800 ml Balance 120 ml 800 ml Intake Oral 120 ml 400 ml Other 400 ml # Voids 6 Cardiovascular: RSR Respiratory: clear Abdomen: soft, non-tender, present bowel sounds, non-distended Extremities: no edema, no tenderness, no cyanosis Laboratory Tests Test 04/11/20 05:30 White Blood Count 5.3 K/UL (4.8-10.8) Red Blood Count 4.75 M/UL (4.70-6.10) Hemoglobin 14.1 G/DL (14.2-18.0) L Hematocrit 45.2 % (42.0-52.0) Mean Corpuscular Volume 95 FL (80-99) Mean Corpuscular Hemoglobin 29.7 PG (27.0-31.0) Mean Corpuscular Hemoglobin Concent 31.2 G/DL (32.0-36.0) L Red Cell Distribution Width 14.7 % (11.6-14.8) Platelet Count 232 K/UL (150-450) Mean Platelet Volume 6.8 FL (6.5-10.1) Neutrophils (%) (Auto) 83.2 % (45.0-75.0) H Lymphocytes (%) (Auto) 11.0 % (20.0-45.0) L Monocytes (%) (Auto) 3.8 % (1.0-10.0) Eosinophils (%) (Auto) 0.7 % (0.0-3.0) Basophils (%) (Auto) 1.4 % (0.0-2.0) Sodium Level 137 MMOL/L (136-145) Potassium Level 3.8 MMOL/L (3.5-5.1) Chloride Level 100 MMOL/L (98-107) Carbon Dioxide Level 30 MMOL/L (21-32) Blood Urea Nitrogen 33 mg/dL (7-18) H Creatinine 1.0 MG/DL (0.55-1.30) Estimat Glomerular Filtration Rate > 60 mL/min (>60) Glucose Level 142 MG/DL (74-106) H Calcium Level 8.4 MG/DL (8.5-10.1) L Total Bilirubin 0.5 MG/DL (0.2-1.0) Direct Bilirubin 0.2 MG/DL (0.0-0.3) Aspartate Amino Transf (AST/SGOT) 47 U/L (15-37) H Alanine Aminotransferase (ALT/SGPT) 106 U/L (12-78) H Alkaline Phosphatase 92 U/L (46-116) Total Protein 5.8 G/DL (6.4-8.2) L Albumin 2.0 G/DL (3.4-5.0) L Globulin 3.8 g/dL Albumin/Globulin Ratio 0.5 (1.0-2.7) L Plan Problems: (1) Hypoxia (2) Pneumonia due to COVID-19 virus (3) Abnormal LFTs Assessment & Plan: significantly elevated lfts on admission no etoh use meds noted and reviewed US ordered trend labs no abd pain exam benign will follow with recs thank you Gallbladder is unremarkable, without stones, wall thickening, nor pericholecystic fluid. Sonographic Sandoval's sign is negative. Common bile duct measures 5 mm in diameter. No intrahepatic biliary ductal dilatation. Liver demonstrates normal echogenicity, no focal abnormality. Portal vein and hepatic veins are patent. Pancreas is incompletely visualized due to overlying bowel gas, visualized portions are unremarkable. Spleen is unremarkable. Left kidney measures 10.2 cm in length. Right kidney measures 10.9 cm length. Both kidneys demonstrate normal echogenicity. There is no hydronephrosis. No focal abnormality . Unremarkable inferior vena cava. Abdominal aorta is partially obscured by bowel gas, visualized portions are non-aneurysmal . Impression: Essentially unremarkable exam. Negative for gallstones, dilated bile ducts, or other significant finding Incompletely visualized pancreas and abdominal aorta Shaji Godinez Apr 11, 2020 18:52
[2020-04-11 20:00] VITALS: BP 121/81
[2020-04-11] MEDS: Furosemide 40mg tab ORAL SCH (21:00)
[2020-04-12] VITALS: BP 119/71
[2020-04-12 04:00] VITALS: BP 106/69
[2020-04-12 04:31] LABS: BASOPHILS % (AUTO) 0.5 % (0.0-2.0); EOSINOPHILS % (AUTO) 0.6 % (0.0-3.0); HEMOGLOBIN 14.9 G/DL (14.2-18.0); LYMPHOCYTES % (AUTO) 16.2 % (20.0-45.0); MEAN CORPUSCULAR VOLUME 90 FL (80-99); MONOCYTES % (AUTO) 4.4 % (1.0-10.0); NEUTROPHILS % (AUTO) 78.3 % (45.0-75.0); PLATELET COUNT 270 K/UL (150-450); RED BLOOD COUNT 4.97 M/UL (4.70-6.10); RED CELL DISTRIBUTION WIDTH 15.7 % (11.6-14.8); WHITE BLOOD COUNT 5.8 K/UL (4.8-10.8)
[2020-04-12 04:50] LABS: ALANINE AMINOTRANSFERASE 93 U/L (12-78); ALBUMIN 2.2 G/DL (3.4-5.0); ALBUMIN/GLOBULIN RATIO 0.5 (1.0-2.7); ALKALINE PHOSPHATASE 91 U/L (46-116); ANION GAP 4 mmol/L (5-15); ASPARTATE AMINO TRANSFERASE 33 U/L (15-37); BILIRUBIN,DIRECT 0.2 MG/DL (0.0-0.3); BILIRUBIN,TOTAL 0.6 MG/DL (0.2-1.0); BLOOD UREA NITROGEN 31 mg/dL (7-18); CARBON DIOXIDE 31 MMOL/L (21-32); CHLORIDE 103 MMOL/L (98-107); SODIUM 138 MMOL/L (136-145)
[2020-04-12] MEDS: Heparin 5000 units/ml inj SUBQ SCH (09:00)
--- NOTE | 2020-04-12 10:35 | Pulmonology Progress Note ---
Subjective ROS Limited/Unobtainable: No Interval Events: None new Constitutional: Denies: fever, chills HEENT: Repors: no symptoms Respiratory: Reports: dry cough, shortness of breath Cardiovascular: Reports: no symptoms Gastrointestinal/Abdominal: Denies: nausea, vomiting, diarrhea Genitourinary: Reports: no symptoms Musculoskeletal: Denies: pain Allergies: Coded Allergies: No Known Allergies (Unverified , 04/06/20) Objective Last 24 Hour Vital Signs Date Time Temp Pulse Resp B/P (MAP) Pulse Ox O2 Delivery O2 Flow Rate FiO2 04/12/20 04:00 98.2 85 19 106/69 (81) 95 04/12/20 04:00 82 04/12/20 00:00 97.7 81 19 119/71 (87) 95 04/12/20 00:00 79 04/11/20 23:41 96 Venturi Mask 14.0 55 04/11/20 21:00 78 121/81 04/11/20 21:00 Room Air 04/11/20 20:00 80 04/11/20 20:00 97.0 78 20 121/81 (94) 95 04/11/20 16:00 92 04/11/20 16:00 96.3 81 20 133/88 (103) 95 04/11/20 12:00 81 04/11/20 12:00 98.1 96 20 127/87 (100) 98 Intake and Output 04/11/20 04/12/20 19:00 07:00 Intake Total 700 ml 1000 ml Output Total 2500 ml 1500 ml Balance -1800 ml -500 ml Intake Oral 700 ml Other 1000 ml Output Urine Total 2500 ml 1500 ml # Voids 6 4 # Bowel Movements 1 Objective 04/12 saturating at 95-96% on 3L NC 04/11 saturating at 97% on 2L NC 04/08 saturating at 97% on 15L Venturi mask General Appearance: no acute distress HEENT: normocephalic Respiratory: chest wall non-tender, lungs clear Cardiovascular: normal peripheral pulses Abdomen: normal bowel sounds Laboratory Tests 04/12/20 04:00: White Blood Count 5.8, Red Blood Count 4.97, Hemoglobin 14.9, Hematocrit 45.0, Mean Corpuscular Volume 90, Mean Corpuscular Hemoglobin 29.9, Mean Corpuscular Hemoglobin Concent 33.1, Red Cell Distribution Width 15.7H, Platelet Count 270, Mean Platelet Volume 7.1, Neutrophils (%) (Auto) 78.3H, Lymphocytes (%) (Auto) 16.2L, Monocytes (%) (Auto) 4.4, Eosinophils (%) (Auto) 0.6, Basophils (%) (Auto) 0.5, Sodium Level 138, Potassium Level 4.0, Chloride Level 103, Carbon Dioxide Level 31, Anion Gap 4L, Blood Urea Nitrogen 31H, Creatinine 1.0, Estimat Glomerular Filtration Rate > 60, Glucose Level 100, Calcium Level 8.0L, Total Bilirubin 0.6, Direct Bilirubin 0.2, Aspartate Amino Transf (AST/SGOT) 33, Alanine Aminotransferase (ALT/SGPT) 93H, Alkaline Phosphatase 91, Total Protein 6.3L, Albumin 2.2L, Globulin 4.1, Albumin/Globulin Ratio 0.5L Current Medications Medications (Trade) Dose Ordered Sig/Rima Route PRN Reason Start Time Stop Time Status Last Admin Dose Admin Acetaminophen (Tylenol) 650 mg Q6H PRN ORAL For Pain 04/07/20 01:00 05/07/20 00:59 Acetaminophen (Tylenol) 650 mg Q6H PRN ORAL Temp >100.5 04/07/20 01:00 05/07/20 00:59 Albuterol Sulfate (Proventil MDI) 2 puff Q4H PRN INH Shortness of Breath 04/08/20 02:00 07/07/20 01:59 Aspirin (Ecotrin) 81 mg DAILY ORAL 04/08/20 09:00 05/23/20 08:59 04/11/20 09:23 Carvedilol (Coreg) 3.125 mg EVERY 12 HOURS ORAL 04/09/20 21:00 05/09/20 20:59 04/11/20 21:00 Dexamethasone Sodium Phosphate (Decadron 4mg/ml vial) 6 mg DAILY IVP 04/07/20 09:00 04/16/20 08:59 04/11/20 09:23 Furosemide (Lasix) 40 mg EVERY 12 HOURS ORAL 04/11/20 21:00 05/11/20 20:59 04/11/20 21:00 Guaifenesin/ Dextromethorphan (Robitussin DM Syrup) 10 ml Q6H PRN ORAL For Cough 04/07/20 20:15 47/21 20:14 04/07/20 21:27 Heparin Sodium (Porcine) (Heparin 5000 units/ml) 5,000 units EVERY 12 HOURS SUBQ 04/07/20 09:00 05/22/20 08:59 04/11/20 21:00 Lisinopril (ZestriL) 10 mg DAILY ORAL 04/09/20 09:00 05/09/20 08:59 04/11/20 09:25 Remdesivir 100 mg/ Sodium Chloride 250 ml @ 250 mls/hr Q24H IV 04/09/20 15:00 04/12/20 15:59 04/11/20 15:00 Spironolactone (Aldactone) 25 mg DAILY ORAL 04/09/20 09:00 05/09/20 08:59 04/11/20 09:23 Assessment/Plan Assessment/Plan 1. Hyperglycemia -Monitor BG -Of note, he is on Decadron 2. Leg edema -Patient is on Lasix -Venous duplex ultrasound of LE negative for DVT - 2D echo LV EF 20-25% - management per cardio 3. COVID-19 pneumonia with respiratory distress - On dexamethasone (04/07-) - On remdesivir (04/08-) - s/p broad spectrum Abx in ER - Currently saturating at 95-96% on 3L NC; will titrate down - Continue providing supplemental oxygen and wean as tolerated 4. DVT prophylaxis -On heparin 5. Respiratory alkalosis -Continue supplemental oxygen -Monitor ABG 6. ?UTI - per primary MD, and ID 7. Elevated LFTs; improving - elevated but trending down - Abd US: essentially unremarkable exam The care for this patient was discussed with my supervising physician. Time spent for this case was approximately 31 minutes. Javan Wren Apr 12, 2020 10:35
[2020-04-12] MEDS: Spironolactone 25mg tab ORAL SCH (11:01)
[2020-04-12] MEDS: Aspirin EC 81mg tab ORAL SCH (11:05)
[2020-04-12] MEDS: Furosemide 40mg tab ORAL SCH (11:06)
[2020-04-12] MEDS: Lisinopril 10mg tab ORAL SCH (11:06)
[2020-04-12 12:00] VITALS: BP 115/70
--- NOTE | 2020-04-12 12:05 | Cardiac Electrophysiology PN ---
Assessment/Plan Assessment/Plan 1. Non-ST elevation myocardial infarction with troponin of 0.076 vs myocarditis due to the patient's COVID. The patient is already on aspirin 81 mg daily and Coreg Creatinine is 1.2. 2. Congestive heart failure with BNP of more than 12,000. EF 20-25% and severe MR and TR On Lasix 40 po bid, lisinopril, Aldactone and Coreg 3.125 bid. 3. Elevated troponin. 4. Frequent PVCs. Due to EF 20% Continue Coreg 3.125 bid 5. COVID-19 pneumonia, on dexamethasone and 3 liter NC Subjective Subjective Has less frequent PVCs in SR On 3 liter NC Objective Last 24 Hour Vital Signs Date Time Temp Pulse Resp B/P (MAP) Pulse Ox O2 Delivery O2 Flow Rate FiO2 04/12/20 11:06 106/69 04/12/20 11:05 82 106/69 04/12/20 09:00 Room Air 04/12/20 08:00 92 04/12/20 04:00 98.2 85 19 106/69 (81) 95 04/12/20 04:00 82 04/12/20 00:00 97.7 81 19 119/71 (87) 95 04/12/20 00:00 79 04/11/20 23:41 96 Venturi Mask 14.0 55 04/11/20 21:00 78 121/81 04/11/20 21:00 Room Air 04/11/20 20:00 80 04/11/20 20:00 97.0 78 20 121/81 (94) 95 04/11/20 16:00 92 04/11/20 16:00 96.3 81 20 133/88 (103) 95 Intake and Output 04/11/20 04/12/20 19:00 07:00 Intake Total 700 ml 1000 ml Output Total 2500 ml 1500 ml Balance -1800 ml -500 ml Intake Oral 700 ml Other 1000 ml Output Urine Total 2500 ml 1500 ml # Voids 6 4 # Bowel Movements 1 Laboratory Tests Test 04/12/20 04:00 White Blood Count 5.8 K/UL (4.8-10.8) Red Blood Count 4.97 M/UL (4.70-6.10) Hemoglobin 14.9 G/DL (14.2-18.0) Hematocrit 45.0 % (42.0-52.0) Mean Corpuscular Volume 90 FL (80-99) Mean Corpuscular Hemoglobin 29.9 PG (27.0-31.0) Mean Corpuscular Hemoglobin Concent 33.1 G/DL (32.0-36.0) Red Cell Distribution Width 15.7 % (11.6-14.8) H Platelet Count 270 K/UL (150-450) Mean Platelet Volume 7.1 FL (6.5-10.1) Neutrophils (%) (Auto) 78.3 % (45.0-75.0) H Lymphocytes (%) (Auto) 16.2 % (20.0-45.0) L Monocytes (%) (Auto) 4.4 % (1.0-10.0) Eosinophils (%) (Auto) 0.6 % (0.0-3.0) Basophils (%) (Auto) 0.5 % (0.0-2.0) Sodium Level 138 MMOL/L (136-145) Potassium Level 4.0 MMOL/L (3.5-5.1) Chloride Level 103 MMOL/L (98-107) Carbon Dioxide Level 31 MMOL/L (21-32) Anion Gap 4 mmol/L (5-15) L Blood Urea Nitrogen 31 mg/dL (7-18) H Creatinine 1.0 MG/DL (0.55-1.30) Estimat Glomerular Filtration Rate > 60 mL/min (>60) Glucose Level 100 MG/DL (74-106) Calcium Level 8.0 MG/DL (8.5-10.1) L Total Bilirubin 0.6 MG/DL (0.2-1.0) Direct Bilirubin 0.2 MG/DL (0.0-0.3) Aspartate Amino Transf (AST/SGOT) 33 U/L (15-37) Alanine Aminotransferase (ALT/SGPT) 93 U/L (12-78) H Alkaline Phosphatase 91 U/L (46-116) Total Protein 6.3 G/DL (6.4-8.2) L Albumin 2.2 G/DL (3.4-5.0) L Globulin 4.1 g/dL Albumin/Globulin Ratio 0.5 (1.0-2.7) L Objective HEAD AND NECK: mild JVD. LUNGS: Decreased breath sounds. CARDIOVASCULAR: regular S1 and S2 with no gallop. ABDOMEN: Soft. EXTREMITIES: 1+ pitting edema. Tutu Farah MD Apr 12, 2020 12:05
--- NOTE | 2020-04-12 12:41 | Infectious Diseases Prog Note ---
Assessment/Plan Assessment/Plan A 1. COVID19 pneumonia 2. increased LFT 3. CHF, EF=20-25% 4. Mitral & Tricuspid regurgitation P 1. Discontinue remdesivir 2. Discontinue dexamethasone 3. continue isolation 4. Clear for discharge Subjective ROS Limited/Unobtainable: No Constitutional: Reports: no symptoms Respiratory: Reports: no symptoms Gastrointestinal/Abdominal: Reports: no symptoms Genitourinary: Reports: no symptoms Allergies: Coded Allergies: No Known Allergies (Unverified , 04/06/20) Objective Last 24 Hour Vital Signs Date Time Temp Pulse Resp B/P (MAP) Pulse Ox O2 Delivery O2 Flow Rate FiO2 04/12/20 12:00 97.9 90 20 115/70 (85) 99 04/12/20 11:06 106/69 04/12/20 11:05 82 106/69 04/12/20 09:00 Room Air 04/12/20 08:00 92 04/12/20 04:00 98.2 85 19 106/69 (81) 95 04/12/20 04:00 82 04/12/20 00:00 97.7 81 19 119/71 (87) 95 04/12/20 00:00 79 04/11/20 23:41 96 Venturi Mask 14.0 55 04/11/20 21:00 78 121/81 04/11/20 21:00 Room Air 04/11/20 20:00 80 04/11/20 20:00 97.0 78 20 121/81 (94) 95 04/11/20 16:00 92 04/11/20 16:00 96.3 81 20 133/88 (103) 95 Height (Feet): 6 Height (Inches): 0.00 Weight (Pounds): 200 General Appearance: no acute distress HEENT: mucous membranes moist Respiratory/Chest: no respiratory distress, other - on room air oxygen Cardiovascular: normal rate Abdomen: soft, non tender Extremities: other - decreased edema Neurologic/Psychiatric: alert, responsive Laboratory Tests Test 04/12/20 04:00 White Blood Count 5.8 K/UL (4.8-10.8) Red Blood Count 4.97 M/UL (4.70-6.10) Hemoglobin 14.9 G/DL (14.2-18.0) Hematocrit 45.0 % (42.0-52.0) Mean Corpuscular Volume 90 FL (80-99) Mean Corpuscular Hemoglobin 29.9 PG (27.0-31.0) Mean Corpuscular Hemoglobin Concent 33.1 G/DL (32.0-36.0) Red Cell Distribution Width 15.7 % (11.6-14.8) H Platelet Count 270 K/UL (150-450) Mean Platelet Volume 7.1 FL (6.5-10.1) Neutrophils (%) (Auto) 78.3 % (45.0-75.0) H Lymphocytes (%) (Auto) 16.2 % (20.0-45.0) L Monocytes (%) (Auto) 4.4 % (1.0-10.0) Eosinophils (%) (Auto) 0.6 % (0.0-3.0) Basophils (%) (Auto) 0.5 % (0.0-2.0) Sodium Level 138 MMOL/L (136-145) Potassium Level 4.0 MMOL/L (3.5-5.1) Chloride Level 103 MMOL/L (98-107) Carbon Dioxide Level 31 MMOL/L (21-32) Anion Gap 4 mmol/L (5-15) L Blood Urea Nitrogen 31 mg/dL (7-18) H Creatinine 1.0 MG/DL (0.55-1.30) Estimat Glomerular Filtration Rate > 60 mL/min (>60) Glucose Level 100 MG/DL (74-106) Calcium Level 8.0 MG/DL (8.5-10.1) L Total Bilirubin 0.6 MG/DL (0.2-1.0) Direct Bilirubin 0.2 MG/DL (0.0-0.3) Aspartate Amino Transf (AST/SGOT) 33 U/L (15-37) Alanine Aminotransferase (ALT/SGPT) 93 U/L (12-78) H Alkaline Phosphatase 91 U/L (46-116) Total Protein 6.3 G/DL (6.4-8.2) L Albumin 2.2 G/DL (3.4-5.0) L Globulin 4.1 g/dL Albumin/Globulin Ratio 0.5 (1.0-2.7) L Current Medications Medications (Trade) Dose Ordered Sig/Rima Route PRN Reason Start Time Stop Time Status Last Admin Dose Admin Acetaminophen (Tylenol) 650 mg Q6H PRN ORAL For Pain 04/07/20 01:00 05/07/20 00:59 Acetaminophen (Tylenol) 650 mg Q6H PRN ORAL Temp >100.5 04/07/20 01:00 05/07/20 00:59 Albuterol Sulfate (Proventil MDI) 2 puff Q4H PRN INH Shortness of Breath 04/08/20 02:00 07/07/20 01:59 Aspirin (Ecotrin) 81 mg DAILY ORAL 04/08/20 09:00 05/23/20 08:59 04/12/20 11:05 Carvedilol (Coreg) 3.125 mg EVERY 12 HOURS ORAL 04/09/20 21:00 05/09/20 20:59 04/12/20 11:05 Dexamethasone Sodium Phosphate (Decadron 4mg/ml vial) 6 mg DAILY IVP 04/07/20 09:00 04/16/20 08:59 04/12/20 11:00 Furosemide (Lasix) 40 mg EVERY 12 HOURS ORAL 04/11/20 21:00 05/11/20 20:59 04/12/20 11:06 Guaifenesin/ Dextromethorphan (Robitussin DM Syrup) 10 ml Q6H PRN ORAL For Cough 04/07/20 20:15 07/06/20 20:14 04/07/20 21:27 Heparin Sodium (Porcine) (Heparin 5000 units/ml) 5,000 units EVERY 12 HOURS SUBQ 04/07/20 09:00 05/22/20 08:59 04/11/20 21:00 Lisinopril (ZestriL) 10 mg DAILY ORAL 04/09/20 09:00 05/09/20 08:59 04/12/20 11:06 Remdesivir 100 mg/ Sodium Chloride 250 ml @ 250 mls/hr Q24H IV 04/09/20 15:00 04/12/20 15:59 04/11/20 15:00 Spironolactone (Aldactone) 25 mg DAILY ORAL 04/09/20 09:00 05/09/20 08:59 04/12/20 11:01 Hernan Greene MD Apr 12, 2020 12:41
--- NOTE | 2020-04-12 13:42 | Neurology Progress Note ---
Interim History Interim History ROS Limited/Unobtainable: No Events: covering Dr. Edouard alert and orineted Objective Physical Exam Last Vital Signs Date Time Temp Pulse Resp B/P (MAP) Pulse Ox O2 Delivery O2 Flow Rate FiO2 04/12/20 12:00 97.9 90 20 115/70 (85) 99 04/12/20 09:00 Room Air 04/11/20 23:41 14.0 55 Laboratory Tests Test 04/12/20 04:00 White Blood Count 5.8 K/UL (4.8-10.8) Red Blood Count 4.97 M/UL (4.70-6.10) Hemoglobin 14.9 G/DL (14.2-18.0) Hematocrit 45.0 % (42.0-52.0) Mean Corpuscular Volume 90 FL (80-99) Mean Corpuscular Hemoglobin 29.9 PG (27.0-31.0) Mean Corpuscular Hemoglobin Concent 33.1 G/DL (32.0-36.0) Red Cell Distribution Width 15.7 % (11.6-14.8) H Platelet Count 270 K/UL (150-450) Mean Platelet Volume 7.1 FL (6.5-10.1) Neutrophils (%) (Auto) 78.3 % (45.0-75.0) H Lymphocytes (%) (Auto) 16.2 % (20.0-45.0) L Monocytes (%) (Auto) 4.4 % (1.0-10.0) Eosinophils (%) (Auto) 0.6 % (0.0-3.0) Basophils (%) (Auto) 0.5 % (0.0-2.0) Sodium Level 138 MMOL/L (136-145) Potassium Level 4.0 MMOL/L (3.5-5.1) Chloride Level 103 MMOL/L (98-107) Carbon Dioxide Level 31 MMOL/L (21-32) Anion Gap 4 mmol/L (5-15) L Blood Urea Nitrogen 31 mg/dL (7-18) H Creatinine 1.0 MG/DL (0.55-1.30) Estimat Glomerular Filtration Rate > 60 mL/min (>60) Glucose Level 100 MG/DL (74-106) Calcium Level 8.0 MG/DL (8.5-10.1) L Total Bilirubin 0.6 MG/DL (0.2-1.0) Direct Bilirubin 0.2 MG/DL (0.0-0.3) Aspartate Amino Transf (AST/SGOT) 33 U/L (15-37) Alanine Aminotransferase (ALT/SGPT) 93 U/L (12-78) H Alkaline Phosphatase 91 U/L (46-116) Total Protein 6.3 G/DL (6.4-8.2) L Albumin 2.2 G/DL (3.4-5.0) L Globulin 4.1 g/dL Albumin/Globulin Ratio 0.5 (1.0-2.7) L General: well developed Head: normocophalic Neck: no rigidity EENT: benign Neurologic Exam Objective General: well developed Head: normocophalic Neck: no rigidity EENT: benign Neuro: Objective nc at more alert, responsive, oriented x 3 non focal, diffuse weakness Impression/Recommendations Diagnostic Impression Assessment and Rec's: 1. Encephalopathy likely 2/2 Covid 19 --> non focal exam --> improved 2. Hypoxia-liekly due to above -> oxygen, on VM improved 3. COVID 19+++ PNA --> isolation ID rec's defer neuro imaging delirium precautions Gissel Quiroga NP Apr 12, 2020 13:42
--- NOTE | 2020-04-12 14:46 | Cardiology Report ---
APPROVED REPORT EXAM: Two-dimensional and M-mode echocardiogram with Doppler and color Doppler. INDICATION Congestive Heart Failure M-Mode DIMENSIONS IVSd1.6 (0.7-1.1cm)Left Atrium (MM)5.8 (1.6-4.0cm) LVDd6.0 (3.5-5.6cm)Aortic Root3.8 (2.0-3.7cm) PWd1.6 (0.7-1.1cm)Aortic Cusp Exc.2.1 (1.5-2.0cm) IVSs1.7 cmEPSS1.4 (>1.0cm) LVDs5.1 (2.5-4.0cm) PWs1.9 cm <Conclusion> Severe global left ventricular hypokinesis. Mild left ventricular enlargement. Left ventricular ejection fraction estimated to be 20-25 %. Mild left ventricular hypertrophy. No evidence of pericardial effusion. Moderate left atrial enlargement. Moderate right ventricular enlargement. Mild right atrial enlargement. Focal aortic valve sclerosis with adequate cusp excursion. Thickened mitral valve leaflets with normal excursion. Mitral annulus and aortic root calcification. Normal pulmonic valve structure. Normal tricuspid valve structure. IVC is normal in size without physiologic collapse suggestive of increased RA pressure. A color flow and spectral Doppler study was performed and revealed: Mild aortic regurgitation. Severe mitral regurgitation. Mitral inflow indicates increased left atrial pressure, suggestive restrictive pattern (Grade III). Severe, tricuspid regurgitation. Tricuspid systolic velocities suggests peak right ventricular systolic pressure of 50 mmHg, consistant with moderate pulmonary hypertension. Severe pulmonic regurgitation present.
[2020-04-12 16:00] VITALS: BP 117/70
--- NOTE | 2020-04-12 21:18 | Surgery Progress Note ---
Surgery Progress Note Subjective Additional Comments late entry patient planned for d/c today improved over all no n/v labs improved okay for d/c Objective Last 24 Hour Vital Signs Date Time Temp Pulse Resp B/P (MAP) Pulse Ox O2 Delivery O2 Flow Rate FiO2 04/12/20 16:00 97.7 102 22 117/70 (86) 99 04/12/20 12:00 97.9 90 20 115/70 (85) 99 04/12/20 12:00 100 04/12/20 11:06 106/69 04/12/20 11:05 82 106/69 04/12/20 09:00 Room Air 04/12/20 08:00 92 04/12/20 07:00 95 Room Air 21 04/12/20 04:00 98.2 85 19 106/69 (81) 95 04/12/20 04:00 82 04/12/20 00:00 97.7 81 19 119/71 (87) 95 04/12/20 00:00 79 04/11/20 23:41 96 Venturi Mask 14.0 55 I&O Intake and Output 04/11/20 04/12/20 19:00 07:00 Intake Total 700 ml 1000 ml Output Total 2500 ml 1500 ml Balance -1800 ml -500 ml Intake Oral 700 ml Other 1000 ml Output Urine Total 2500 ml 1500 ml # Voids 6 4 # Bowel Movements 1 Dressing: saturated Cardiovascular: RSR Respiratory: decreased breath sounds Abdomen: non-tender, present bowel sounds Extremities: no tenderness, no cyanosis Laboratory Tests Test 04/12/20 04:00 White Blood Count 5.8 K/UL (4.8-10.8) Red Blood Count 4.97 M/UL (4.70-6.10) Hemoglobin 14.9 G/DL (14.2-18.0) Hematocrit 45.0 % (42.0-52.0) Mean Corpuscular Volume 90 FL (80-99) Mean Corpuscular Hemoglobin 29.9 PG (27.0-31.0) Mean Corpuscular Hemoglobin Concent 33.1 G/DL (32.0-36.0) Red Cell Distribution Width 15.7 % (11.6-14.8) H Platelet Count 270 K/UL (150-450) Mean Platelet Volume 7.1 FL (6.5-10.1) Neutrophils (%) (Auto) 78.3 % (45.0-75.0) H Lymphocytes (%) (Auto) 16.2 % (20.0-45.0) L Monocytes (%) (Auto) 4.4 % (1.0-10.0) Eosinophils (%) (Auto) 0.6 % (0.0-3.0) Basophils (%) (Auto) 0.5 % (0.0-2.0) Sodium Level 138 MMOL/L (136-145) Potassium Level 4.0 MMOL/L (3.5-5.1) Chloride Level 103 MMOL/L (98-107) Carbon Dioxide Level 31 MMOL/L (21-32) Anion Gap 4 mmol/L (5-15) L Blood Urea Nitrogen 31 mg/dL (7-18) H Creatinine 1.0 MG/DL (0.55-1.30) Estimat Glomerular Filtration Rate > 60 mL/min (>60) Glucose Level 100 MG/DL (74-106) Calcium Level 8.0 MG/DL (8.5-10.1) L Total Bilirubin 0.6 MG/DL (0.2-1.0) Direct Bilirubin 0.2 MG/DL (0.0-0.3) Aspartate Amino Transf (AST/SGOT) 33 U/L (15-37) Alanine Aminotransferase (ALT/SGPT) 93 U/L (12-78) H Alkaline Phosphatase 91 U/L (46-116) Total Protein 6.3 G/DL (6.4-8.2) L Albumin 2.2 G/DL (3.4-5.0) L Globulin 4.1 g/dL Albumin/Globulin Ratio 0.5 (1.0-2.7) L Plan Problems: (1) Hypoxia (2) Pneumonia due to COVID-19 virus (3) Abnormal LFTs Assessment & Plan: significantly elevated lfts on admission no etoh use meds noted and reviewed US ordered trend labs no abd pain exam benign will follow with recs thank you Gallbladder is unremarkable, without stones, wall thickening, nor pericholecystic fluid. Sonographic Sandoval's sign is negative. Common bile duct measures 5 mm in diameter. No intrahepatic biliary ductal dilatation. Liver demonstrates normal echogenicity, no focal abnormality. Portal vein and hepatic veins are patent. Pancreas is incompletely visualized due to overlying bowel gas, visualized portions are unremarkable. Spleen is unremarkable. Left kidney measures 10.2 cm in length. Right kidney measures 10.9 cm length. Both kidneys demonstrate normal echogenicity. There is no hydronephrosis. No focal abnormality . Unremarkable inferior vena cava. Abdominal aorta is partially obscured by bowel gas, visualized portions are non-aneurysmal . Impression: Essentially unremarkable exam. Negative for gallstones, dilated bile ducts, or other significant finding Incompletely visualized pancreas and abdominal aorta Shaji Godinez Apr 12, 2020 21:18
--- NOTE | 2020-04-13 14:40 | Discharge Summary ---
Discharge Summary Discharge Summary _ DATE OF ADMISSION: 04/06/2020 DATE OF DISCHARGE: 04/12/2020 DISCHARGED BY: REASON FOR ADMISSION: 69 years old male with no reported past medical history, presented from home due to shortness of breath. Patient apparently was tested positive for COVID 2 to 3 weeks ago. He reported intermittent dry cough, shortness of breath and lower extremity edema. He reported intermittent fever. Upon evaluation in ED he was hypoxic, saturating 87% on room air and tachypneic with respiratory rate 24. Laboratory work-up revealed no leukocytosis, stable hemoglobin , hematocrit and platelet count. Rapid COVID-19 was positive. D-dimer 2.05 . ferritin 643, LDH 735. Lactic acid 1.8. Chest x-ray revealed diffuse bilateral infiltrates. Troponin 0.076, pro BNP 63098. EKG revealed sinus rhythm , no acute ischemic changes. AST 148, ALT 188, lipase 530 . In emergency department patient received steroids , empiric antibiotic and admitted for further management. CONSULTANTS: boom pump operator Dr. Handy pulmonary Dr. Lucio ID specialist Dr. Oglesby assistant store manager Dr. Edouard surgery [facility] COURSE: Patient admitted to telemetry floor isolation room. Supplemental oxygen provided and titrated to keep pulse oximetry above 92% . HFA provided. Patient was on Dexamethasone and remdesivir. Venous duplex bilateral lower extremity revealed no evidence of acute DVT. Left Langford's cyst accidentally noted. Repeated troponin -0.042. EKG revealed no acute ischemic changes. Per boom pump operator , patient had NSTEMI versus myocarditis due to COVID. Antiplatelet therapy with aspirin and beta-blockade provided. Echocardiogram demonstrated severe global left ventricular hypokinesis with left ventricular ejection fraction estimated to be 20 to 25%. Mild left ventricular hypertrophy. No evidence of pericardial effusion. Left atrial pressure suggestive of restrictive pattern grade 3. Severe tricuspid and mitral regurgitation. Moderate pulmonary hypertension. Guideline directed medical therapy for congestive heart failure provided, including beta-blockade, [place] inhibitor and diuretics (Lasix and Aldactone provided with close monitoring of volumes and cardiorenal parameters. As patient clinically improved he was able to be weaned from oxygen to room via nasal cannula to room air pulse oximetry prior to discharge stable on room air. LFT were closely monitored. Abdominal ultrasound demonstrated no evidence of gallstones, dilated bile ducts. Pancreas and abdominal aorta very incompletely visualized. Hepatitis panel was negative . HIV test was negative. Lipase trended down to normal. LFT were monitored : AST down to normal ALT down to 93 from initial 188. Neurologist followed. Exam was nonfocal. Delirium precautions maintained. Encephalopathy was likely to COVID-19. Patient clinically improved . Neuroimaging was deferred . Patient clinically stabilized and was ready for discharge home. FINAL DIAGNOSES: COVID-19 pneumonia Possible NSTEMI Possible myocarditis due to COVID-19 Encephalopathy likely secondary to COVID-19 Hypoxia Congestive heart failure , systolic and diastolic Severe mitral and tricuspid regurgitation Elevated lipase -resolved DISCHARGE MEDICATIONS: See Medication Reconciliation list. DISCHARGE INSTRUCTIONS: Patient was discharged home. Continue self-isolation for total of 10 days from the day of diagnosis I have been assigned to dictate discharge summary for this account. I was not involved in the patient's management. Dianna Gonzalez NP Apr 13, 2020 14:40
== END 2020-04-12 17:10 | disposition home or self-care (01) | DRG 177 ==
LOC: EMR 18:10 → 2E 18:32 → EDBEDREQSVC 20:07 → EDBEDREQ 20:07
PROC: XW033E5 Introduction of Remdesivir Anti-infective into Peripheral Vein, Percutaneous Approach, New Technology Group 5 (ICD-10-PCS; principal; 2020-04-08)
DX: U07.1 COVID-19 (principal); I21.4 Non-ST elevation (NSTEMI) myocardial infarction; J96.91 Respiratory failure, unspecified with hypoxia; K85.90 Acute pancreatitis without necrosis or infection, unspecified; I50.43 Acute on chronic combined systolic (congestive) and diastolic (congestive) heart failure; J12.82 Pneumonia due to coronavirus disease 2019; G93.40 Encephalopathy, unspecified; E87.3 Alkalosis; N39.0 Urinary tract infection, site not specified; R73.9 Hyperglycemia, unspecified; F10.10 Alcohol abuse, uncomplicated; I49.3 Ventricular premature depolarization; I34.0 Nonrheumatic mitral (valve) insufficiency; I36.1 Nonrheumatic tricuspid (valve) insufficiency; I51.4 Myocarditis, unspecified
CPT/HCPCS: 36415; 71045; 76700; 80053; 81003; 82150; 82248; 82728; 82803; 83605; 83615; 83690; 83735; 83880; 84100; 84439; 84443; 84484; 85007; 85025; 85379; 85610; 85651; 85730; 86140; 86703; 86705; 86709; 86803; 87040; 87340; 93005; 93306; 93970; 96365; 96367; 96375; 99291; J3490; U0002